=== PATIENT | female | born 1985 | race Native Hawaiian/Other Pacific Islander ===

== ENCOUNTER → 2016-07-17 | Outpatient (CLI) | payer OTHER ==
--- NOTE | 2016-07-17 13:10 | XR ---
Lumbar spine HISTORY: Low back pain 3 views of the lumbar spine No comparisons There is multilevel spondylosis, loss of disc height at L3-4, L4-5 and L5-S1. Sclerosis present in th e posterior elements. Lumbar vertebral bodies show preserved height, alignment, and bone mineralizati on IMPRESSION: Degenerative disc disease
== END | disposition home or self-care (01) ==
LOC: RADXRMAIN 11:07
PROVIDERS: ATTEND Internal Medicine
DX: M51.36 Other intervertebral disc degeneration, lumbar region (principal); M51.37 Other intervertebral disc degeneration, lumbosacral region
CPT/HCPCS: 72100

== ENCOUNTER → 2017-10-25 | Outpatient (CLI) | payer OTHER ==
--- NOTE | 2017-10-25 10:26 | US ---
EXAMINATION TYPE: US liver DATE OF EXAM: 10/25/2017 COMPARISON: US CLINICAL HISTORY: R94.5 ABN LIVER FUNCTIONS; on medication for diabetes and HTN; HT 5'9 and WT 284lbs per patient; gallbladder removed EXAM MEASUREMENTS: Liver Length: 21.1 cm Gallbladder Wall: surgically removed CBD: 0.4 cm Right Kidney: 12.2 x 6.9 x 4.9 cm Pancreas: Unremarkable Liver: enlarged. There is increased echogenicity of the hepatic parenchyma with diminished visualiza tion of the portal triads most commonly relating to hepatic steatosis and limiting evaluation for und erlying hepatic masses. Gallbladder: surgically absent Evidence for sonographic Griggs's sign: no CBD: wnl Right Kidney: wnl IMPRESSION: 1. Findings most commonly related to hepatic steatosis appearing mild in degree. Correlate with resul ts of the abnormal liver function tests. 2. Surgical absence of the gallbladder. Common bile duct is within normal limits.
== END | disposition home or self-care (01) ==
LOC: RADUSWWP 09:31
PROVIDERS: ATTEND Internal Medicine
DX: R94.5 Abnormal results of liver function studies (principal); Z90.49 Acquired absence of other specified parts of digestive tract
CPT/HCPCS: 76705

== ENCOUNTER 2020-03-30 14:42 | Emergency (ER) | payer OTHER ==
[2020-03-30 15:02] VITALS: RESP 18
[2020-03-30] MEDS ORDERED: ONDANSETRON 4 MG/2 ML VIAL IVP STA (15:06)
[2020-03-30] MEDS ORDERED: SODIUM CHLORIDE 0.9% 1,000 ML IV STA (15:07)
[2020-03-30] MEDS ORDERED: ALBUTEROL HFA INHALER INHALATION STA (15:07)
--- NOTE | 2020-03-30 15:12 | ED ---
General Adult HPI - General Chief complaint: Nausea/Vomiting/Diarrhea Stated complaint: Fever,cough,nausea Time Seen by Provider: 03/30/20 14:49 Source: patient Mode of arrival: ambulatory Limitations: no limitations - History of Present Illness Initial comments: 34-year-old female with a past medical history of asthma, ovarian cancer, diabetes mellitus, hyperlipidemia, hypertension, migraines to the emergency room for multiple complaints. Patient states she has been nauseous and vomiting since at least Sunday which is about 4 days. States she vomited 3 times today. Patient also admits to diarrhea. She denies abdominal pain. Patient states she is also significant cough. Denies coughing up any phlegm. Denies shortness of breath. States her chest feels like there is mucus in it. Patient states she went to [facility] and had a covid test that is not yet resulted. They did give her an inhaler. No chest x-ray. Patient's presents today because symptoms still have not resolved. She denies fevers. She denies chest pain or shortness of breath. Patient has no other complaints at this time including shortness of breath, chest pain, abdominal pain, headache, or visual changes. - Related Data Home Medications Medication Instructions Recorded Confirmed Atorvastatin [Lipitor] 10 mg PO HS 12/09/14 10/24/15 lisinopriL [Zestril] 10 mg PO DAILY 12/09/14 10/24/15 metFORMIN HCL [Glucophage] 500 mg PO BID 12/09/14 10/24/15 Previous Rx's Medication Instructions Recorded Azithromycin [Zithromax Z-pack (6 250 mg PO DIRECTED #6 tab 03/30/20 tabs)] Benzonatate [Tessalon Perles] 200 mg PO Q8H PRN #15 capsule 03/30/20 Allergies Allergy/AdvReac Type Severity Reaction Status Date / Time No Known Allergies Allergy Verified 03/30/20 15:02 Review of Systems ROS Statement: Those systems with pertinent positive or pertinent negative responses have been documented in the HPI. ROS Other: All systems not noted in ROS Statement are negative. Past Medical History Past Medical History: Asthma, Cancer, Diabetes Mellitus, Hyperlipidemia, Hypertension, Osteoarthritis (OA) Additional Past Medical History / Comment(s): Migraines. HX OVARIAN CA. Abdominal Pain- vomiting and diarrhea, ON/OFF. RECENT BLOOD IN URINE X2. History of Any Multi-Drug Resistant Organisms: None Reported Past Surgical History: Section Additional Past Surgical History / Comment(s): Rt Oophorectomy, recent EGD,colon oscopy Past Anesthesia/Blood Transfusion Reactions: No Reported Reaction Past Psychological History: No Psychological Hx Reported Smoking Status: Never smoker Past Alcohol Use History: None Reported Past Drug Use History: None Reported - Past Family History Mother Family Medical History: No Reported History General Exam Limitations: no limitations General appearance: alert, in no apparent distress Head exam: Present: atraumatic Eye exam: Present: normal appearance, PERRL, EOMI. Absent: scleral icterus ENT exam: Present: normal exam, mucous membranes moist Neck exam: Present: normal inspection, full ROM. Absent: tenderness, meningismus, lymphadenopathy Respiratory exam: Present: normal lung sounds bilaterally. Absent: respiratory distress, wheezes, rales, rhonchi, stridor Cardiovascular Exam: Present: regular rate, normal rhythm, normal heart sounds. Absent: systolic murmur, diastolic murmur, rubs, gallop, clicks GI/Abdominal exam: Present: soft, normal bowel sounds. Absent: distended, tenderness, guarding, rebound, rigid Neurological exam: Present: alert Course Vital Signs 03/30/20 03/30/20 14:50 16:24 Temperature 99.1 F Pulse Rate 85 82 Respiratory 18 18 Rate Blood Pressure 135/80 133/82 O2 Sat by Pulse 97 96 Oximetry EKG Findings - EKG Comments: EKG Findings:: Normal sinus rhythm, ventricular rate 66, CO interval 166, QTc 469 Medical Decision Making - Medical Decision Making Vitals are stable. Patient is well-appearing. No respiratory distress. CBC unremarkable. She does have leukopenia which is likely associated with viral illness. CMP does show hyperglycemia. Patient is insulin-dependent diabetic. She does have 4+ glucose in the urine. Ketones are likely related to patient's nausea and vomiting. Anion gap is 7. Repeat glucose is slightly improved at 262. Patient reports she hasn't used her insulin pen yet. She will use this when she gets home. Patient was given a liter of fluids and Zofran and did have improvement in symptoms. Coronavirus here is negative however. Chest x-ray however does show patchy scattered infiltrates greater on the left, consider atypical pneumonia. Patient was treated with Rocephin and azithromycin. Given high clinical suspicion of Covid PCR test was obtained as well at Dr. Gardner's request. - Lab Data Result diagrams: 03/30/20 15:21 03/30/20 15:21 Lab Results 03/30/20 03/30/20 03/30/20 Range/Units 15:02 15:02 15:21 WBC 2.8 L (3.8-10.6) k/uL RBC 4.92 (3.80-5.40) m/uL Hgb 14.6 (11.4-16.0) gm/dL Hct 42.0 (34.0-46.0) % MCV 85.3 (80.0-100.0) fL MCH 29.6 (25.0-35.0) pg MCHC 34.7 (31.0-37.0) g/dL RDW 11.5 (11.5-15.5) % Plt Count 189 (150-450) k/uL MPV 7.6 Neutrophils % 61 % Lymphocytes % 28 % Monocytes % 6 % Eosinophils % 1 % Basophils % 2 % Neutrophils # 1.7 (1.3-7.7) k/uL Lymphocytes # 0.8 L (1.0-4.8) k/uL Monocytes # 0.2 (0-1.0) k/uL Eosinophils # 0.0 (0-0.7) k/uL Basophils # 0.1 (0-0.2) k/uL Sodium (137-145) mmol/L Potassium (3.5-5.1) mmol/L Chloride (98-107) mmol/L Carbon Dioxide (22-30) mmol/L Anion Gap mmol/L BUN (7-17) mg/dL Creatinine (0.52-1.04) mg/dL Est GFR (CKD-EPI)AfAm (>60 ml/min/1.73 sqM) Est GFR (CKD-EPI)NonAf (>60 ml/min/1.73 sqM) Glucose (74-99) mg/dL Calcium (8.4-10.2) mg/dL Total Bilirubin (0.2-1.3) mg/dL AST (14-36) U/L ALT (4-34) U/L Alkaline Phosphatase (38-126) U/L Total Protein (6.3-8.2) g/dL Albumin (3.5-5.0) g/dL Lipase (23-300) U/L Urine Color Yellow Urine Appearance Clear (Clear) Urine pH 6.5 (5.0-8.0) Ur Specific [place] 1.027 (1.001-1.035) Urine Protein 1+ H (Negative) Urine Glucose (UA) 4+ H (Negative) Urine Ketones 2+ H (Negative) Urine Blood Negative (Negative) Urine Nitrite Negative (Negative) Urine Bilirubin Negative (Negative) Urine Urobilinogen <2.0 (<2.0) mg/dL Ur Leukocyte Esterase Small H (Negative) Urine RBC <1 (0-5) /hpf Urine WBC 6 H (0-5) /hpf Ur Squamous Epith Cells 1 (0-4) /hpf Urine Bacteria Rare H (None) /hpf Urine Mucus Few H (None) /hpf Urine HCG, Qual Not Detected (Not Detectd) Coronavirus (PCR) (Not Detectd) 03/30/20 03/30/20 Range/Units 15:21 15:21 WBC (3.8-10.6) k/uL RBC (3.80-5.40) m/uL Hgb (11.4-16.0) gm/dL Hct (34.0-46.0) % MCV (80.0-100.0) fL MCH (25.0-35.0) pg MCHC (31.0-37.0) g/dL RDW (11.5-15.5) % Plt Count (150-450) k/uL MPV Neutrophils % % Lymphocytes % % Monocytes % % Eosinophils % % Basophils % % Neutrophils # (1.3-7.7) k/uL Lymphocytes # (1.0-4.8) k/uL Monocytes # (0-1.0) k/uL Eosinophils # (0-0.7) k/uL Basophils # (0-0.2) k/uL Sodium 135 L (137-145) mmol/L Potassium 4.5 (3.5-5.1) mmol/L Chloride 102 (98-107) mmol/L Carbon Dioxide 26 (22-30) mmol/L Anion Gap 7 mmol/L BUN 6 L (7-17) mg/dL Creatinine 0.34 L (0.52-1.04) mg/dL Est GFR (CKD-EPI)AfAm >90 (>60 ml/min/1.73 sqM) Est GFR (CKD-EPI)NonAf >90 (>60 ml/min/1.73 sqM) Glucose 272 H (74-99) mg/dL Calcium 9.3 (8.4-10.2) mg/dL Total Bilirubin 0.6 (0.2-1.3) mg/dL AST 41 H (14-36) U/L ALT 26 (4-34) U/L Alkaline Phosphatase 90 (38-126) U/L Total Protein 7.1 (6.3-8.2) g/dL Albumin 3.4 L (3.5-5.0) g/dL Lipase 35 (23-300) U/L Urine Color Urine Appearance (Clear) Urine pH (5.0-8.0) Ur Specific [place] (1.001-1.035) Urine Protein (Negative) Urine Glucose (UA) (Negative) Urine Ketones (Negative) Urine Blood (Negative) Urine Nitrite (Negative) Urine Bilirubin (Negative) Urine Urobilinogen (<2.0) mg/dL Ur Leukocyte Esterase (Negative) Urine RBC (0-5) /hpf Urine WBC (0-5) /hpf Ur Squamous Epith Cells (0-4) /hpf Urine Bacteria (None) /hpf Urine Mucus (None) /hpf Urine HCG, Qual (Not Detectd) Coronavirus (PCR) Not Detected (Not Detectd) Disposition Clinical Impression: Cough, Pneumonia, Hyperglycemia Disposition: HOME SELF-CARE Condition: Good Instructions (If sedation given, give patient instructions): Acute Nausea and Vomiting (ED), Acute Cough (ED) Additional Instructions: Please take antibiotic as directed. You were given a dose today so start this tomorrow. Take Tessalon Perles as needed for cough. Follow up on additional Covid test. Drink plenty of fluids. Follow-up with your doctor for high blood sugar. Return to the emergency room for any worsening symptoms. Prescriptions: Benzonatate [Tessalon Perles] 200 mg PO Q8H PRN #15 capsule PRN Reason: Cough Azithromycin [Zithromax Z-pack (6 tabs)] 250 mg PO DIRECTED #6 tab Is patient prescribed a controlled substance at d/c from ED?: No Referrals: Nael Alcocer MD [Primary Care Provider] - 1-2 days Time of Disposition: 16:26
[2020-03-30 15:16] LABS: Appearance,Urine Clear (Clear); Bacteria,Urine Rare /hpf; Bilirubin,Urine Negative (Negative); Blood,Urine Negative (Negative); Color,Urine Yellow; Glucose,Urine (UA) 4+ (Negative); Leukocyte Esterase,Urine Small (Negative); Mucus,Urine Few /hpf; Nitrite,Urine Negative (Negative); PH, Urine 6.5 (5.0-8.0); Protein,Urine 1+ (Negative); RBC,Urine <1 /hpf (0-5); Specific Gravity,Urine 1.027 (1.001-1.035); Squamous Epithelial Cell,Urine 1 /hpf (0-4); Urobilinogen,Urine <2.0 mg/dL (<2.0); WBC,Urine 6 /hpf (0-5)
[2020-03-30 15:18] LABS: Ketones,Urine 2+ (Negative)
--- NOTE | 2020-03-30 15:48 | XR ---
EXAMINATION TYPE: XR chest 1V portable DATE OF EXAM: 03/30/2020 COMPARISON: None INDICATION: Cough nausea vomiting fever TECHNIQUE: Single frontal view of the chest is obtained. FINDINGS: The heart size is normal. The pulmonary vasculature is normal. Patchy infiltrate is present greater on the left. Findings are nonspecific. Atypical pneumonia should be considered. IMPRESSION: 1. Patchy scattered infiltrates greater on the left. Consider atypical pneumonia. Follow-up can be pe rformed as clinically indicated.
[2020-03-30 15:57] LABS: ALT 26 U/L (4-34); AST 41 U/L (14-36); African American GFR (CKD) >90 (>60 ml/min/1.73 sqM); Albumin 3.4 g/dL (3.5-5.0); Alkaline Phosphatase 90 U/L (38-126); Anion Gap 7 mmol/L; Blood Urea Nitrogen 6 mg/dL (7-17); Calcium 9.3 mg/dL (8.4-10.2); Carbon Dioxide 26 mmol/L (22-30); Chloride 102 mmol/L (98-107); Glucose 272 mg/dL (74-99); Lipase 35 U/L (23-300); Non-African American GFR(CKD) >90 (>60 ml/min/1.73 sqM); Potassium 4.5 mmol/L (3.5-5.1); Sodium 135 mmol/L (137-145); Total Bilirubin 0.6 mg/dL (0.2-1.3); Total Protein 7.1 g/dL (6.3-8.2)
[2020-03-30 16:00] LABS: Basophils # (A) 0.1 k/uL (0-0.2); Basophils % (A) 2 %; Eosinophils % (A) 1 %; HGB 14.6 gm/dL (11.4-16.0); Lymphocytes # (A) 0.8 k/uL (1.0-4.8); Lymphocytes % (A) 28 %; MCH 29.6 pg (25.0-35.0); MCHC 34.7 g/dL (31.0-37.0); MCV 85.3 fL (80.0-100.0); Mean Platelet Volume 7.6; Monocytes # (A) 0.2 k/uL (0-1.0); Monocytes % (A) 6 %; Neutrophils # (A) 1.7 k/uL (1.3-7.7); Neutrophils % (A) 61 %; Platelet Count 189 k/uL (150-450); RBC 4.92 m/uL (3.80-5.40); RDW 11.5 % (11.5-15.5); WBC 2.8 k/uL (3.8-10.6)
[2020-03-30] MEDS ORDERED: ACETAMINOPHEN TAB 500 MG TAB PO STA (16:22)
[2020-03-30] MEDS ORDERED: AZITHROMYCIN 500 MG TAB PO STA (16:22)
[2020-03-30] MEDS ORDERED: cefTRIAXone IN SWFI 1,000 MG/10 ML SYRINGE IVP STA (16:22)
[2020-03-30 16:25] VITALS: BP 133/82; PULSE 82
[2020-03-30 16:31] LABS: Glucose,Whole Blood 260 mg/dL (75-99)
[2020-03-30 16:43] VITALS: TEMP 98.6
== END 2020-03-30 16:45 | disposition home or self-care (01) ==
LOC: EC 14:42
DX: J18.9 Pneumonia, unspecified organism (principal); E11.65 Type 2 diabetes mellitus with hyperglycemia; E78.5 Hyperlipidemia, unspecified; I10 Essential (primary) hypertension; Z20.822 Contact with and (suspected) exposure to COVID-19; Z79.84 Long term (current) use of oral hypoglycemic drugs; Z79.899 Other long term (current) drug therapy; Z90.721 Acquired absence of ovaries, unilateral; Z85.43 Personal history of malignant neoplasm of ovary
CPT/HCPCS: 36415; 94640; 80053; 83690; 85025; 81001; 81025; 87635; 71045; 99284; 96374; 96375; 96361; U0003; U0005; J2405; J0696

== ENCOUNTER 2020-04-22 14:01 | Emergency (ER) | payer OTHER ==
[2020-04-22 14:20] VITALS: RESP 18; TEMP 98.8
--- NOTE | 2020-04-22 14:58 | ED ---
General Adult HPI - General Chief complaint: Recheck/Abnormal Lab/Rx Stated complaint: leg pain Time Seen by Provider: 04/22/20 14:30 Source: patient Mode of arrival: ambulatory Limitations: no limitations - History of Present Illness Initial comments: 34-year-old female with a past medical history of IDDM, hyperlipidemia, hypertension, neuropathy, ovarian cancer with right oophorectomy presents to the emergency room for ultimate complaints. Patient initial complaint includes left toe pain. Patient reports she has had a chronic wound on the left toe for probably 6 months being treated by Dr. Sanchez. States he usually cleans up the wound but she has not been able to see him for some time. Reports that she noticed a red streak going up her toe and she is having left calf pain. Patient is concerned the infection could be worsening. She denies fevers. Patient's second complaint includes vaginal swelling. Patient reports she has had pain a nd swelling in the vaginal area for the past 2 days. Patient reports she recently did discontinue an antibiotic for pneumonia. She states it feels somewhat raw. Admits to slight discharge. Denies abdominal pain.Patient has no other complaints at this time including shortness of breath, chest pain, abdominal pain, nausea or vomiting, headache, or visual changes. - Related Data Home Medications Medication Instructions Recorded Confirmed Azithromycin [Zithromax Z-pack (6 See Taper PO DAILY 04/22/20 04/22/20 tabs)] Insulin Detemir (Levemir) [Levemir] 35 unit SQ DAILY 04/22/20 04/22/20 Loratadine [Claritin] 10 mg PO DAILY 04/22/20 04/22/20 lisinopriL [Zestril] 5 mg PO DAILY 04/22/20 04/22/20 medroxyPROGESTERone [Depo-Provera] 150 mg IM Q90D 04/22/20 04/22/20 Previous Rx's Medication Instructions Recorded Amoxicillin/Potassium Clav 1 tab PO Q12HR #20 tab 04/22/20 [Augmentin 875-125 Tablet] Fluconazole [Diflucan] 150 mg PO DAILY #2 tab 04/22/20 Nystatin 100,000Unit/gm Cream 1 applic TOPICAL TID #20 gm 04/22/20 [Mycostatin Cream] Allergies Allergy/AdvReac Type Severity Reaction Status Date / Time No Known Allergies Allergy Verified 04/22/20 15:26 Review of Systems ROS Statement: Those systems with pertinent positive or pertinent negative responses have been documented in the HPI. ROS Other: All systems not noted in ROS Statement are negative. Past Medical History Past Medical History: Asthma, Cancer, Diabetes Mellitus, Hyperlipidemia, Hyper tension, Osteoarthritis (OA) Additional Past Medical History / Comment(s): Migraines. HX OVARIAN CA. Abdominal Pain- vomiting and diarrhea, ON/OFF. RECENT BLOOD IN URINE X2. History of Any Multi-Drug Resistant Organisms: None Reported Past Surgical History: Section Additional Past Surgical History / Comment(s): Rt Oophorectomy, recent EGD,colonoscopy Past Anesthesia/Blood Transfusion Reactions: No Reported Reaction Past Psychological History: No Psychological Hx Reported Smoking Status: Never smoker Past Alcohol Use History: None Reported Past Drug Use History: Marijuana - Past Family History Mother Family Medical History: No Reported History General Exam Limitations: no limitations General appearance: alert, in no apparent distress Head exam: Present: atraumatic Eye exam: Present: normal appearance, PERRL, EOMI. Absent: scleral icterus ENT exam: Present: normal exam, mucous membranes moist Neck exam: Present: normal inspection, full ROM Respiratory exam: Present: normal lung sounds bilaterally. Absent: respiratory distress, wheezes Cardiovascular Exam: Present: regular rate, normal rhythm, normal heart sounds GI/Abdominal exam: Present: soft, normal bowel sounds. Absent: distended, tenderness External exam: Present: erythema (Slight erythema noted around the vulva ). Absent: normal external exam, swelling, lesions, lacerations, ecchymosis Speculum exam: Present: vaginal discharge (White vaginal discharge consistent with likely yeast). Absent: normal speculum exam, erythema, cervical discharge, vaginal bleeding, foreign body, tissue, laceration By manual exam: Absent: cervical motion tenderness Course Vital Signs 04/22/20 04/22/20 14:16 16:28 Temperature 98.8 F Pulse Rate 108 H 89 Respiratory 18 18 Rate Blood Pressure 141/91 138/75 O2 Sat by Pulse 99 98 Oximetry Medical Decision Making - Medical Decision Making Vitals are stable. Patient initially tachycardic over this is likely secondary to pain. Physical exam does reveal an open wound on the plantar aspect of the left second toe. This does not track to the bone when the Q-tip is used to inspect the wound. I did do a wound culture. Patient reported streaking redness up the foot. I did not appreciate this and she states it seems to have improved. CBC shows a normal white blood cell count of 7.2. CMP reveals hyperglycemia. Patient is an insulin-dependent diabetic. Glucose initially 411. She was given 1.5 L of fluids this did improve to 354. At that point she was given 10 IV insulin. X-ray of the toe did not show any evidence of osteomyelitis. Patient was also complaining of left calf pain, ultrasound negative. Urinalysis does show 1+ ketones. She does have 26 white blood cells however there are 6 squamous cells as well. I did discuss this case with patient's infectious disease physician Dr. Sanchez. He recommends starting patient on Augmentin and having him follow-up in his office. She will call tomorrow for an appointment. Patient also has erythema noted of the genital area and physical exam at this point is consistent with a yeast infection. She'll be treated with Diflucan. However I do have genital culture pending. - Lab Data Result diagrams: 04/22/20 15:43 04/22/20 15:43 Lab Results 04/22/20 04/22/20 04/22/20 Range/Units 15:25 15:25 15:30 WBC (3.8-10.6) k/uL RBC (3.80-5.40) m/uL Hgb (11.4-16.0) gm/dL Hct (34.0-46.0) % MCV (80.0-100.0) fL MCH (25.0-35.0) pg MCHC (31.0-37.0) g/dL RDW (11.5-15.5) % Plt Count (150-450) k/uL MPV Neutrophils % % Lymphocytes % % Monocytes % % Eosinophils % % Basophils % % Neutrophils # (1.3-7.7) k/uL Lymphocytes # (1.0-4.8) k/uL Monocytes # (0-1.0) k/uL Eosinophils # (0-0.7) k/uL Basophils # (0-0.2) k/uL Sodium (137-145) mmol/L Potassium (3.5-5.1) mmol/L Chloride (98-107) mmol/L Carbon Dioxide (22-30) mmol/L Anion Gap mmol/L BUN (7-17) mg/dL Creatinine (0.52-1.04) mg/dL Est GFR (CKD-EPI)AfAm (>60 ml/min/1.73 sqM) Est GFR (CKD-EPI)NonAf (>60 ml/min/1.73 sqM) Glucose (74-99) mg/dL POC Glucose (mg/dL) (75-99) mg/dL POC Glu Scuba Diver ID Plasma Lactic Acid Harris (0.7-2.0) mmol/L Calcium (8.4-10.2) mg/dL Total Bilirubin (0.2-1.3) mg/dL AST (14-36) U/L ALT (4-34) U/L Alkaline Phosphatase (38-126) U/L C-Reactive Protein (<10.0) mg/L Total Protein (6.3-8.2) g/dL Albumin (3.5-5.0) g/dL Urine Color Light Yellow Urine Appearance Cloudy H (Clear) Urine pH 6.0 (5.0-8.0) Ur Specific [place] 1.040 H (1.001-1.035) Urine Protein Negative (Negative) Urine Glucose (UA) 4+ H (Negative) Urine Ketones 1+ H (Negative) Urine Blood Small H (Negative) Urine Nitrite Negative (Negative) Urine Bilirubin Negative (Negative) Urine Urobilinogen <2.0 (<2.0) mg/dL Ur Leukocyte Esterase Large H (Negative) Urine RBC 15 H (0-5) /hpf Urine WBC 26 H (0-5) /hpf Ur Squamous Epith Cells 6 H (0-4) /hpf Urine Bacteria Rare H (None) /hpf Urine HCG, Qual Not Detected (Not Detectd) Trichomonas Ag (Rapid) Negative (Negative) 04/22/20 04/22/20 04/22/20 Range/Units 15:43 15:43 15:43 WBC 7.2 (3.8-10.6) k/uL RBC 5.18 (3.80-5.40) m/uL Hgb 15.6 (11.4-16.0) gm/dL Hct 45.0 (34.0-46.0) % MCV 86.8 (80.0-100.0) fL MCH 30.2 (25.0-35.0) pg MCHC 34.8 (31.0-37.0) g/dL RDW 12.8 (11.5-15.5) % Plt Count 234 (150-450) k/uL MPV 8.0 Neutrophils % 69 % Lymphocytes % 24 % Monocytes % 3 % Eosinophils % 2 % Basophils % 1 % Neutrophils # 4.9 (1.3-7.7) k/uL Lymphocytes # 1.7 (1.0-4.8) k/uL Monocytes # 0.2 (0-1.0) k/uL Eosinophils # 0.1 (0-0.7) k/uL Basophils # 0.0 (0-0.2) k/uL Sodium 132 L (137-145) mmol/L Potassium 4.3 (3.5-5.1) mmol/L Chloride 99 (98-107) mmol/L Carbon Dioxide 25 (22-30) mmol/L Anion Gap 8 mmol/L BUN 11 (7-17) mg/dL Creatinine 0.38 L (0.52-1.04) mg/dL Est GFR (CKD-EPI)AfAm >90 (>60 ml/min/1.73 sqM) Est GFR (CKD-EPI)NonAf >90 (>60 ml/min/1.73 sqM) Glucose 411 H (74-99) mg/dL POC Glucose (mg/dL) (75-99) mg/dL POC Glu Scuba Diver ID Plasma Lactic Acid [place] 1.6 (0.7-2.0) mmol/L Calcium 9.8 (8.4-10.2) mg/dL Total Bilirubin 0.5 (0.2-1.3) mg/dL AST 28 (14-36) U/L ALT 31 (4-34) U/L Alkaline Phosphatase 100 (38-126) U/L C-Reactive Protein 7.9 (<10.0) mg/L Total Protein 7.5 (6.3-8.2) g/dL Albumin 3.7 (3.5-5.0) g/dL Urine Color Urine Appearance (Clear) Urine pH (5.0-8.0) Ur Specific [place] (1.001-1.035) Urine Protein (Negative) Urine Glucose (UA) (Negative) Urine Ketones (Negative) Urine Blood (Negative) Urine Nitrite (Negative) Urine Bilirubin (Negative) Urine Urobilinogen (<2.0) mg/dL Ur Leukocyte Esterase (Negative) Urine RBC (0-5) /hpf Urine WBC (0-5) /hpf Ur Squamous Epith Cells (0-4) /hpf Urine Bacteria (None) /hpf Urine HCG, Qual (Not Detectd) Trichomonas Ag (Rapid) (Negative) 04/22/20 Range/Units 17:02 WBC (3.8-10.6) k/uL RBC (3.80-5.40) m/uL Hgb (11.4-16.0) gm/dL Hct (34.0-46.0) % MCV (80.0-100.0) fL MCH (25.0-35.0) pg MCHC (31.0-37.0) g/dL RDW (11.5-15.5) % Plt Count (150-450) k/uL MPV Neutrophils % % Lymphocytes % % Monocytes % % Eosinophils % % Basophils % % Neutrophils # (1.3-7.7) k/uL Lymphocytes # (1.0-4.8) k/uL Monocytes # (0-1.0) k/uL Eosinophils # (0-0.7) k/uL Basophils # (0-0.2) k/uL Sodium (137-145) mmol/L Potassium (3.5-5.1) mmol/L Chloride (98-107) mmol/L Carbon Dioxide (22-30) mmol/L Anion Gap mmol/L BUN (7-17) mg/dL Creatinine (0.52-1.04) mg/dL Est GFR (CKD-EPI)AfAm (>60 ml/min/1.73 sqM) Est GFR (CKD-EPI)NonAf (>60 ml/min/1.73 sqM) Glucose (74-99) mg/dL POC Glucose (mg/dL) 354 H (75-99) mg/dL POC Glu Scuba Diver ID Manuel Aguiar Plasma Lactic Acid [place] (0.7-2.0) mmol/L Calcium (8.4-10.2) mg/dL Total Bilirubin (0.2-1.3) mg/dL AST (14-36) U/L ALT (4-34) U/L Alkaline Phosphatase (38-126) U/L C-Reactive Protein (<10.0) mg/L Total Protein (6.3-8.2) g/dL Albumin (3.5-5.0) g/dL Urine Color Urine Appearance (Clear) Urine pH (5.0-8.0) Ur Specific [place] (1.001-1.035) Urine Protein (Negative) Urine Glucose (UA) (Negative) Urine Ketones (Negative) Urine Blood (Negative) Urine Nitrite (Negative) Urine Bilirubin (Negative) Urine Urobilinogen (<2.0) mg/dL Ur Leukocyte Esterase (Negative) Urine RBC (0-5) /hpf Urine WBC (0-5) /hpf Ur Squamous Epith Cells (0-4) /hpf Urine Bacteria (None) /hpf Urine HCG, Qual (Not Detectd) Trichomonas Ag (Rapid) (Negative) Disposition Clinical Impression: Hyperglycemia, Chronic wound of extremity, Cellulitis Disposition: HOME SELF-CARE Condition: Good Instructions (If sedation given, give patient instructions): Cellulitis (ED), Chronic Wound Care (ED) Additional Instructions: Please take antibiotic as directed. Take your Diflucan as well. Please monitor for worsening symptoms and return if these occur. Otherwise follow-up closely with Dr. Jaimes by calling tomorrow for an appointment. Follow up with her VEH[employer] as well for vaginal discomfort. Prescriptions: Amoxicillin/Potassium Clav [Augmentin 875-125 Tablet] 1 tab PO Q12HR #20 tab Fluconazole [Diflucan] 150 mg PO DAILY #2 tab Nystatin 100,000Unit/gm Cream [Mycostatin Cream] 1 applic TOPICAL TID #20 gm Is patient prescribed a controlled substance at d/c from ED?: No Referrals: Nael Alcocer MD [Primary Care Provider] - 1-2 days Darin Jaimes MD [STAFF PHYSICIAN] - 1-2 days Time of Disposition: 17:57
--- NOTE | 2020-04-22 15:23 | XR ---
EXAMINATION TYPE: XR toes LT DATE OF EXAM: 04/22/2020 COMPARISON: NONE HISTORY: Chronic wound TECHNIQUE: 3 views of the left second toe are submitted. FINDINGS: Soft tissue ulceration noted to involve the left second toe. There is no evidence for bony destructive process to suggest osteomyelitis. No fracture or dislocation seen. IMPRESSION: Open wound left second toe without radiographic evidence to suggest osteomyelitis at thi s time.
[2020-04-22] MEDS ORDERED: HYDROmorphone 0.5 MG/0.5 ML SYRINGE IVP STA (15:26)
[2020-04-22] MEDS: SODIUM CHLORIDE 0.9% 500 ML 500 ML IV SCH ×2 (15:40→15:47)
[2020-04-22 15:43] LABS: Appearance,Urine Cloudy (Clear); Bacteria,Urine Rare /hpf; Bilirubin,Urine Negative (Negative); Blood,Urine Small (Negative); Color,Urine Light Yellow; Glucose,Urine (UA) 4+ (Negative); Ketones,Urine 1+ (Negative); Leukocyte Esterase,Urine Large (Negative); Nitrite,Urine Negative (Negative); Protein,Urine Negative (Negative); RBC,Urine 15 /hpf (0-5); Squamous Epithelial Cell,Urine 6 /hpf (0-4); Urobilinogen,Urine <2.0 mg/dL (<2.0); WBC,Urine 26 /hpf (0-5)
[2020-04-22 15:53] LABS: Basophils % (A) 1 %; Eosinophils # (A) 0.1 k/uL (0-0.7); Eosinophils % (A) 2 %; HGB 15.6 gm/dL (11.4-16.0); Lymphocytes # (A) 1.7 k/uL (1.0-4.8); Lymphocytes % (A) 24 %; MCH 30.2 pg (25.0-35.0); MCHC 34.8 g/dL (31.0-37.0); MCV 86.8 fL (80.0-100.0); Monocytes # (A) 0.2 k/uL (0-1.0); Monocytes % (A) 3 %; Neutrophils # (A) 4.9 k/uL (1.3-7.7); Neutrophils % (A) 69 %; Platelet Count 234 k/uL (150-450); RBC 5.18 m/uL (3.80-5.40); RDW 12.8 % (11.5-15.5); WBC 7.2 k/uL (3.8-10.6)
[2020-04-22 16:04] LABS: ALT 31 U/L (4-34); AST 28 U/L (14-36); African American GFR (CKD) >90 (>60 ml/min/1.73 sqM); Albumin 3.7 g/dL (3.5-5.0); Alkaline Phosphatase 100 U/L (38-126); Anion Gap 8 mmol/L; Blood Urea Nitrogen 11 mg/dL (7-17); C Reactive Protein 7.9 mg/L (<10.0); Calcium 9.8 mg/dL (8.4-10.2); Carbon Dioxide 25 mmol/L (22-30); Chloride 99 mmol/L (98-107); Glucose 411 mg/dL (74-99); Non-African American GFR(CKD) >90 (>60 ml/min/1.73 sqM); Potassium 4.3 mmol/L (3.5-5.1); Sodium 132 mmol/L (137-145); Total Bilirubin 0.5 mg/dL (0.2-1.3); Total Protein 7.5 g/dL (6.3-8.2)
--- NOTE | 2020-04-22 16:15 | US ---
EXAMINATION TYPE: US venous doppler duplex LE LT DATE OF EXAM: 04/22/2020 4:04 PM COMPARISON: NONE CLINICAL HISTORY: r/o dvt. diabetic pt with left toe wounds, pain in calf, no h/o dvt SIDE PERFORMED: Left TECHNIQUE: The lower extremity deep venous system is examined utilizing real time linear array sonog garret with graded compression, doppler sonography and color-flow sonography. VESSELS IMAGED: Common Femoral Vein Deep Femoral Vein Greater Saphenous Vein * Femoral Vein Popliteal Vein Small Saphenous Vein * Proximal Calf Veins (* superficial vessels) Left Leg: Negative for DVT IMPRESSION: No evidence for DVT.
[2020-04-22] MEDS ORDERED: SODIUM CHLORIDE 0.9% 1,000 ML IV STA (16:16)
[2020-04-22] MEDS ORDERED: cefTRIAXone IN SWFI 1,000 MG/10 ML SYRINGE IVP STA (16:47)
[2020-04-22 17:03] LABS: Glucose,Whole Blood 354 mg/dL (75-99)
[2020-04-22] MEDS ORDERED: INSULIN REGULAR 100 UNIT/ML VIAL IV STA (17:31)
[2020-04-22] MEDS ORDERED: ACET/COD 300 MG/30 MG STARTER PACK 6 TAB BTL PO STA (18:05)
[2020-04-22 18:25] LABS: Glucose,Whole Blood 241 mg/dL (75-99)
[2020-04-22 18:57] VITALS: BP 120/84; PULSE 98
[2020-04-23 16:21] LABS: C. trachomatis,PCR Negative (Neg,Equiv); Chlamydia trachomatis Source Vagina; N. gonorrhoeae,PCR Negative (Neg,Equiv); Neisseria Source Vagina
== END 2020-04-22 18:57 | disposition home or self-care (01) ==
LOC: EC 14:01
DX: L03.032 Cellulitis of left toe (principal); I10 Essential (primary) hypertension; E11.65 Type 2 diabetes mellitus with hyperglycemia; Z79.4 Long term (current) use of insulin; Z79.899 Other long term (current) drug therapy; Z85.43 Personal history of malignant neoplasm of ovary; Z90.721 Acquired absence of ovaries, unilateral
CPT/HCPCS: 36415; 80053; 83605; 85025; 86140; 81001; 81025; 87040; 87808; 87491; 87591; 87070; 87086; 87205; 87077; 87186; 73660; 93971; 99284; 96374; 96375; 96361 ×2; J0696; J1170

== ENCOUNTER → 2022-03-16 | Outpatient (CLI) | payer OTHER ==
--- NOTE | 2022-03-16 14:44 | US ---
EXAMINATION TYPE: US venous doppler duplex LE RT DATE OF EXAM: 03/16/2022 1:58 PM COMPARISON: NONE CLINICAL HISTORY: 36-year-old female M79.661 PAIN IN RIGHT LOWER LEG. SIDE PERFORMED: Right TECHNIQUE: The lower extremity deep venous system is examined utilizing real time linear array sonog garret with graded compression, doppler sonography and color-flow sonography. FINDINGS: VESSELS IMAGED: Common Femoral Vein Deep Femoral Vein Greater Saphenous Vein * Femoral Vein Popliteal Vein Small Saphenous Vein * Proximal Calf Veins (* superficial vessels) Right Leg: Negative for DVT Additional targeted scanning lateral aspect of the calf at the site of patient's pain. No abnormal fl uid collection is identified here. IMPRESSION: No evidence for DVT within the right lower extremity imaged from the groin to the upper c brittany.
== END | disposition home or self-care (01) ==
LOC: RADUSWWP 13:56
PROVIDERS: ATTEND Family Medicine
DX: M79.661 Pain in right lower leg (principal)

== ENCOUNTER 2022-06-30 17:47 | Inpatient (IN) | payer OTHER ==
--- NOTE | 2022-06-30 17:59 | ED ---
General Adult HPI - General Chief complaint: Skin/Abscess/Foreign Body Stated complaint: lt & rt feet swelling Time Seen by Provider: 06/30/22 17:58 Source: patient Mode of arrival: wheelchair Limitations: no limitations - Related Data Home Medications Medication Instructions Recorded Confirmed Azithromycin [Zithromax Z-pack (6 See Taper PO DAILY 04/22/20 04/22/20 tabs)] Insulin Detemir (Levemir) [Levemir] 35 unit SQ DAILY 04/22/20 04/22/20 Loratadine [Claritin] 10 mg PO DAILY 04/22/20 04/22/20 lisinopriL [Zestril] 5 mg PO DAILY 04/22/20 04/22/20 medroxyPROGESTERone [Depo-Provera] 150 mg IM Q90D 04/22/20 04/22/20 Previous Rx's Medication Instructions Recorded Amoxicillin/Potassium Clav 1 tab PO Q12HR #20 tab 04/22/20 [Augmentin 875-125 Tablet] Fluconazole [Diflucan] 150 mg PO DAILY #2 tab 04/22/20 Nystatin 100,000Unit/gm Cream 1 applic TOPICAL TID #20 gm 04/22/20 [Mycostatin Cream] Allergies Allergy/AdvReac Type Severity Reaction Status Date / Time vancomycin Allergy kidney Verified 06/30/22 17:57 problems Review of Systems ROS Statement: Those systems with pertinent positive or pertinent negative responses have been documented in the HPI. ROS Other: All systems not noted in ROS Statement are negative. Past Medical History Past Medical History: Asthma, Cancer, Diabetes Mellitus, Hyperlipidemia, Hypertension, Osteoarthritis (OA) Additional Past Medical History / Comment(s): Migraines. HX OVARIAN CA. Abdominal Pain- vomiting and diarrhea, ON/OFF. RECENT BLOOD IN URINE X2. History of Any Multi-Drug Resistant Organisms: None Reported Past Surgical History: Section, Orthopedic Surgery Additional Past Surgical History / Comment(s): Rt Oophorectomy, recent EGD,colonoscopy, toe amputation Past Anesthesia/Blood Transfusion Reactions: No Reported Reaction Past Psychological History: No Psychological Hx Reported Smoking Status: Never smoker Past Alcohol Use History: None Reported Past Drug Use History: Marijuana - Past Family History Mother Family Medical History: No Reported History General Exam Limitations: no limitations Course Vital Signs 06/30/22 17:52 Temperature 98.4 F Pulse Rate 88 Respiratory 20 Rate Blood Pressure 130/83 O2 Sat by Pulse 99 Oximetry Medical Decision Making - Medical Decision Making Was pt. sent in by a medical professional or institution (CHRIS Silverman, HEAT TREATER APPRENTICE, urgent care, hospital, or prison...) When possible be specific @ -No Did you speak to anyone other than the patient for history (EMS, parent, family, police, friend...)? What history was obtained from this source @ -No Did you review nursing and triage notes (agree or disagree)? Why? @ -I reviewed and agree with nursing and triage notes Were old charts reviewed (outside hosp., previous admission, EMS record, old EKG, old radiological studies, urgent care reports/EKG's, prison records)? Report findings @ -No old charts were reviewed Differential Diagnosis (chest pain, altered mental status, abdominal pain women, abdominal pain men, vaginal bleeding, musculoskeletal, weakness, fever, dyspnea, syncope, headache, dizziness, GI bleed, back pain, seizure, CVA, palpatations, mental health)? @ -Differential Chest Pain: Stable Angina, Unstable Angina, STEMI, NSTEMI Aortic Dissection, Pneumothorax, Musculoskeletal, Esophageal Spasm GERD, Cholecystitis, Pancreatitis, Zoster, this is not meant to be an all-inclusive list. EKG interpreted by me (3pts min.). @ -See above X-rays interpreted by me (1pt min.). @ -None done CT interpreted by me (1pt min.). @ -None done U/S interpreted by me (1pt. min.). @ -None done What testing was considered but not performed or refused? (CT, X-rays, U/S, labs)? Why? @ -None What meds were considered but not given or refused? Why? @ -None Did you discuss the management of the patient with other professionals (professionals i.e. CHRIS Silverman, HEAT TREATER APPRENTICE, lab, RT, psych nurse, drug abuse social worker, digital content manager, teacher, commissary officer, director of casework services)? Give summary @ -No Was smoking cessation discussed for >3mins.? @ -No Was critical care preformed (if so, how long)? @ -No Were there social determinants of health that impacted care today? How? (Homelessness, low income, unemployed, alcoholism, drug addiction, transportation, low edu. Level, literacy, decrease access to med. care, senior living, rehab)? @ -No Was there de-escalation of care discussed even if they declined (Discuss DNR or withdrawal of care, Hospice)? DNR status @ -No What co-morbidities impacted this encounter? (DM, HTN, Smoking, COPD, CAD, Canc er, CVA, ARF, Chemo, Hep., AIDS, mental health diagnosis, sleep apnea, morbid obesity)? @ -None Was patient admitted / discharged? Hospital course, mention meds given and route, prescriptions, significant lab abnormalities, going to OR and other pertinent info. @ -50-year-old male presents to the emergency department for abnormal EKG. Patient denies any chest symptoms whatsoever. He has been feeling well and asymptomatic. He was sent in from her PCPs office after EKG was performed. EKG performed here is unremarkable. Seems completely normal. Patient had blood work drawn. Labs are unremarkable. Troponin is negative. Patient monitored in the emergency department for 2 hours. Reevaluated at bedside at 5:57 PM found with stable medical condition. Patient discharged advised follow-up with primary care doctor. Undiagnosed new problem with uncertain prognosis? @ -No Drug Therapy requiring intensive monitoring for toxicity (Heparin, Nitro, Insulin, Cardizem)? @ -No Were any procedures done? @ -No Diagnosis/symptom? Acute, or Chronic, or Acute on Chronic? Uncomplicated (without systemic symptoms) or Complicated (systemic symptoms)? @ -1. Evaluation for abnormal EKG Side effects of treatment? @ -No Exacerbation, Progression, or Severe Exacerbation? @ -No Poses a threat to life or bodily function? How? (Chest pain, [place], [place], pneumonia, PE, COPD, DKA, ARF, appy, cholecystitis, CVA, Diverticulitis, Homicidal, Suicidal, threat to staff... and all critical care pts) @ -No Disposition Clinical Impression: Abnormal EKG Disposition: HOME SELF-CARE Condition: Good Instructions (If sedation given, give patient instructions): Hypertension (ED) Is patient prescribed a controlled substance at d/c from ED?: No Referrals: Tracie Beach MD [Primary Care Provider] - 1-2 days Time of Disposition: 17:59
--- NOTE | 2022-06-30 18:19 | ED ---
General Adult HPI - General Chief complaint: Skin/Abscess/Foreign Body Stated complaint: lt & rt feet swelling Time Seen by Provider: 06/30/22 17:58 Source: patient Mode of arrival: wheelchair Limitations: no limitations - History of Present Illness Initial comments: Dictation was produced using [employer] [employer] dictation software. please excuse any grammatical, word or spelling errors. Chief Complaint: 36-year-old female presents emergency Department with left ankle swelling, Pain and shortness of breath History of Present Illness: Patient is 28-year-old female she has past medical history of multiple sclerosis, infections. She is status post bilateral fifth toe amputations. Patient noticed some swelling around her left ankle. She has a PICC line procedures antibiotics to treat wound infection. States that she is instructed to come to the emergency department for swelling around the left ankle. Swelling has been ongoing for last couple days associated with pain. She said the pitcher to her home health care visiting nurse who then reported that picture to surgeon who performed the amputation, Dr. Sainz patient is told to come to the ER. En route to the emergency department here she knows that her left leg seemed more swollen than the right. States that she has Pain and also shortness of breath. The ROS documented in this emergency department record has been reviewed and confirmed by me. Those systems with pertinent positive or negative responses have been documented in the HPI. All other systems are other negative and/or noncontributory. - Related Data Home Medications Medication Instructions Recorded Confirmed Azithromycin [Zithromax Z-pack (6 See Taper PO DAILY 04/22/20 04/22/20 tabs)] Insulin Detemir (Levemir) [Levemir] 35 unit SQ DAILY 04/22/20 04/22/20 Loratadine [Claritin] 10 mg PO DAILY 04/22/20 04/22/20 lisinopriL [Zestril] 5 mg PO DAILY 04/22/20 04/22/20 medroxyPROGESTERone [Depo-Provera] 150 mg IM Q90D 04/22/20 04/22/20 Previous Rx's Medication Instructions Recorded Amoxicillin/Potassium Clav 1 tab PO Q12HR #20 tab 04/22/20 [Augmentin 875-125 Tablet] Fluconazole [Diflucan] 150 mg PO DAILY #2 tab 04/22/20 Nystatin 100,000Unit/gm Cream 1 applic TOPICAL TID #20 gm 04/22/20 [Mycostatin Cream] Allergies Allergy/AdvReac Type Severity Reaction Status Date / Time vancomycin Allergy kidney Verified 06/30/22 17:57 problems Review of Systems ROS Statement: Those systems with pertinent positive or pertinent negative responses have been documented in the HPI. ROS Other: All systems not noted in ROS Statement are negative. Past Medical History Past Medical History: Asthma, Cancer, Diabetes Mellitus, Hyperlipidemia, Hypertension, Osteoarthritis (OA) Additional Past Medical History / Comment(s): Migraines. HX OVARIAN CA. Abdominal Pain- vomiting and diarrhea, ON/OFF. RECENT BLOOD IN URINE X2. History of Any Multi-Drug Resistant Organisms: None Reported Past Surgical History: Section, Orthopedic Surgery Additional Past Surgical History / Comment(s): Rt Oophorectomy, recent EGD,colonoscopy, toe amputation Past Anesthesia/Blood Transfusion Reactions: No Reported Reaction Past Psychological History: No Psychological Hx Reported Smoking Status: Never smoker Past Alcohol Use History: None Reported Past Drug Use History: Marijuana - Past Family History Mother Family Medical History: No Reported History General Exam - General Exam Comments Initial Comments: PHYSICAL EXAM: General Impression: Alert and oriented x3, not in acute distress HEENT: Normocephalic atraumatic, extra-ocular movements intact, pupils equal and reactive to light bilaterally, mucous membranes moist. Cardiovascular: Heart regular rate and rhythm Chest: Able to complete full sentences, no retractions, no tachypnea Abdomen: abdomen soft, non-tender, non-distended, no organomegaly Musculoskeletal: Pulses present and equal in all extremities, no peripheral edema Motor: no focal deficits noted Neurological: CN II-XII grossly intact, no focal motor or sensory deficits noted Skin: Intact with no visualized rashes Psych: Normal affect and mood Left lower extremity: Palpatory tenderness to the proximal calf. No tenderness to the popliteal area. She is a chronic wound with no active drainage but surrounding erythema to the left lateral foot Limitations: no limitations Course Vital Signs 06/30/22 17:52 Temperature 98.4 F Pulse Rate 88 Respiratory 20 Rate Blood Pressure 130/83 O2 Sat by Pulse 99 Oximetry Medical Decision Making - Medical Decision Making Was pt. sent in by a medical professional or institution (, PA, WELDING MACHINE OPERATOR ELECTRON BEAM, urgent care, hospital, or correction...) When possible be specific @ -Instructed to come to the emergency department by wound care physician Did you speak to anyone other than the patient for history (EMS, parent, family, police, friend...)? What history was obtained from this source @ -No Did you review nursing and triage notes (agree or disagree)? Why? @ -I reviewed and agree with nursing and triage notes Were old charts reviewed (outside hosp., previous admission, EMS record, old EKG, old radiological studies, urgent care reports/EKG's, correction records)? Report findings @ -Previous charting was reviewed stating that patient has history of chronic wounds Differential Diagnosis (chest pain, altered mental status, abdominal pain women, abdominal pain men, vaginal bleeding, musculoskeletal, weakness, fever, dyspnea, syncope, headache, dizziness, GI bleed, back pain, seizure, CVA, palpatations, mental health)? @ -Cellulitis, gangrene, osteomyelitis EKG interpreted by me (3pts min.). @ -None done X-rays interpreted by me (1pt min.). @ -Osteomyelitis of the metatarsals of the foot CT interpreted by me (1pt min.). @ -CT angios negative for pulmonary embolism U/S interpreted by me (1pt. min.). @ -Venous duplex of the left extremity shows no DVT What testing was considered but not performed or refused? (CT, X-rays, U/S, labs)? Why? @ -None What meds were considered but not given or refused? Why? @ -None Did you discuss the management of the patient with other professionals (professionals i.e. , PA, WELDING MACHINE OPERATOR ELECTRON BEAM, lab, RT, psych nurse, social media manager, buck swamper, teacher, audit officer, case management social worker)? Give summary @ -Discussed with hospitalist for admission Was smoking cessation discussed for >3mins.? @ -No Was critical care preformed (if so, how long)? @ -No Were there social determinants of health that impacted care today? How? (Homelessness, low income, unemployed, alcoholism, drug addiction, transportation, low edu. Level, literacy, decrease access to med. care, [facility]ci, rehab)? @ -No Was there de-escalation of care discussed even if they declined (Discuss DNR or withdrawal of care, Hospice)? DNR status @ -No What co-morbidities impacted this encounter? (DM, HTN, Smoking, COPD, CAD, Cancer, CVA, ARF, Chemo, Hep., AIDS, mental health diagnosis, sleep apnea, morbid obesity)? @ -Wounds, diabetes Was patient admitted / discharged? Hospital course, mention meds given and route, prescriptions, significant lab abnormalities, going to OR and other pertinent info. @ --36 year-old female presents with worsening wound to the left lateral foot. X-rays suggest osteomyelitis. She does appear to be on appropriate antibiotics at home however she has worsening findings. Disposition options were discussed with patient. She is agreeable for admission. Patient may be a candidate for w ound debridement. Given worsening of symptoms clinically patient is failing outpatient treatment. Undiagnosed new problem with uncertain prognosis? @ -No Drug Therapy requiring intensive monitoring for toxicity (Heparin, Nitro, Insulin, Cardizem)? @ -No Were any procedures done? @ -No Diagnosis/symptom? Acute, or Chronic, or Acute on Chronic? Uncomplicated (without systemic symptoms) or Complicated (systemic symptoms)? @ -1. Acute on chronic osteomyelitis Side effects of treatment? @ -No Exacerbation, Progression, or Severe Exacerbation? @ -No Poses a threat to life or bodily function? How? (Chest pain, [place], [place], pneumonia, PE, COPD, DKA, ARF, appy, cholecystitis, CVA, Diverticulitis, Homicidal, Suicidal, threat to staff... and all critical care pts) @ -yes - Lab Data Result diagrams: 06/30/22 18:29 06/30/22 18:29 Lab Results 06/30/22 06/30/22 06/30/22 Range/Units 18:29 18:29 18:29 WBC 6.2 (3.8-10.6) k/uL RBC 3.55 L (3.80-5.40) m/uL Hgb 9.2 L (11.4-16.0) gm/dL Hct 28.2 L (34.0-46.0) % MCV 79.7 L (80.0-100.0) fL MCH 25.8 (25.0-35.0) pg MCHC 32.4 (31.0-37.0) g/dL RDW 14.9 (11.5-15.5) % Plt Count 412 (150-450) k/uL MPV 7.2 Neutrophils % 65 % Lymphocytes % 26 % Monocytes % 3 % Eosinophils % 4 % Basophils % 0 % Neutrophils # 4.0 (1.3-7.7) k/uL Lymphocytes # 1.6 (1.0-4.8) k/uL Monocytes # 0.2 (0-1.0) k/uL Eosinophils # 0.2 (0-0.7) k/uL Basophils # 0.0 (0-0.2) k/uL ESR 127 H (0-20) mm/hr D-Dimer 3.11 H (<0.60) mg/L FEU Sodium 136 L (137-145) mmol/L Potassium 4.2 (3.5-5.1) mmol/L Chloride 106 (98-107) mmol/L Carbon Dioxide 22 (22-30) mmol/L Anion Gap 8 mmol/L BUN 15 (7-17) mg/dL Creatinine 0.51 L (0.52-1.04) mg/dL Est GFR (CKD-EPI)AfAm >90 (>60 ml/min/1.73 sqM) Est GFR (CKD-EPI)NonAf >90 (>60 ml/min/1.73 sqM) Glucose 204 H (74-99) mg/dL Plasma Lactic Acid Harris (0.7-2.0) mmol/L Calcium 9.0 (8.4-10.2) mg/dL Magnesium 2.2 (1.6-2.3) mg/dL Total Bilirubin 0.2 (0.2-1.3) mg/dL AST 16 (14-36) U/L ALT 11 (4-34) U/L Alkaline Phosphatase 125 (38-126) U/L C-Reactive Protein 6.4 H (<1.0) mg/dL Total Protein 7.3 (6.3-8.2) g/dL Albumin 3.2 L (3.5-5.0) g/dL 06/30/22 Range/Units 18:29 WBC (3.8-10.6) k/uL RBC (3.80-5.40) m/uL Hgb (11.4-16.0) gm/dL Hct (34.0-46.0) % MCV (80.0-100.0) fL MCH (25.0-35.0) pg MCHC (31.0-37.0) g/dL RDW (11.5-15.5) % Plt Count (150-450) k/uL MPV Neutrophils % % Lymphocytes % % Monocytes % % Eosinophils % % Basophils % % Neutrophils # (1.3-7.7) k/uL Lymphocytes # (1.0-4.8) k/uL Monocytes # (0-1.0) k/uL Eosinophils # (0-0.7) k/uL Basophils # (0-0.2) k/uL ESR (0-20) mm/hr D-Dimer (<0.60) mg/L FEU Sodium (137-145) mmol/L Potassium (3.5-5.1) mmol/L Chloride (98-107) mmol/L Carbon Dioxide (22-30) mmol/L Anion Gap mmol/L BUN (7-17) mg/dL Creatinine (0.52-1.04) mg/dL Est GFR (CKD-EPI)AfAm (>60 ml/min/1.73 sqM) Est GFR (CKD-EPI)NonAf (>60 ml/min/1.73 sqM) Glucose (74-99) mg/dL Plasma Lactic Acid Harris 0.5 L (0.7-2.0) mmol/L Calcium (8.4-10.2) mg/dL Magnesium (1.6-2.3) mg/dL Total Bilirubin (0.2-1.3) mg/dL AST (14-36) U/L ALT (4-34) U/L Alkaline Phosphatase (38-126) U/L C-Reactive Protein (<1.0) mg/dL Total Protein (6.3-8.2) g/dL Albumin (3.5-5.0) g/dL Disposition Clinical Impression: Osteomyelitis Disposition: ADMITTED IP TO THIS HOSP Condition: Serious Referrals: Tracie Beach MD [Primary Care Provider] - 1-2 days Decision Time: 21:26
--- NOTE | 2022-06-30 18:29 | XR ---
EXAMINATION TYPE: XR ankle limited LT DATE OF EXAM: 06/30/2022 COMPARISON: NONE HISTORY: Pain TECHNIQUE: 2 views of the left ankle are submitted for evaluation. FINDINGS: There is soft tissue swelling noted about the midfoot extending into the ankle. There is a well-corticated ossific density at the tip of the lateral malleolus which likely reflects an unfused ossicle or remote avulsion fracture. There appears to be soft tissue ulceration. At the base of the t hird, fourth and fifth metatarsals there appears to be bony destructive process suspicious for osteom yelitis is also periosteal reaction. Correlate clinically. IMPRESSION: 1. Correlate for underlying osteomyelitis as noted above.
[2022-06-30 18:44] LABS: Basophils % (A) 0 %; Eosinophils # (A) 0.2 k/uL (0-0.7); Eosinophils % (A) 4 %; HCT 28.2 % (34.0-46.0); HGB 9.2 gm/dL (11.4-16.0); Lymphocytes # (A) 1.6 k/uL (1.0-4.8); Lymphocytes % (A) 26 %; MCH 25.8 pg (25.0-35.0); MCHC 32.4 g/dL (31.0-37.0); MCV 79.7 fL (80.0-100.0); Mean Platelet Volume 7.2; Monocytes # (A) 0.2 k/uL (0-1.0); Monocytes % (A) 3 %; Neutrophils % (A) 65 %; Platelet Count 412 k/uL (150-450); RBC 3.55 m/uL (3.80-5.40); RDW 14.9 % (11.5-15.5); WBC 6.2 k/uL (3.8-10.6)
[2022-06-30 18:59] LABS: ALT 11 U/L (4-34); AST 16 U/L (14-36); African American GFR (CKD) >90 (>60 ml/min/1.73 sqM); Albumin 3.2 g/dL (3.5-5.0); Alkaline Phosphatase 125 U/L (38-126); Anion Gap 8 mmol/L; Blood Urea Nitrogen 15 mg/dL (7-17); Carbon Dioxide 22 mmol/L (22-30); Chloride 106 mmol/L (98-107); Glucose 204 mg/dL (74-99); Magnesium 2.2 mg/dL (1.6-2.3); Non-African American GFR(CKD) >90 (>60 ml/min/1.73 sqM); Potassium 4.2 mmol/L (3.5-5.1); Sodium 136 mmol/L (137-145); Total Bilirubin 0.2 mg/dL (0.2-1.3); Total Protein 7.3 g/dL (6.3-8.2)
--- NOTE | 2022-06-30 19:07 | US ---
EXAMINATION TYPE: US venous doppler duplex LE LT DATE OF EXAM: 06/30/2022 6:35 PM COMPARISON: 04/22/20 CLINICAL INDICATION: Female, 36 years old with history of suspect DVT; Left foot into calf swelling SIDE PERFORMED: Left TECHNIQUE: The lower extremity deep venous system is examined utilizing real time linear array sonog garret with graded compression, doppler sonography and color-flow sonography. VESSELS IMAGED: Common Femoral Vein Deep Femoral Vein Greater Saphenous Vein * Femoral Vein Popliteal Vein Small Saphenous Vein * Proximal Calf Veins (* superficial vessels) Left Leg: Negative for DVT IMPRESSION: No evidence for DVT at this time.
[2022-06-30 19:37] LABS: C Reactive Protein 6.4 mg/dL (<1.0)
[2022-06-30 20:42] LABS: Erythrocyte Sedimentation Rate 127 mm/hr (0-20)
--- NOTE | 2022-06-30 20:51 | CT ---
EXAMINATION TYPE: CT angio chest DATE OF EXAM: 06/30/2022 COMPARISON: None HISTORY: R/O PE CT DLP: 942.8 mGycm CONTRAST: CT chest with contrast and 3D reconstruction with MIP imaging is performed with IV Contrast, patient injected with 100cc mL of Isovue 370. Contrast-enhanced CT of the chest was performed through the course of the pulmonary arteries with mireille g and mediastinal window settings submitted. 3D reconstruction with MIP imaging was also performed. PULMONARY ARTERIES: The pulmonary arteries and their major tributaries are patent. I do not see gely dence for sizable filling defect to suggest pulmonary embolic process. LUNGS: The lungs are clear and free of infiltrate. No evidence for atelectasis. No pulmonary nodule or mass is detected. No pleural effusion. MEDIASTINUM: Thoracic aorta is of normal caliber,however, evaluation is limited given timing of the contrast bolus. If there is concern for thoracic aortic pathology consider BARBARA. Correlate clinicall y . The heart is not enlarged. No evidence for mediastinal mass. No mediastinal lymph nodes greater than 1cm. HILAR STRUCTURES: No evidence for mass. No hilar lymph nodes greater than 1 cm. UPPER ABDOMEN: No significant abnormality is seen. IMPRESSION: 1. No evidence for Pulmonary embolism at this time.
[2022-06-30] MEDS ORDERED: NALOXONE 0.4 MG/ML 1 ML VIAL IV PRN (21:21)
[2022-06-30] MEDS ORDERED: ONDANSETRON ODT 4 MG TAB PO PRN (23:04)
[2022-06-30] MEDS ORDERED: DEXTROSE 50% SYRINGE 50 ML IVP PRN ×2 (23:05)
[2022-06-30] MEDS ORDERED: ACETAMINOPHEN TAB 325 MG TAB PO PRN (23:06)
[2022-06-30] MEDS: IBUPROFEN 600 MG TAB PO PRN (23:38)
[2022-07-01] MEDS: SODIUM CHLORIDE 0.9% 1,000 ML IV SCH ×2 (00:27→23:23)
[2022-07-01] MEDS: DAPTOmycin 500 MG in SODIUM CHLORIDE 0.9% 50 ML IVPB SCH (00:28)
[2022-07-01] MEDS: INSULIN DETEMIR (LEVEMIR) 100 UNIT/ML SYR SQ SCH ×2 (00:29→21:17)
[2022-07-01] MEDS: HYDROcodone/APAP 5-325MG 1 EACH TAB PO PRN ×4 (00:47→21:25)
[2022-07-01 00:56] LABS: Glucose,Whole Blood 146 mg/dL (70-110)
[2022-07-01] MEDS: CEFEPIME 2 GM in SODIUM CHLORIDE 0.9% 100 ML IVPB SCH ×3 (01:25→16:44)
[2022-07-01 07:30] LABS: Glucose,Whole Blood 237 mg/dL (70-110)
[2022-07-01] MEDS: INSULIN ASPART (NovoLOG) 100 UNIT/ML VIAL SQ SCH ×7 (08:12→21:24)
[2022-07-01] MEDS: SENNOSIDES 8.6 MG TAB PO SCH (08:13)
[2022-07-01] MEDS: lisinopriL 5 MG TAB PO SCH (08:13)
[2022-07-01 08:23] LABS: Basophils % (A) 0 %; Eosinophils # (A) 0.3 k/uL (0-0.7); Eosinophils % (A) 5 %; HCT 30.2 % (34.0-46.0); HGB 9.4 gm/dL (11.4-16.0); Hypochromasia Slight; Lymphocytes # (A) 1.5 k/uL (1.0-4.8); Lymphocytes % (A) 26 %; MCH 25.6 pg (25.0-35.0); MCHC 31.3 g/dL (31.0-37.0); MCV 81.8 fL (80.0-100.0); Mean Platelet Volume 7.3; Monocytes # (A) 0.3 k/uL (0-1.0); Monocytes % (A) 4 %; Neutrophils # (A) 3.7 k/uL (1.3-7.7); Neutrophils % (A) 64 %; Platelet Count 446 k/uL (150-450); RBC 3.69 m/uL (3.80-5.40); RDW 14.8 % (11.5-15.5); WBC 5.8 k/uL (3.8-10.6)
[2022-07-01 08:35] LABS: African American GFR (CKD) >90 (>60 ml/min/1.73 sqM); Anion Gap 7 mmol/L; Blood Urea Nitrogen 14 mg/dL (7-17); Calcium 9.3 mg/dL (8.4-10.2); Carbon Dioxide 24 mmol/L (22-30); Chloride 108 mmol/L (98-107); Glucose 171 mg/dL (74-99); Non-African American GFR(CKD) >90 (>60 ml/min/1.73 sqM); Potassium 4.1 mmol/L (3.5-5.1); Sodium 139 mmol/L (137-145)
[2022-07-01] MEDS ORDERED: ATORVASTATIN 20 MG TAB PO SCH (09:00)
[2022-07-01 09:18] LABS: C Reactive Protein 4.9 mg/dL (<1.0)
[2022-07-01 09:56] LABS: Erythrocyte Sedimentation Rate 120 mm/hr (0-20)
[2022-07-01 11:39] LABS: Glucose,Whole Blood 105 mg/dL (70-110)
--- NOTE | 2022-07-01 17:04 | P.CONS ---
History of Present Illness - Reason for Consult Consult date: 07/01/22 - History of Present Illness Patient is a 36-year-old female with a past medical history significant for diabetes mellitus, patient did have a history of diabetic foot infection requiring amputation of bilateral fifth toe and this patient apparently recently diagnosed with osteomyelitis when she was admitted at [facility] apparently the patient has been on IV antibiotic in the outpatient setting in the form of daptomycin and another antibiotic with the patient was not sure patient not clear about the culture and did mention she did have a MRI of the foot before she was discharged, patient now presenting to [facility] ER for evaluation of worsening swelling and redness of the left lower extremity and to the ankle area that apparently has been getting worse for the last few days patient complaining of pain which is mostly dull aching to sharp 6-7 out of 10 with no radiation and did have minimal drainage especially left ankle wound area patient was evaluated by the ER ER physician on presentation to the hospital the patient was afebrile and no fever has been recorded subsequently patient did have a normal white count did have elevated sed rate of 127 CRP was elevated 6.4 kidney function has been normal patient did have a x-ray of the ankle which did show soft tissue swelling about the midfoot extending into the ankle well-corticated density at the tip of the lateral malle olus which could likely be present avulsion fracture and there was a bony destruction suspicious for osteomyelitis infectious he was consulted for further management of antibiotic therapy, patient was started on cefepime and daptomycin pending evaluation this morning local cultures obtained which are currently pending Past Medical History Past Medical History: Asthma, Cancer, Diabetes Mellitus, Hyperlipidemia, Hypertension, Osteoarthritis (OA) Additional Past Medical History / Comment(s): Migraines. HX OVARIAN CA. Abdominal Pain- vomiting and diarrhea, ON/OFF. RECENT BLOOD IN URINE X2.; umbilical hernia History of Any Multi-Drug Resistant Organisms: None Reported Past Surgical History: Section, Cholecystectomy, Orthopedic Surgery Additional Past Surgical History / Comment(s): Rt Oophorectomy, EGD, colonoscopy, toes amputated (second, fifth on left; fifth toe on right) Past Anesthesia/Blood Transfusion Reactions: No Reported Reaction Past Psychological History: No Psychological Hx Reported Smoking Status: Never smoker Past Alcohol Use History: None Reported Additional Past Alcohol Use History / Comment(s): quit smoking 2000, only smoked for a year Past Drug Use History: Marijuana - Past Family History Mother Family Medical History: No Reported History Medications and Allergies Home Medications Medication Instructions Recorded Confirmed Type lisinopriL [Zestril] 5 mg PO DAILY 04/22/20 06/30/22 History medroxyPROGESTERone [Depo-Provera] 150 mg IM Q90D 04/22/20 06/30/22 History Atorvastatin [Lipitor] 20 mg PO DAILY 06/30/22 06/30/22 History Dulaglutide [Trulicity] 0.75 mg SQ MO 06/30/22 06/30/22 History Ibuprofen [Motrin] 600 mg PO Q8HR PRN 06/30/22 06/30/22 History Insulin Aspart [NovoLOG Flexpen] 10 units SQ AC-TID 06/30/22 06/30/22 History Insulin Glargine,Hum.rec.anlog 65 units SQ HS 06/30/22 06/30/22 History [Lantus Solostar Pen] Ondansetron Odt [Zofran Odt] 4 mg PO Q8HR PRN 06/30/22 06/30/22 History Sennosides [Senokot] 8.6 mg PO DAILY 06/30/22 06/30/22 History metroNIDAZOLE 500 mg PO TID 06/30/22 06/30/22 History Allergies Allergy/AdvReac Type Severity Reaction Status Date / Time vancomycin Allergy kidney Verified 06/30/22 21:34 problems Physical Exam Vitals: Vital Signs Temp Pulse Pulse Resp BP BP Pulse Ox 07/01/22 07:42 81 20 122/79 98 07/01/22 02:00 97.9 F 87 16 127/94 96 06/30/22 22:51 98.0 F 95 20 143/81 99 06/30/22 17:52 98.4 F 88 20 130/83 99 Intake and Output 06/30/22 07/01/22 07/01/22 22:59 06:59 14:59 Other: # Voids 1 # Bowel Movements 0 Weight 112.491 kg Results CBC & Chem 7: 07/01/22 07:56 07/01/22 07:56 Labs: Abnormal Lab Results - Last 24 Hours (Table) 06/30/22 06/30/22 06/30/22 Range/Units 18:29 18:29 18:29 RBC 3.55 L (3.80-5.40) m/uL Hgb 9.2 L (11.4-16.0) gm/dL Hct 28.2 L (34.0-46.0) % MCV 79.7 L (80.0-100.0) fL ESR 127 H (0-20) mm/hr D-Dimer 3.11 H (<0.60) mg/L FEU Sodium 136 L (137-145) mmol/L Chloride (98-107) mmol/L Creatinine 0.51 L (0.52-1.04) mg/dL Glucose 204 H (74-99) mg/dL POC Glucose (mg/dL) (70-110) mg/dL Plasma Lactic Acid Harris (0.7-2.0) mmol/L C-Reactive Protein 6.4 H (<1.0) mg/dL Albumin 3.2 L (3.5-5.0) g/dL 06/30/22 07/01/22 07/01/22 Range/Units 18:29 00:36 07:09 RBC (3.80-5.40) m/uL Hgb (11.4-16.0) gm/dL Hct (34.0-46.0) % MCV (80.0-100.0) fL ESR (0-20) mm/hr D-Dimer (<0.60) mg/L FEU Sodium (137-145) mmol/L Chloride (98-107) mmol/L Creatinine (0.52-1.04) mg/dL Glucose (74-99) mg/dL POC Glucose (mg/dL) 146 H 237 H (70-110) mg/dL Plasma Lactic Acid Harris 0.5 L (0.7-2.0) mmol/L C-Reactive Protein (<1.0) mg/dL Albumin (3.5-5.0) g/dL 07/01/22 07/01/22 Range/Units 07:56 07:56 RBC 3.69 L (3.80-5.40) m/uL Hgb 9.4 L (11.4-16.0) gm/dL Hct 30.2 L (34.0-46.0) % MCV (80.0-100.0) fL ESR (0-20) mm/hr D-Dimer (<0.60) mg/L FEU Sodium (137-145) mmol/L Chloride 108 H (98-107) mmol/L Creatinine (0.52-1.04) mg/dL Glucose 171 H (74-99) mg/dL POC Glucose (mg/dL) (70-110) mg/dL Plasma Lactic Acid Harris (0.7-2.0) mmol/L C-Reactive Protein (<1.0) mg/dL Albumin (3.5-5.0) g/dL Assessment and Plan Plan: 1patient with a history of diabetic foot infection and osteomyelitis in this patient who did have a left fifth amputation she did have a nonhealing wound at her left fifth toe amputation site with associated swelling and redness have some abnormality noticed at the left ankle area with the patient complaining of more swelling ulceration and drainage has been cultured and recently did have an MRI at [facility] as well as culture 2-local culture has been obtained await vascular surgery evaluation no need for any further debridement and deep culture 3-try to obtain MRI from the [facility] 4-patient to continue daptomycin and cefepime while waiting for the culture to finalize and work-up to be completed We will follow on clinical condition and cultures to further adjust medication if needed Thank you for this consultation we will follow the patient along with you Time with Patient: Greater than 30
[2022-07-01 17:12] LABS: Glucose,Whole Blood 149 mg/dL (70-110)
[2022-07-01 19:43] VITALS: RESP 18
[2022-07-01 20:20] LABS: Glucose,Whole Blood 239 mg/dL (70-110)
[2022-07-02] MEDS: DAPTOmycin 500 MG in SODIUM CHLORIDE 0.9% 50 ML IVPB SCH ×2 (00:05→23:28)
[2022-07-02] MEDS: CEFEPIME 2 GM in SODIUM CHLORIDE 0.9% 100 ML IVPB SCH ×4 (01:12→23:58)
[2022-07-02 07:39] LABS: Glucose,Whole Blood 109 mg/dL (70-110)
[2022-07-02] MEDS: INSULIN ASPART (NovoLOG) 100 UNIT/ML VIAL SQ SCH ×7 (08:12→21:14)
[2022-07-02] MEDS: SENNOSIDES 8.6 MG TAB PO SCH (08:17)
[2022-07-02] MEDS: lisinopriL 5 MG TAB PO SCH (08:17)
[2022-07-02] MEDS: HYDROcodone/APAP 5-325MG 1 EACH TAB PO PRN ×2 (08:19→19:49)
--- NOTE | 2022-07-02 09:45 | P.GSCN ---
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 She is an IV antibiotic and local wound care. Patient came to the ER concern about the left ankle swelling and some mild redness she is been admitted had a complete workup patient is an IV antibiotic right now the w ound on the lateral aspect has some swelling but no discharge or redness noted at this point patient has history of osteo-mellitus under care of infectious disease for IV antibiotic and local wound care Neck is supple no bruit appreciated Chest is clear good and both lungs Abdomen soft nontender Vascular femorals are 1+ DP 1+ wound on the lateral aspect of the leg left foot is dry no discharge or or redness noted right foot lateral aspect wound is granulating Plan is patient is on IV IV antibiotic and local wound care patient can go home on IV antibiotic and local wound care we've been using medihoney gel to the left foot and is excess silver a right foot patient getting an antibiotic for infectious disease I can follow-up in the wound clinic in 2 weeks patient can be discharged from surgical point of view at this point Past Medical History Past Medical History: Asthma, Cancer, Diabetes Mellitus, Hyperlipidemia, Hypertension, Osteoarthritis (OA) Additional Past Medical History / Comment(s): Migraines. HX OVARIAN CA. Abdominal Pain- vomiting and diarrhea, ON/OFF. RECENT BLOOD IN URINE X2.; umbilical hernia History of Any Multi-Drug Resistant Organisms: None Reported Past Surgical History: Section, Cholecystectomy, Orthopedic Surgery Additional Past Surgical History / Comment(s): Rt Oophorectomy, EGD, colonoscopy, toes amputated (second, fifth on left; fifth toe on right) Past Anesthesia/Blood Transfusion Reactions: No Reported Reaction Past Psychological History: No Psychological Hx Reported Smoking Status: Never smoker Past Alcohol Use History: None Reported Additional Past Alcohol Use History / Comment(s): quit smoking 2000, only smoked for a year Past Drug Use History: Marijuana - Past Family History Mother Family Medical History: No Reported History Medications and Allergies Home Medications Medication Instructions Recorded Confirmed Type lisinopriL [Zestril] 5 mg PO DAILY 04/22/20 06/30/22 History medroxyPROGESTERone [Depo-Provera] 150 mg IM Q90D 04/22/20 06/30/22 History Atorvastatin [Lipitor] 20 mg PO DAILY 06/30/22 06/30/22 History Dulaglutide [Trulicity] 0.75 mg SQ MO 06/30/22 06/30/22 History Ibuprofen [Motrin] 600 mg PO Q8HR PRN 06/30/22 06/30/22 History Insulin Aspart [NovoLOG Flexpen] 10 units SQ AC-TID 06/30/22 06/30/22 History Insulin Glargine,Hum.rec.anlog 65 units SQ HS 06/30/22 06/30/22 History [Lantus Solostar Pen] Ondansetron Odt [Zofran Odt] 4 mg PO Q8HR PRN 06/30/22 06/30/22 History Sennosides [Senokot] 8.6 mg PO DAILY 06/30/22 06/30/22 History metroNIDAZOLE 500 mg PO TID 06/30/22 06/30/22 History Allergies Allergy/AdvReac Type Severity Reaction Status Date / Time vancomycin Allergy kidney Verified 06/30/22 21:34 problems Surgical - Exam Vital Signs Temp Pulse Resp BP Pulse Ox 98.4 F 88 20 130/83 99 06/30/22 17:52 06/30/22 17:52 06/30/22 17:52 06/30/22 17:52 06/30/22 17:52 Results - Labs 07/01/22 07:56 07/01/22 07:56 Abnormal Lab Results - Last 24 Hours (Table) 07/01/22 07/01/22 07/01/22 Range/Units 07:56 07:56 17:10 ESR 120 H (0-20) mm/hr POC Glucose (mg/dL) 149 H (70-110) mg/dL Hemoglobin A1c 12.5 H (0.0-6.0) % 07/01/22 Range/Units 20:18 ESR (0-20) mm/hr POC Glucose (mg/dL) 239 H (70-110) mg/dL Hemoglobin A1c (0.0-6.0) % Microbiology - Last 24 Hours (Table) 07/01/22 02:54 Gram Stain - Preliminary Foot - Right Wound Culture - Preliminary 07/01/22 02:54 Anaerobic Culture - Preliminary Foot - Right Diabetes panel 04/22/23 Range/Units 07:56 Hemoglobin A1c 12.5 H (0.0-6.0) %
--- NOTE | 2022-07-02 10:40 | P.HPIM ---
History of Present Illness H&P Date: 07/01/22 Chief Complaint: Foot infection Patient is a 36-year-old female with a known history of diabetes type 2 insulin- dependent, hypertension, hyperlipidemia, osteoarthritis and history of diabetic foot infection currently on follow-up with wound care clinic and migraine headaches presents to ER with complaints of left ankle swelling and pain and shortness of breath. Patient does have prior history of bilateral fifth toe amputations. Patient is on follow with wound care clinic and also on antibiotics via PICC line. Patient was advised to come to ER due to worsening for swelling for past 2-3 days. Patient has home visiting nurse who sent the pitcher to her surgeon and was told to come to ER for possible debridement. Patient otherwise denied any complaints of fever or chills. No nausea vomiting or abdominal pain or diarrhea. No cough or sputum production. X-ray of the ankle showed correlate for underlying osteomyelitis. CTA chest showed no evidence of PE. Laboratory showed WBC 6.2 hemoglobin 9.2 and platelets 412 and d-dimer level III.11 Sodium 136 potassium 4.2 chloride 106 bicarb is 22 BUN 15 and creatinine 0.5 and blood sugar is 204 on admission, all within 3.2 and CRP 6.4. Liver enzymes are not elevated. Pro- calcitonin level is 0.5. Review of Systems Constitutional: Patient denies any fever or chills . No generalized weakness or weight loss. Abdomen: Patient denied nausea vomiting and diarrhea and abdominal pain. Cardiovascular: Patient denies any chest pain or short of breath no palpitations. Respiratory: patient denied any cough is from production. No shortness of breath Neurologic: Patient denied any numbness or tingling headache. Musculoskeletal: Patient denies any complaints of joint swelling or deformity. Left ankle swelling and pain. Skin: Negative Psychiatric: Negative Endocrine: No heat or cold intolerance. No recent weight gain. Genitourinary: No dysuria or hematuria. All other 14 point ROS negative except the above Past Medical History Past Medical History: Asthma, Cancer, Diabetes Mellitus, Hyperlipidemia, Hypertension, Osteoarthritis (OA) Additional Past Medical History / Comment(s): Migraines. HX OVARIAN CA. Abdominal Pain- vomiting and diarrhea, ON/OFF. RECENT BLOOD IN URINE X2.; u mbilical hernia History of Any Multi-Drug Resistant Organisms: None Reported Past Surgical History: Section, Cholecystectomy, Orthopedic Surgery Additional Past Surgical History / Comment(s): Rt Oophorectomy, EGD, co lonoscopy, toes amputated (second, fifth on left; fifth toe on right) Past Anesthesia/Blood Transfusion Reactions: No Reported Reaction Past Psychological History: No Psychological Hx Reported Smoking Status: Never smoker Past Alcohol Use History: None Reported Additional Past Alcohol Use History / Comment(s): quit smoking 2000, only smoked for a year Past Drug Use History: Marijuana - Past Family History Mother Family Medical History: No Reported History Medications and Allergies Home Medications Medication Instructions Recorded Confirmed Type lisinopriL [Zestril] 5 mg PO DAILY 04/22/20 06/30/22 History medroxyPROGESTERone [Depo-Provera] 150 mg IM Q90D 04/22/20 06/30/22 History Atorvastatin [Lipitor] 20 mg PO DAILY 06/30/22 06/30/22 History Dulaglutide [Trulicity] 0.75 mg SQ MO 06/30/22 06/30/22 History Ibuprofen [Motrin] 600 mg PO Q8HR PRN 06/30/22 06/30/22 History Insulin Aspart [NovoLOG Flexpen] 10 units SQ AC-TID 06/30/22 06/30/22 History Insulin Glargine,Hum.rec.anlog 65 units SQ HS 06/30/22 06/30/22 History [Lantus Solostar Pen] Ondansetron Odt [Zofran Odt] 4 mg PO Q8HR PRN 06/30/22 06/30/22 History Sennosides [Senokot] 8.6 mg PO DAILY 06/30/22 06/30/22 History metroNIDAZOLE 500 mg PO TID 06/30/22 06/30/22 History Allergies Allergy/AdvReac Type Severity Reaction Status Date / Time vancomycin Allergy kidney Verified 06/30/22 21:34 problems Physical Exam Vitals: Vital Signs Temp Pulse Pulse Resp BP BP Pulse Ox 07/01/22 07:42 81 20 122/79 98 07/01/22 02:00 97.9 F 87 16 127/94 96 06/30/22 22:51 98.0 F 95 20 143/81 99 06/30/22 17:52 98.4 F 88 20 130/83 99 Intake and Output 06/30/22 07/01/22 07/01/22 22:59 06:59 14:59 Other: # Voids 1 # Bowel Movements 0 Weight 112.491 kg PHYSICAL EXAMINATION: Patient is lying in the bed comfortably, no acute distress, awake alert and oriented.. HEENT: Normocephalic. Neck is supple. Pupils reactive. Nostrils clear. Oral cavity is moist. Neck reveals no JVD, carotid bruits, or thyromegaly. CHEST EXAMINATION: Trachea is central. Symmetrical expansion. Lung pascual clear to auscultation and percussion. CARDIAC: Normal S1, S2 with no gallops. No murmurs ABDOMEN: Soft. Bowel sounds normal. No organomegaly. No abdominal bruits. Extremities: Minimal left ankle swelling and redness. Foot Wound is dressed.. Fifth toe amputation. No clubbing or cyanosis Neurologically awake, alert, oriented x3 with well-coordinated movements. No focal deficits noted Skin: No rash or skin lesions. Psychiatric: Coperative. Nonsuicidal Musculoskeletal: No joint swelling or deformity. Normal range of motion. Results CBC & Chem 7: 07/01/22 07:56 07/01/22 07:56 Labs: Abnormal Lab Results - Last 24 Hours (Table) 06/30/22 06/30/22 06/30/22 Range/Units 18:29 18:29 18:29 RBC 3.55 L (3.80-5.40) m/uL Hgb 9.2 L (11.4-16.0) gm/dL Hct 28.2 L (34.0-46.0) % MCV 79.7 L (80.0-100.0) fL ESR 127 H (0-20) mm/hr D-Dimer 3.11 H (<0.60) mg/L FEU Sodium 136 L (137-145) mmol/L Chloride (98-107) mmol/L Creatinine 0.51 L (0.52-1.04) mg/dL Glucose 204 H (74-99) mg/dL POC Glucose (mg/dL) (70-110) mg/dL Plasma Lactic Acid Harris (0.7-2.0) mmol/L C-Reactive Protein 6.4 H (<1.0) mg/dL Albumin 3.2 L (3.5-5.0) g/dL 06/30/22 07/01/22 07/01/22 Range/Units 18:29 00:36 07:09 RBC (3.80-5.40) m/uL Hgb (11.4-16.0) gm/dL Hct (34.0-46.0) % MCV (80.0-100.0) fL ESR (0-20) mm/hr D-Dimer (<0.60) mg/L FEU Sodium (137-145) mmol/L Chloride (98-107) mmol/L Creatinine (0.52-1.04) mg/dL Glucose (74-99) mg/dL POC Glucose (mg/dL) 146 H 237 H (70-110) mg/dL Plasma Lactic Acid Harris 0.5 L (0.7-2.0) mmol/L C-Reactive Protein (<1.0) mg/dL Albumin (3.5-5.0) g/dL 07/01/22 07/01/22 Range/Units 07:56 07:56 RBC 3.69 L (3.80-5.40) m/uL Hgb 9.4 L (11.4-16.0) gm/dL Hct 30.2 L (34.0-46.0) % MCV (80.0-100.0) fL ESR 120 H (0-20) mm/hr D-Dimer (<0.60) mg/L FEU Sodium (137-145) mmol/L Chloride 108 H (98-107) mmol/L Creatinine (0.52-1.04) mg/dL Glucose 171 H (74-99) mg/dL POC Glucose (mg/dL) (70-110) mg/dL Plasma Lactic Acid Harris (0.7-2.0) mmol/L C-Reactive Protein 4.9 H (<1.0) mg/dL Albumin (3.5-5.0) g/dL Thrombosis Risk Factor Assmnt - DVT/VTE Prophylaxis DVT/VTE Prophylaxis: Pharmacologic Prophylaxis ordered - Choose All That Apply Any of the Below Risk Factors Present?: Yes Each Factor Represents 1 point: Obesity (BMI >25), Swollen legs (current) Other Risk Factors: Yes Each Risk Factor Represents 3 Points: Family history of DVT/PE Other congenital or acquired thrombophilia - If yes, enter type in comment: No Thrombosis Risk Factor Assessment Total Risk Factor Score: 5 Thrombosis Risk Factor Assessment Level: High Risk Assessment and Plan Assessment: Left diabetic foot infection with worsening swelling and drainage. History of diabetic foot infection and osteomyelitis status post left fifth toe amputation and is currently on antibiotics with PICC line at home Hyperglycemia with uncontrolled diabetes type 2 insulin-dependent Hypertension Hyperlipidemia Osteoarthritis DVT prophylaxis with heparin subcu Plan: Patient will be continued on antibiotics daptomycin and cefepime. Continue pain management. Follow-up wound culture report. Patient will be started back on home insulin regimen and titrate dose as needed. Endovascular surgery and ID was consulted. Continue to follow closely. Time with Patient: Greater than 30
[2022-07-02 12:20] LABS: Glucose,Whole Blood 134 mg/dL (70-110)
[2022-07-02] MEDS: IBUPROFEN 600 MG TAB PO PRN (14:20)
[2022-07-02] MEDS: HEPARIN SODIUM,PORCINE/PF 5,000 UNIT/0.5 ML SYRINGE SQ SCH ×2 (15:55→23:58)
[2022-07-02 17:07] LABS: Glucose,Whole Blood 107 mg/dL (70-110)
[2022-07-02 20:06] LABS: Glucose,Whole Blood 200 mg/dL (70-110)
--- NOTE | 2022-07-02 20:47 | P.PN ---
Subjective Progress Note Date: 07/02/22 Principal diagnosis: left diabetic foot infection and osteomyelitis Patient is a 36-year-old female with a past medical history significant for diabetes mellitus, patient did have a history of diabetic foot infection requiring amputation of bilateral fifth toe and this patient apparently recently diagnosed with osteomyelitis when she was admitted at [facility] apparently the patient has been on IV antibiotic, presented to hospital with worsening swelling to the left foot and ankle area concerning for possible worsening infection. On today's evaluation that is 07/02/2022, the patient denies having any fever or chills, still complaining of pain in the left foot and ankle area though some improvement, no chest pain shortness of breath, abdominal pain or any diarrhea Objective - Vital Signs Vital signs: Vital Signs Temp 98.2 F 07/02/22 07:37 Pulse 80 07/02/22 07:37 Resp 18 07/02/22 07:37 BP 136/89 07/02/22 07:37 Pulse Ox 98 07/02/22 07:37 FiO2 Intake & Output 07/01/22 07/02/22 07/02/22 18:59 06:59 18:59 Intake Total 340 Balance 340 Intake: Intake, IV Titration 340 Amount Cefepime 2 gm In Sodium 100 Chloride 0.9% 100 ml @ 25 mls/hr IVPB Q8HR [facility]ARY Rx# :[id number] Sodium Chloride 0.9% 1, 240 000 ml @ 20 mls/hr IV . Q24H MARY Rx#:[id number] Other: Voiding Method Bedside Commode # Voids 2 # Bowel Movements 0 - Exam Middle-aged female lying in bed in no distress Left foot and ankle wounds are currently dressed no drainage of the dressing Exam completed with the help of JEWELRY BENCH MOLDER - Labs CBC & Chem 7: 07/01/22 07:56 07/01/22 07:56 Labs: Abnormal Lab Results - Last 24 Hours (Table) 07/01/22 07/01/22 07/01/22 Range/Units 07:56 07:56 07:56 RBC 3.69 L (3.80-5.40) m/uL Hgb 9.4 L (11.4-16.0) gm/dL Hct 30.2 L (34.0-46.0) % ESR 120 H (0-20) mm/hr Chloride 108 H (98-107) mmol/L Glucose 171 H (74-99) mg/dL POC Glucose (mg/dL) (70-110) mg/dL Hemoglobin A1c 12.5 H (0.0-6.0) % C-Reactive Protein 4.9 H (<1.0) mg/dL 07/01/22 07/01/22 Range/Units 17:10 20:18 RBC (3.80-5.40) m/uL Hgb (11.4-16.0) gm/dL Hct (34.0-46.0) % ESR (0-20) mm/hr Chloride (98-107) mmol/L Glucose (74-99) mg/dL POC Glucose (mg/dL) 149 H 239 H (70-110) mg/dL Hemoglobin A1c (0.0-6.0) % C-Reactive Protein (<1.0) mg/dL Microbiology - Last 24 Hours (Table) 07/01/22 02:54 Gram Stain - Preliminary Foot - Right Wound Culture - Preliminary 07/01/22 02:54 Anaerobic Culture - Preliminary Foot - Right Assessment and Plan (1) Diabetic foot infection Current Visit: Yes Status: Acute Code(s): E11.628 - TYPE 2 DIABETES MELLITUS WITH OTHER SKIN COMPLICATIONS; L08.9 - LOCAL INFECTION OF THE SKIN AND SUBCUTANEOUS TISSUE, UNSP SNOMED Code(s): 245463354 (2) Osteomyelitis Current Visit: Yes Status: Acute Code(s): M86.9 - OSTEOMYELITIS, UNSPECIFIED SNOMED Code(s): 36465148 Plan: 1patient with a history of diabetic foot infection and osteomyelitis in this patient who did have a left fifth amputation she did have a nonhealing wound at her left fifth toe amputation site with associated swelling and redness have some abnormality noticed at the left ankle area with the patient complaining of more swelling ulceration and drainage has been cultured and recently did have an MRI at [facility] as well as culture 2-local culture has been obtained await vascular surgery evaluation and need for any further debridement and deep culture 3--patient to continue daptomycin and cefepime while waiting for the culture to finalize and local wound care continue as ordered This was a tele health visit Time with Patient: Less than 30
[2022-07-02] MEDS: INSULIN DETEMIR (LEVEMIR) 100 UNIT/ML SYR SQ SCH (21:14)
[2022-07-02] MEDS: SODIUM CHLORIDE 0.9% 1,000 ML IV SCH (21:15)
[2022-07-03 07:08] LABS: Glucose,Whole Blood 123 mg/dL (70-110)
[2022-07-03] MEDS: SENNOSIDES 8.6 MG TAB PO SCH (08:27)
[2022-07-03] MEDS: lisinopriL 5 MG TAB PO SCH (08:27)
[2022-07-03] MEDS: CEFEPIME 2 GM in SODIUM CHLORIDE 0.9% 100 ML IVPB SCH ×2 (08:28→15:20)
[2022-07-03] MEDS: HEPARIN SODIUM,PORCINE/PF 5,000 UNIT/0.5 ML SYRINGE SQ SCH (08:28)
[2022-07-03] MEDS: INSULIN ASPART (NovoLOG) 100 UNIT/ML VIAL SQ SCH ×4 (08:28→12:53)
[2022-07-03] MEDS: HYDROcodone/APAP 5-325MG 1 EACH TAB PO PRN ×2 (08:43→15:20)
[2022-07-03] MEDS ORDERED: NON FORMULARY DRUG (Dulaglutide [Trulicity] 0.75 MG/0.5 ML Each) SQ SCH (09:00)
[2022-07-03 11:20] LABS: Glucose,Whole Blood 157 mg/dL (70-110)
[2022-07-03 11:25] LABS: Basophils # (A) 0.03 X 10*3/uL (0.00-0.10); Basophils % (A) 0.5 %; Eosinophils # (A) 0.34 X 10*3/uL (0.04-0.35); Eosinophils % (A) 5.4 %; HCT 31.3 % (37.2-46.3); HGB 9.6 g/dL (12.0-15.0); Immature Grans, Automated 0.3 %; Lymphocytes # (A) 1.75 X 10*3/uL (0.90-5.00); MCH 24.7 pg (27.0-32.0); MCHC 30.7 g/dL (32.0-37.0); MCV 80.7 fL (80.0-97.0); Mean Platelet Volume 9.6 fL (9.5-12.2); Monocytes # (A) 0.29 X 10*3/uL (0.20-1.00); Monocytes % (A) 4.6 %; NRBC Per 100 WBC 0 /100 WBCS (0.0-0.0); Neutrophils # (A) 3.81 X 10*3/uL (1.80-7.70); Neutrophils % (A) 61.2 %; Platelet Count 439 X 10*3/uL (140-440); RBC 3.88 X 10*6/uL (4.10-5.20); RDW 14.1 % (11.5-14.5); WBC 6.24 X 10*3/uL (4.50-10.00)
[2022-07-03 11:26] LABS: African American GFR (CKD) 138.6 (60.0-200.0); Anion Gap 11.1 mmol/L (10.00-18.00); BUN/Creat Ratio 24.17 Ratio (12.00-20.00); Blood Urea Nitrogen 13.1 mg/dL (9.0-27.0); Calcium 9.5 mg/dL (8.7-10.3); Carbon Dioxide 22.8 mmol/L (20.0-27.5); Non-African American GFR(CKD) 119.6 (60.0-200.0); Potassium 4.6 mmol/L (3.5-5.5)
--- NOTE | 2022-07-03 11:49 | P.PN ---
Subjective Progress Note Date: 07/03/22 Principal diagnosis: left diabetic foot infection and osteomyelitis Patient is a 36-year-old female with a past medical history significant for diabetes mellitus, patient did have a history of diabetic foot infection requiring amputation of bilateral fifth toe and this patient apparently recently diagnosed with osteomyelitis when she was admitted at [facility] apparently the patient has been on IV antibiotic, presented to hospital with worsening swelling to the left foot and ankle area concerning for possible worsening infection. On today's evaluation that is 07/03/2022, the patient remains to be afebrile, the patient pain in the left foot and ankle area has decreased in intensity and swelling has decreased as well no purulent drainage, no chest pain shortness of breath, no abdominal pain or any diarrhea Objective - Vital Signs Vital signs: Vital Signs Temp 98.0 F 07/03/22 07:09 Pulse 98 07/03/22 07:09 Resp 18 07/03/22 07:09 BP 138/89 07/03/22 07:09 Pulse Ox 97 07/03/22 07:09 FiO2 Intake & Output 07/02/22 07/03/22 07/03/22 18:59 06:59 18:59 Intake Total 440 360 Balance 440 360 Intake: Intake, IV Titration 440 Amount Cefepime 2 gm In Sodium 100 Chloride 0.9% 100 ml @ 25 mls/hr IVPB Q8HR MARY Rx# :[id number] DAPTOmycin 500 mg In 100 Sodium Chloride 0.9% 50 ml @ 100 mls/hr IVPB Q24H MARY Rx#:[id number] Sodium Chloride 0.9% 1, 240 000 ml @ 20 mls/hr IV . Q24H MARY Rx#:[id number] Oral 360 Other: Voiding Method Bedside Commode # Voids 1 1 - Exam GENERAL DESCRIPTION: Middle-age female lying in bed in no distress RESPIRATORY SYSTEM: Unlabored breathing , decreased breath sounds at bases HEART: S1 S2 regular rate and rhythm , ABDOMEN: Soft , no tenderness EXTREMITIES: Left foot lateral border wound with no slough tissue surrounding swelling redness improved no foul-smelling drainage - Labs CBC & Chem 7: 07/03/22 06:23 07/03/22 06:23 Labs: Abnormal Lab Results - Last 24 Hours (Table) 07/02/22 07/02/22 07/03/22 Range/Units 12:19 20:04 07:07 POC Glucose (mg/dL) 134 H 200 H 123 H (70-110) mg/dL Microbiology - Last 24 Hours (Table) 07/01/22 07:56 Blood Culture - Preliminary Blood 07/01/22 02:54 Gram Stain - Preliminary Foot - Right Wound Culture - Preliminary Assessment and Plan (1) Diabetic foot infection Current Visit: Yes Status: Acute Code(s): E11.628 - TYPE 2 DIABETES MELLITUS WITH OTHER SKIN COMPLICATIONS; L08.9 - LOCAL INFECTION OF THE SKIN AND SUBCUTANEOUS TISSUE, UNSP SNOMED Code(s): 727898916 (2) Osteomyelitis Current Visit: Yes Status: Acute Code(s): M86.9 - OSTEOMYELITIS, UNSPECIFIED SNOMED Code(s): 09575919 Plan: 1patient with a history of diabetic foot infection and osteomyelitis in this patient who did have a left fifth amputation she did have a nonhealing wound at her left fifth toe amputation site with associated swelling and redness have some abnormality noticed at the left ankle area with the patient complaining of more swelling ulceration and drainage has been cultured and recently did have an MRI at [facility] as well as culture 2-local culture has been obtained , which are so far negative patient has been evaluated by vascular surgery and recommending no debridement 3--patient seemed to have shown clinical improvement and plan to continue daptomycin at 6 mg per KG daily along with and cefepime ,, Flagyl and close out patient follow-up Time with Patient: Less than 30
[2022-07-03 12:50] VITALS: BP 139/92; PULSE 77; TEMP 97.7
[2022-07-03 13:20] VITALS: BMI 36.1
[2022-07-03] MEDS: IBUPROFEN 600 MG TAB PO PRN (13:25)
== END 2022-07-03 16:44 | disposition home health service (06) | DRG 344 ==
LOC: EC 17:47 → 5NMEDONC 21:21
PROVIDERS: ADMIT Hospitalist; ATTEND Hospitalist
DX: E11.69 Type 2 diabetes mellitus with other specified complication (principal); E78.5 Hyperlipidemia, unspecified; M19.90 Unspecified osteoarthritis, unspecified site; I10 Essential (primary) hypertension; J45.909 Unspecified asthma, uncomplicated; G43.909 Migraine, unspecified, not intractable, without status migrainosus; M86.8X7 Other osteomyelitis, ankle and foot; Z79.899 Other long term (current) drug therapy; Z79.4 Long term (current) use of insulin; Z66 Do not resuscitate; Z85.43 Personal history of malignant neoplasm of ovary; Z90.721 Acquired absence of ovaries, unilateral; Z89.422 Acquired absence of other left toe(s); Z89.421 Acquired absence of other right toe(s); Z90.49 Acquired absence of other specified parts of digestive tract; Z87.19 Personal history of other diseases of the digestive system; Z88.1 Allergy status to other antibiotic agents
CPT/HCPCS: 36415; 71275; 80048; 80053; 83036; 83605; 83735; 85025; 85379; 85652; 86140; 87070; 87075; 87205; 99285

== ENCOUNTER 2022-08-11 00:21 | Inpatient (IN) | payer OTHER ==
[2022-08-11 00:35] LABS: Glucose,Whole Blood 219 mg/dL (70-110)
[2022-08-11 02:41] LABS: Anisocytosis Slight; Basophils % (A) 0 %; Eosinophils # (A) 0.3 k/uL (0-0.7); Eosinophils % (A) 3 %; HCT 31.8 % (34.0-46.0); HGB 10.3 gm/dL (11.4-16.0); Lymphocytes # (A) 1.8 k/uL (1.0-4.8); Lymphocytes % (A) 20 %; MCH 25.3 pg (25.0-35.0); MCHC 32.2 g/dL (31.0-37.0); MCV 78.3 fL (80.0-100.0); Mean Platelet Volume 7.9; Microcytosis Slight; Monocytes # (A) 0.4 k/uL (0-1.0); Monocytes % (A) 5 %; Neutrophils # (A) 6.4 k/uL (1.3-7.7); Neutrophils % (A) 71 %; Platelet Count 393 k/uL (150-450); RBC 4.06 m/uL (3.80-5.40); RDW 16.4 % (11.5-15.5)
[2022-08-11 02:52] LABS: ALT 14 U/L (4-34); AST 18 U/L (14-36); African American GFR (CKD) >90 (>60 ml/min/1.73 sqM); Albumin 4.1 g/dL (3.5-5.0); Alkaline Phosphatase 123 U/L (38-126); Anion Gap 14 mmol/L; Blood Urea Nitrogen 27 mg/dL (7-17); C Reactive Protein 4.6 mg/dL (<1.0); Calcium 9.9 mg/dL (8.4-10.2); Carbon Dioxide 21 mmol/L (22-30); Chloride 102 mmol/L (98-107); Glucose 202 mg/dL (74-99); Non-African American GFR(CKD) >90 (>60 ml/min/1.73 sqM); Potassium 4.8 mmol/L (3.5-5.1); Sodium 137 mmol/L (137-145); Total Bilirubin 0.4 mg/dL (0.2-1.3); Total Protein 8.6 g/dL (6.3-8.2)
--- NOTE | 2022-08-11 03:47 | ED ---
General Adult HPI - General Chief complaint: Extremity Problem,Nontraumatic Stated complaint: Edema in legs Time Seen by Provider: 08/11/22 00:28 Source: EMS Mode of arrival: EMS Limitations: no limitations - History of Present Illness Initial comments: This patient is a 36-year-old woman who presents to have evaluation of her bilateral feet. The patient is having burning pain and discomfort. She states that she believes is related to diabetic foot ulcers that she has an some resulting neuropathic pain. She states that she also became concerned because the dressings that were applied to her feet had soaked through. She states that this is not normally the case for her dressings. She denied systemic symptoms, no fever or chills. The patient does receive wound care through Dr. Sainz and her infectious disease specialist . -: hour(s) Location: left, right, lower extremity Radiation: non-radiation Quality: burning Consistency: constant Improves with: none Worsens with: none Associated Symptoms: denies other symptoms Treatments Prior to Arrival: none - Related Data Home Medications Medication Instructions Recorded Confirmed medroxyPROGESTERone [Depo-Provera] 150 mg IM Q90D 04/22/20 08/11/22 Atorvastatin [Lipitor] 20 mg PO DAILY 06/30/22 08/11/22 Dulaglutide [Trulicity] 0.75 mg SQ MO 06/30/22 08/11/22 Insulin Aspart [NovoLOG Flexpen] 10 units SQ AC-TID 06/30/22 08/11/22 Insulin Glargine,Hum.rec.anlog 65 units SQ HS 06/30/22 08/11/22 [Lantus Solostar Pen] metroNIDAZOLE 500 mg PO TID 06/30/22 08/11/22 Furosemide [Lasix] 20 mg PO DAILY 08/11/22 08/11/22 Insulin Aspart [NovoLOG Flexpen] See Protocol SQ AC-TID 08/11/22 08/11/22 Loratadine [Claritin] 10 mg PO DAILY 08/11/22 08/11/22 Potassium Chloride [Klor-Con M10] 10 meq PO DAILY 08/11/22 08/11/22 metFORMIN HCL ER [Glucophage XR] 1,000 mg PO DAILY 08/11/22 08/11/22 Previous Rx's Medication Instructions Recorded Acetaminophen Tab [Tylenol] 650 mg PO Q6HR PRN tab 08/16/22 Benzocaine/Menthol Lozeng [Cepacol 1 each MUCOUS MEM Q4HR PRN #20 08/16/22 lozenge] lozenge Docusate [Colace] 100 mg PO DAILY PRN cap 08/16/22 HYDROcodone/APAP 5-325MG [[place] 1 each PO Q4HR PRN #6 tab 08/16/22 5-325] Magnesium Hydroxide [Milk of 2,400 mg PO DAILY PRN ml 08/16/22 Magnesia Concentrate] Pantoprazole [Protonix] 40 mg PO AC-BID 15 Days #30 tab 08/16/22 Simethicone Chew [Mylicon Chew] 40 mg PO QID PRN tab 08/16/22 polyethylene glycoL 3350 [Miralax] 17 gm PO DAILY #30 packet 08/16/22 Allergies Allergy/AdvReac Type Severity Reaction Status Date / Time vancomycin Allergy kidney Verified 08/11/22 08:02 problems Review of Systems ROS Statement: Those systems with pertinent positive or pertinent negative responses have been documented in the HPI. ROS Other: All systems not noted in ROS Statement are negative. Constitutional: Denies: fever, chills, weakness Respiratory: Denies: cough, dyspnea Cardiovascular: Reports: edema. Denies: chest pain Gastrointestinal: Denies: abdominal pain, vomiting, diarrhea Genitourinary: Denies: dysuria, hematuria Skin: Reports: as per HPI, lesions. Denies: rash Neurological: Denies: headache, weakness Past Medical History Past Medical History: Asthma, Cancer, Diabetes Mellitus, Hyperlipidemia, Hypertension, Osteoarthritis (OA) Additional Past Medical History / Comment(s): Migraines. HX OVARIAN CA. Abdominal Pain- vomiting and diarrhea, ON/OFF. RECENT BLOOD IN URINE X2.; umbilical hernia History of Any Multi-Drug Resistant Organisms: None Reported Past Surgical History: Section, Cholecystectomy, Orthopedic Surgery Additional Past Surgical History / Comment(s): Rt Oophorectomy, EGD, colonoscopy, toes amputated (second, fifth on left; fifth toe on right) Past Anesthesia/Blood Transfusion Reactions: No Reported Reaction Past Psychological History: No Psychological Hx Reported Smoking Status: Never smoker Past Alcohol Use History: None Reported Past Drug Use History: Marijuana - Past Family History Mother Family Medical History: No Reported History General Exam Limitations: no limitations General appearance: alert, in no apparent distress Head exam: Present: atraumatic, normocephalic Eye exam: Present: normal appearance. Absent: scleral icterus, conjunctival injection Neck exam: Present: normal inspection Respiratory exam: Present: normal lung sounds bilaterally. Absent: respiratory distress, wheezes, rales, rhonchi, stridor Cardiovascular Exam: Present: regular rate, normal rhythm, normal heart sounds. Absent: systolic murmur, diastolic murmur, rubs, gallop GI/Abdominal exam: Present: soft. Absent: distended, tenderness, guarding, rebound, rigid, mass Extremities exam: Present: normal inspection, normal capillary refill, pedal edema. Absent: calf tenderness Back exam: Present: normal inspection Neurological exam: Present: alert Skin exam: Present: warm, dry, normal color, other (Patient has approximately 2*5 cm ulcer to the lateral aspect of the right foot. There is adherent silver impregnated dressing. There is no abnormal erythema or warmth. No purulent drainage. The drainage is all dried and the dressing is adherent to the ulcer. The left foot has smaller ulcer, selina) Course Vital Signs 08/11/22 08/11/22 08/11/22 00:25 04:58 06:05 Temperature 97.9 F 97.9 F Pulse Rate 94 90 90 Respiratory 20 18 18 Rate Blood Pressure 112/87 126/89 126/89 O2 Sat by Pulse 97 97 97 Oximetry EKG Findings - EKG Results: EKG: interpreted by ERMD, sinus rhythm (94 bpm), normal axis, normal ST/T - Blocks, [place], Hypertrophy, ST Abn: QRS axis and voltage: low voltage (<0.5 MV total QRS and <1.0 MV in each precordial lead) Medical Decision Making - Medical Decision Making Patient is 36-year-old woman who maintains that she is having worsening of her foot ulcers since her PICC line had been discontinued and it therefore appears the oral medication is not working. Patient will be admitted to [facility] to see Dr. Jaimes to determine whether she needs to go back on the PICC line medications Was pt. sent in by a medical professional or institution (, PA, CABLEWAY OPERATOR, urgent care, hospital, or skilled nursing...) When possible be specific @ -[Patient was directed to ER for evaluation by her specialist Did you speak to anyone other than the patient for history (EMS, parent, family, police, friend...)? What history was obtained from this source @ -[No] Did you review nursing and triage notes (agree or disagree)? Why? @ -[I reviewed and agree with nursing and triage notes] Were old charts reviewed (outside hosp., previous admission, EMS record, old EKG, old radiological studies, urgent care reports/EKG's, skilled nursing records)? Report findings @ -[old charts were reviewed] Differential Diagnosis (chest pain, altered mental status, abdominal pain women, abdominal pain men, vaginal bleeding, weakness, fever, dyspnea, syncope, h eadache, dizziness, GI bleed, back pain, seizure, CVA, palpatations, mental health, musculoskeletal)? @ -[Differential diagnosis includes osteomyelitis, wound infection, cellulitis EKG interpreted by me (3pts min.). @ -[As above] X-rays interpreted by me (1pt min.). @ -[None done] CT interpreted by me (1pt min.). @ -[None done] U/S interpreted by me (1pt. min.). @ -[None done] What testing was considered but not performed or refused? (CT, X-rays, U/S, labs)? Why? @ -[None] What meds were considered but not given or refused? Why? @ -[None] Did you discuss the management of the patient with other professionals (professionals i.e. , PA, CABLEWAY OPERATOR, lab, RT, psych nurse, socially responsible investment adviser, grader tender, teacher, security officers and guards, case filler)? Give summary @ -[Case discussed with admitting physician Was smoking cessation discussed for >3mins.? @ -[No] Was critical care preformed (if so, how long)? @ -[No] Were there social determinants of health that impacted care today? How? (Homelessness, low income, unemployed, alcoholism, drug addiction, transportation, low edu. Level, literacy, decrease access to med. care, half-way, rehab)? @ -[No] Was there de-escalation of care discussed even if they declined (Discuss DNR or withdrawal of care, Hospice)? DNR status @ -[No] What co-morbidities impacted this encounter? (DM, HTN, Smoking, COPD, CAD, Cancer, CVA, ARF, Chemo, Hep., AIDS, mental health diagnosis, sleep apnea, morbid obesity)? @ -[None] Was patient admitted / discharged? Hospital course, mention meds given and route, prescriptions, significant lab abnormalities, going to OR and other pertinent info. @ -[Admitted Undiagnosed new problem with uncertain prognosis? @ -[No] Drug Therapy requiring intensive monitoring for toxicity (Heparin, Nitro, Insulin, Cardizem)? @ -[No] Were any procedures done? @ -[No] Diagnosis/symptom? @ -Hyperglycemia. Possible diabetic foot infection Acute, or Chronic, or Acute on Chronic? @ -[acute Uncomplicated (without systemic symptoms) or Complicated (systemic symptoms)? @ -[uncomplicated Side effects of treatment? @ -[No] Exacerbation, Progression, or Severe Exacerbation? @ -[No] Poses a threat to life or bodily function? How? (Chest pain, [place], [place], pneumonia, PE, COPD, DKA, ARF, appy, cholecystitis, CVA, Diverticulitis, Homicidal, Suicidal, threat to staff... and all critical care pts) @ -[No] - Lab Data Result diagrams: 08/16/22 06:34 08/16/22 06:34 Lab Results 08/11/22 08/11/22 08/11/22 Range/Units 00:33 02:21 02:21 WBC 9.0 (3.8-10.6) k/uL RBC 4.06 (3.80-5.40) m/uL Hgb 10.3 L (11.4-16.0) gm/dL Hct 31.8 L (34.0-46.0) % MCV 78.3 L (80.0-100.0) fL MCH 25.3 (25.0-35.0) pg MCHC 32.2 (31.0-37.0) g/dL RDW 16.4 H (11.5-15.5) % Plt Count 393 (150-450) k/uL MPV 7.9 Neutrophils % 71 % Lymphocytes % 20 % Monocytes % 5 % Eosinophils % 3 % Basophils % 0 % Neutrophils # 6.4 (1.3-7.7) k/uL Lymphocytes # 1.8 (1.0-4.8) k/uL Monocytes # 0.4 (0-1.0) k/uL Eosinophils # 0.3 (0-0.7) k/uL Basophils # 0.0 (0-0.2) k/uL Anisocytosis Slight Microcytosis Slight Sodium 137 (137-145) mmol/L Potassium 4.8 (3.5-5.1) mmol/L Chloride 102 (98-107) mmol/L Carbon Dioxide 21 L (22-30) mmol/L Anion Gap 14 mmol/L BUN 27 H (7-17) mg/dL Creatinine 0.66 (0.52-1.04) mg/dL Est GFR (CKD-EPI)AfAm >90 (>60 ml/min/1.73 sqM) Est GFR (CKD-EPI)NonAf >90 (>60 ml/min/1.73 sqM) Glucose 202 H (74-99) mg/dL POC Glucose (mg/dL) 219 H (70-110) mg/dL POC Glu [employer] Window Clerk ID Brayan Javier Plasma Lactic Acid Harris (0.7-2.0) mmol/L Calcium 9.9 (8.4-10.2) mg/dL Total Bilirubin 0.4 (0.2-1.3) mg/dL AST 18 (14-36) U/L ALT 14 (4-34) U/L Alkaline Phosphatase 123 (38-126) U/L C-Reactive Protein 4.6 H (<1.0) mg/dL Total Protein 8.6 H (6.3-8.2) g/dL Albumin 4.1 (3.5-5.0) g/dL TSH (0.465-4.680) mIU/L 08/11/22 08/11/22 08/11/22 Range/Units 02:21 02:21 06:53 WBC (3.8-10.6) k/uL RBC (3.80-5.40) m/uL Hgb (11.4-16.0) gm/dL Hct (34.0-46.0) % MCV (80.0-100.0) fL MCH (25.0-35.0) pg MCHC (31.0-37.0) g/dL RDW (11.5-15.5) % Plt Count (150-450) k/uL MPV Neutrophils % % Lymphocytes % % Monocytes % % Eosinophils % % Basophils % % Neutrophils # (1.3-7.7) k/uL Lymphocytes # (1.0-4.8) k/uL Monocytes # (0-1.0) k/uL Eosinophils # (0-0.7) k/uL Basophils # (0-0.2) k/uL Anisocytosis Microcytosis Sodium (137-145) mmol/L Potassium (3.5-5.1) mmol/L Chloride (98-107) mmol/L Carbon Dioxide (22-30) mmol/L Anion Gap mmol/L BUN (7-17) mg/dL Creatinine (0.52-1.04) mg/dL Est GFR (CKD-EPI)AfAm (>60 ml/min/1.73 sqM) Est GFR (CKD-EPI)NonAf (>60 ml/min/1.73 sqM) Glucose (74-99) mg/dL POC Glucose (mg/dL) 157 H (70-110) mg/dL POC Glu [employer] Window Clerk Rona Middleton Plasma Lactic Acid Harris 0.7 (0.7-2.0) mmol/L Calcium (8.4-10.2) mg/dL Total Bilirubin (0.2-1.3) mg/dL AST (14-36) U/L ALT (4-34) U/L Alkaline Phosphatase (38-126) U/L C-Reactive Protein (<1.0) mg/dL Total Protein (6.3-8.2) g/dL Albumin (3.5-5.0) g/dL TSH 1.750 (0.465-4.680) mIU/L 08/11/22 08/11/22 08/11/22 Range/Units 11:31 17:00 20:22 WBC (3.8-10.6) k/uL RBC (3.80-5.40) m/uL Hgb (11.4-16.0) gm/dL Hct (34.0-46.0) % MCV (80.0-100.0) fL MCH (25.0-35.0) pg MCHC (31.0-37.0) g/dL RDW (11.5-15.5) % Plt Count (150-450) k/uL MPV Neutrophils % % Lymphocytes % % Monocytes % % Eosinophils % % Basophils % % Neutrophils # (1.3-7.7) k/uL Lymphocytes # (1.0-4.8) k/uL Monocytes # (0-1.0) k/uL Eosinophils # (0-0.7) k/uL Basophils # (0-0.2) k/uL Anisocytosis Microcytosis Sodium (137-145) mmol/L Potassium (3.5-5.1) mmol/L Chloride (98-107) mmol/L Carbon Dioxide (22-30) mmol/L Anion Gap mmol/L BUN (7-17) mg/dL Creatinine (0.52-1.04) mg/dL Est GFR (CKD-EPI)AfAm (>60 ml/min/1.73 sqM) Est GFR (CKD-EPI)NonAf (>60 ml/min/1.73 sqM) Glucose (74-99) mg/dL POC Glucose (mg/dL) 283 H 161 H 224 H (70-110) mg/dL POC Glu [employer] Window Clerk DAJA Wall, Rona Wall, Mare Rocha Plasma Lactic Acid Harris (0.7-2.0) mmol/L Calcium (8.4-10.2) mg/dL Total Bilirubin (0.2-1.3) mg/dL AST (14-36) U/L ALT (4-34) U/L Alkaline Phosphatase (38-126) U/L C-Reactive Protein (<1.0) mg/dL Total Protein (6.3-8.2) g/dL Albumin (3.5-5.0) g/dL TSH (0.465-4.680) mIU/L 08/12/22 08/12/22 08/12/22 Range/Units 07:06 11:45 17:04 WBC (3.8-10.6) k/uL RBC (3.80-5.40) m/uL Hgb (11.4-16.0) gm/dL Hct (34.0-46.0) % MCV (80.0-100.0) fL MCH (25.0-35.0) pg MCHC (31.0-37.0) g/dL RDW (11.5-15.5) % Plt Count (150-450) k/uL MPV Neutrophils % % Lymphocytes % % Monocytes % % Eosinophils % % Basophils % % Neutrophils # (1.3-7.7) k/uL Lymphocytes # (1.0-4.8) k/uL Monocytes # (0-1.0) k/uL Eosinophils # (0-0.7) k/uL Basophils # (0-0.2) k/uL Anisocytosis Microcytosis Sodium (137-145) mmol/L Potassium (3.5-5.1) mmol/L Chloride (98-107) mmol/L Carbon Dioxide (22-30) mmol/L Anion Gap mmol/L BUN (7-17) mg/dL Creatinine (0.52-1.04) mg/dL Est GFR (CKD-EPI)AfAm (>60 ml/min/1.73 sqM) Est GFR (CKD-EPI)NonAf (>60 ml/min/1.73 sqM) Glucose (74-99) mg/dL POC Glucose (mg/dL) 121 H 126 H 101 (70-110) mg/dL POC Glu [employer] Window Clerk ID Robertyk, Evonne Jonesyk, Evonne Jonesedison, Evonne Plasma Lactic Acid Harris (0.7-2.0) mmol/L Calcium (8.4-10.2) mg/dL Total Bilirubin (0.2-1.3) mg/dL AST (14-36) U/L ALT (4-34) U/L Alkaline Phosphatase (38-126) U/L C-Reactive Protein (<1.0) mg/dL Total Protein (6.3-8.2) g/dL Albumin (3.5-5.0) g/dL TSH (0.465-4.680) mIU/L 08/12/22 08/13/22 08/13/22 Range/Units 20:30 07:14 11:59 WBC (3.8-10.6) k/uL RBC (3.80-5.40) m/uL Hgb (11.4-16.0) gm/dL Hct (34.0-46.0) % MCV (80.0-100.0) fL MCH (25.0-35.0) pg MCHC (31.0-37.0) g/dL RDW (11.5-15.5) % Plt Count (150-450) k/uL MPV Neutrophils % % Lymphocytes % % Monocytes % % Eosinophils % % Basophils % % Neutrophils # (1.3-7.7) k/uL Lymphocytes # (1.0-4.8) k/uL Monocytes # (0-1.0) k/uL Eosinophils # (0-0.7) k/uL Basophils # (0-0.2) k/uL Anisocytosis Microcytosis Sodium (137-145) mmol/L Potassium (3.5-5.1) mmol/L Chloride (98-107) mmol/L Carbon Dioxide (22-30) mmol/L Anion Gap mmol/L BUN (7-17) mg/dL Creatinine (0.52-1.04) mg/dL Est GFR (CKD-EPI)AfAm (>60 ml/min/1.73 sqM) Est GFR (CKD-EPI)NonAf (>60 ml/min/1.73 sqM) Glucose (74-99) mg/dL POC Glucose (mg/dL) 145 H 171 H 182 H (70-110) mg/dL POC Glu [employer] Window Clerk ID Bhargavijose, Mare Simons, Maya Whitehead Plasma Lactic Acid Harris (0.7-2.0) mmol/L Calcium (8.4-10.2) mg/dL Total Bilirubin (0.2-1.3) mg/dL AST (14-36) U/L ALT (4-34) U/L Alkaline Phosphatase (38-126) U/L C-Reactive Protein (<1.0) mg/dL Total Protein (6.3-8.2) g/dL Albumin (3.5-5.0) g/dL TSH (0.465-4.680) mIU/L 08/13/22 08/13/22 08/14/22 Range/Units 17:41 20:23 06:55 WBC (3.8-10.6) k/uL RBC (3.80-5.40) m/uL Hgb (11.4-16.0) gm/dL Hct (34.0-46.0) % MCV (80.0-100.0) fL MCH (25.0-35.0) pg MCHC (31.0-37.0) g/dL RDW (11.5-15.5) % Plt Count (150-450) k/uL MPV Neutrophils % % Lymphocytes % % Monocytes % % Eosinophils % % Basophils % % Neutrophils # (1.3-7.7) k/uL Lymphocytes # (1.0-4.8) k/uL Monocytes # (0-1.0) k/uL Eosinophils # (0-0.7) k/uL Basophils # (0-0.2) k/uL Anisocytosis Microcytosis Sodium (137-145) mmol/L Potassium (3.5-5.1) mmol/L Chloride (98-107) mmol/L Carbon Dioxide (22-30) mmol/L Anion Gap mmol/L BUN (7-17) mg/dL Creatinine (0.52-1.04) mg/dL Est GFR (CKD-EPI)AfAm (>60 ml/min/1.73 sqM) Est GFR (CKD-EPI)NonAf (>60 ml/min/1.73 sqM) Glucose (74-99) mg/dL POC Glucose (mg/dL) 133 H 166 H 177 H (70-110) mg/dL POC Glu [employer] Window Clerk ID Umm Murphy, Radha Elaine Plasma Lactic Acid Harris (0.7-2.0) mmol/L Calcium (8.4-10.2) mg/dL Total Bilirubin (0.2-1.3) mg/dL AST (14-36) U/L ALT (4-34) U/L Alkaline Phosphatase (38-126) U/L C-Reactive Protein (<1.0) mg/dL Total Protein (6.3-8.2) g/dL Albumin (3.5-5.0) g/dL TSH (0.465-4.680) mIU/L Disposition Clinical Impression: Hyperglycemia Disposition: HOME SELF-CARE Condition: Good Is patient prescribed a controlled substance at d/c from ED?: No
[2022-08-11] MEDS ORDERED: MORPHINE SULFATE 4 MG/ML SYRINGE IV STA (04:41)
[2022-08-11] MEDS ORDERED: NALOXONE 0.4 MG/ML 1 ML VIAL IV PRN (04:42)
[2022-08-11] MEDS ORDERED: SODIUM CHLORIDE 0.9% 1,000 ML IV SCH (04:45)
[2022-08-11] MEDS ORDERED: ONDANSETRON 4 MG/2 ML VIAL IVP STA (04:50)
[2022-08-11 06:55] LABS: Glucose,Whole Blood 157 mg/dL (70-110)
[2022-08-11] MEDS: LORATADINE 10 MG TAB PO SCH (09:48)
[2022-08-11] MEDS: metFORMIN 500 MG TAB PO SCH ×2 (09:48→17:37)
[2022-08-11] MEDS: POTASSIUM CHLORIDE ER 10 MEQ TAB.ER.PRT PO SCH (09:48)
[2022-08-11] MEDS: FUROSEMIDE 20 MG TAB PO SCH (09:48)
[2022-08-11] MEDS: ATORVASTATIN 20 MG TAB PO SCH (09:48)
[2022-08-11] MEDS: HYDROcodone/APAP 5-325MG 1 EACH TAB PO PRN ×2 (10:00→22:58)
[2022-08-11 11:38] LABS: Glucose,Whole Blood 283 mg/dL (70-110)
[2022-08-11] MEDS: INSULIN ASPART (NovoLOG) 100 UNIT/ML VIAL SQ SCH ×2 (12:58→17:37)
[2022-08-11] MEDS ORDERED: LIDOCAINE 1% INJ 10MG/ML (30 ML VIAL-PF) SQ STA (14:08)
[2022-08-11] MEDS: AMPICILLIN-SULBACTAM 3 GM in SODIUM CHLORIDE 0.9% 100 ML IVPB SCH ×2 (14:25→20:49)
--- NOTE | 2022-08-11 15:05 | P.HPIM ---
History of Present Illness H&P Date: 08/11/22 This is a 36-year-old female with medical history of asthma, diabetes mellitus, hypertension, hyperlipidemia, migraines, ovarian cancer. Patient has a prior section, cholecystectomy. Patient also has history of toe amputations on the right and left foot. Patient presents to the hospital with concern for burning pain and discomfort bilateral feet which is likely due to a diabetic neuropathy. Patient also has wounds on her feet bilaterally was recently on outpatient IV antibiotics and had PICC line which has since been removed. Patient reports noting increase in drainage jayden to the wound on the right outer foot. Patient does follow Dr. Sainz and Dr. Jaimes outpatient and was recently hospitalized from 06/30/22 to 07/03/22 for osteomyelitis. On admission, patient has no elevated white blood cell is normal at 9.0, glucose in the 200s. CRP mildly elevated at 4.6. Infectious disease is consulted for further management of the DM foot wounds. Cultures will be taken. Most recent culture back in June of the right foot wound were negative. Patient is admitted to the hospital with consult placed to ID. REVIEW OF SYSTEMS: CONSTITUTIONAL: No fever, no malaise, no fatigue. HEENT: No recent visual problems or hearing problems. Reports sore throat. CARDIOVASCULAR: No chest pain, orthopnea, PND, no palpitations, no syncope. PULMONARY: No shortness of breath, no cough, no hemoptysis. GASTROINTESTINAL: No diarrhea, no nausea, no vomiting, Reported abdominal cramping. NEUROLOGICAL: No headaches, no weakness, no numbness. HEMATOLOGICAL: Denies any bleeding or petechiae. GENITOURINARY: Denies any burning micturition, frequency, or urgency. MUSCULOSKELETAL/RHEUMATOLOGICAL: Denies any joint pain, swelling, or any muscle pain. ENDOCRINE: Denies any polyuria or polydipsia. The rest of the 14-point review of systems is negative. PHYSICAL EXAMINATION: GENERAL: The patient is alert and oriented x3, not in any acute distress. Well developed, well nourished. HEENT: Pupils are round and equally reacting to light. EOMI. No scleral icterus. No conjunctival pallor. Normocephalic, atraumatic. No pharyngeal erythema. No thyromegaly. CARDIOVASCULAR: S1 and S2 present. No murmurs, rubs, or gallops. PULMONARY: Chest is clear to auscultation, no wheezing or crackles. ABDOMEN: Soft, nontender, nondistended, normoactive bowel sounds. No palpable organomegaly. MUSCULOSKELETAL: No joint swelling or deformity. EXTREMITIES: No cyanosis, clubbing, or pedal edema. NEUROLOGICAL: Gross neurological examination did not reveal any focal deficits. SKIN: left and right foot lateral border wound. Assessment Right diabetic foot infection with worsening swelling and drainage. Left diabetic foot infection History of diabetic foot infection and osteomyelitis status post left fifth toe amputation recently on outpatient IV antibiotics. Hyperglycemia with uncontrolled diabetes type 2 insulin-dependent Hypertension Hyperlipidemia Osteoarthritis DVT prophylaxis with heparin subcu GI prophylaxis Full Code Plan Pending evaluation by Dr. Jaimes Resume appropriate home medications Right Foot wound has been cultured Accuchecks ACHS and continue on home regimen with sliding scale insulin coverage The impression and plan of care has been dictated by Geena Cooley Nurse Practitioner as directed. Dr. Priyanka MD I have performed a history and physical examination and medical decision making of this patient, discussed the same with the dictator, and agree with the dictators assessment and plan as written, documented as a scribe. Based on total visit time, I have performed more than 50% of this visit. Past Medical History Past Medical History: Asthma, Cancer, Diabetes Mellitus, Hyperlipidemia, Hypertension, Osteoarthritis (OA) Additional Past Medical History / Comment(s): Migraines. HX OVARIAN CA. Abdominal Pain- vomiting and diarrhea, ON/OFF. RECENT BLOOD IN URINE X2.; umbilical hernia History of Any Multi-Drug Resistant Organisms: None Reported Past Surgical History: Section, Cholecystectomy, Orthopedic Surgery Additional Past Surgical History / Comment(s): Rt Oophorectomy, EGD, colonoscopy, toes amputated (second, fifth on left; fifth toe on right) Past Anesthesia/Blood Transfusion Reactions: No Reported Reaction Past Psychological History: No Psychological Hx Reported Smoking Status: Never smoker Past Alcohol Use History: None Reported Past Drug Use History: Marijuana - Past Family History Mother Family Medical History: No Reported History Medications and Allergies Home Medications Medication Instructions Recorded Confirmed Type medroxyPROGESTERone [Depo-Provera] 150 mg IM Q90D 04/22/20 08/11/22 History Atorvastatin [Lipitor] 20 mg PO DAILY 06/30/22 08/11/22 History Dulaglutide [Trulicity] 0.75 mg SQ MO 06/30/22 08/11/22 History Insulin Aspart [NovoLOG Flexpen] 10 units SQ AC-TID 06/30/22 08/11/22 History Insulin Glargine,Hum.rec.anlog 65 units SQ HS 06/30/22 08/11/22 History [Lantus Solostar Pen] metroNIDAZOLE 500 mg PO TID 06/30/22 08/11/22 History Furosemide [Lasix] 20 mg PO DAILY 08/11/22 08/11/22 History Insulin Aspart [NovoLOG Flexpen] See Protocol SQ AC-TID 08/11/22 08/11/22 History Loratadine [Claritin] 10 mg PO DAILY 08/11/22 08/11/22 History Potassium Chloride [Klor-Con M10] 10 meq PO DAILY 08/11/22 08/11/22 History metFORMIN HCL ER [Glucophage XR] 1,000 mg PO DAILY 08/11/22 08/11/22 History Allergies Allergy/AdvReac Type Severity Reaction Status Date / Time vancomycin Allergy kidney Verified 08/11/22 08:02 problems Physical Exam Vitals: Vital Signs Temp Pulse Pulse Resp BP BP Pulse Ox 08/11/22 06:25 98.0 F 84 15 104/67 100 08/11/22 06:05 97.9 F 90 18 126/89 97 08/11/22 04:58 90 18 126/89 97 08/11/22 00:25 97.9 F 94 20 112/87 97 Intake and Output 08/10/22 08/11/22 08/11/22 22:59 06:59 14:59 Other: Weight 106.141 kg Results CBC & Chem 7: 08/11/22 02:21 08/11/22 02:21 Labs: Abnormal Lab Results - Last 24 Hours (Table) 08/11/22 08/11/22 08/11/22 Range/Units 00:33 02:21 02:21 Hgb 10.3 L (11.4-16.0) gm/dL Hct 31.8 L (34.0-46.0) % MCV 78.3 L (80.0-100.0) fL RDW 16.4 H (11.5-15.5) % Carbon Dioxide 21 L (22-30) mmol/L BUN 27 H (7-17) mg/dL Glucose 202 H (74-99) mg/dL POC Glucose (mg/dL) 219 H (70-110) mg/dL C-Reactive Protein 4.6 H (<1.0) mg/dL Total Protein 8.6 H (6.3-8.2) g/dL 08/11/22 Range/Units 06:53 Hgb (11.4-16.0) gm/dL Hct (34.0-46.0) % MCV (80.0-100.0) fL RDW (11.5-15.5) % Carbon Dioxide (22-30) mmol/L BUN (7-17) mg/dL Glucose (74-99) mg/dL POC Glucose (mg/dL) 157 H (70-110) mg/dL C-Reactive Protein (<1.0) mg/dL Total Protein (6.3-8.2) g/dL Thrombosis Risk Factor Assmnt - Choose All That Apply Any of the Below Risk Factors Present?: Yes Each Factor Represents 1 point: Obesity (BMI >25) Other Risk Factors: No Other congenital or acquired thrombophilia - If yes, enter type in comment: No Thrombosis Risk Factor Assessment Total Risk Factor Score: 1 Thrombosis Risk Factor Assessment Level: Low Risk Assessment and Plan Time with Patient: Less than 30
[2022-08-11] MEDS: DOCUSATE 100 MG CAP PO PRN (15:30)
[2022-08-11] MEDS: ACETAMINOPHEN TAB 325 MG TAB PO PRN (15:30)
[2022-08-11 17:02] LABS: Glucose,Whole Blood 161 mg/dL (70-110)
[2022-08-11 20:41] LABS: Glucose,Whole Blood 224 mg/dL (70-110)
[2022-08-11] MEDS: INSULIN DETEMIR (LEVEMIR) 100 UNIT/ML SYR SQ SCH (20:48)
[2022-08-11] MEDS: HEPARIN SODIUM,PORCINE/PF 5,000 UNIT/0.5 ML SYRINGE SQ SCH (20:52)
--- NOTE | 2022-08-11 21:25 | OP ---
OPERATIVE REPORT DATE OF SERVICE : PREOPERATIVE DIAGNOSIS: Wound, right and left plantar aspect. Measurement of the right foot plantar aspect wound is 6 x 1, and left side is 3 x 2 cm. POSTOPERATIVE DIAGNOSIS: Wound, right and left plantar aspect. Measurement of the right foot plantar aspect wound is 6 x 1 x 1 cm, and left foot is 3 x 2 x 0.5 cm. DESCRIPTION OF PROCEDURE: The right foot was prepped and draped in the usual sterile manner. 1% lidocaine plain infiltrated. Using knife, we did the debridement down to subcutaneous tissue, devitalized tissue was removed. No discharge was noted. We sent the deep tissue for culture and then the left foot was prepped and 1% lidocaine was infiltrated and using sharp knives, we excised the wound down to subcutaneous tissue. There was some callus formation which was also excised down to subcutaneous tissue. No active bleeding was noted. The wound was cleaned with saline. After that, Effexor was applied to the wound bilateral. Dressing applied. The patient tolerated the procedure well. The patient will be seen on Sunday for change of dressing. Continue with IV antibiotic. The patient tolerated the procedure well. MMODL / IJN: [id number] /
--- NOTE | 2022-08-11 21:25 | CONS ---
CONSULTATION HISTORY OF PRESENT ILLNESS: This is a 36-year-old female, well known to me from the wound clinic. The patient came in with a high sugar. The patient had a wound on the right and left foot lateral aspect. Medical history, the patient has a history of diabetes and chronic wound to both lower extremities. Surgical history, the patient had bilateral fifth toe amputation done by me in the past. The patient has been coming to the wound clinic for followup. The patient has been admitted because of high blood sugar, and I was consulted for bilateral foot wound management. PAST MEDICAL HISTORY: History of diabetes, history of bilateral chronic wound to lower extremities involving the bilateral lateral aspect of the foot. PHYSICAL EXAMINATION: NECK: Supple. No bruit appreciated. CHEST: Clear to auscultation. Good air entry in both lungs. HEART: First and second sounds normal. ABDOMEN: Soft and nontender. EXTREMITIES: Femorals are palpable bilaterally. Dorsalis pedis is 1+ bilaterally. The patient has a wound on the right foot lateral aspect and also wound on the left leg lateral aspect with some scab formation and some devitalized tissue. PLAN: Debridement of bilateral wounds with deep culture. MMODL / IJN: [id number] /
--- NOTE | 2022-08-11 22:22 | P.CONS ---
History of Present Illness - Reason for Consult Consult date: 08/11/22 Diabetic foot ulcer Requesting physician: Ihsan Booker - Chief Complaint Right foot pain x 2 days - History of Present Illness Patient is a 36-year-old female with a past medical history significant for diabetes mellitus hypertension hyperlipidemia history of ovarian cancer patient did have history of diabetic foot infection requiring amputation of the toes on both feet and has been dealing with a nonhealing wound on the lateral aspect of both feet and the plantar aspect of the right foot patient recently completed a course of IV antibiotic therapy patient is now presenting to the ER for evaluation of increasing drainage and pain to the right foot lateral border especially symptoms seem to be getting worse over the last day and to be denies a history of any trauma describes the pain to be more of a sharp in nature mild intensity did have more drainage from the right foot wound with the same the patient was evaluated on arrival to the ER patient was afebrile and no fever has been recorded subsequently patient did have a normal white count kidney function was normal there was in the normal CRP is 4.6 local culture has been obtained patient has been admitted to hospital infectious was consulted for further management of antibiotic therapy Review of Systems Positive point and negatives has been mentioned in the HPI, complete review of systems was performed and all other systems are negative Past Medical History Past Medical History: Asthma, Cancer, Diabetes Mellitus, Hyperlipidemia, Hypertension, Osteoarthritis (OA) Additional Past Medical History / Comment(s): Migraines. HX OVARIAN CA. Abdominal Pain- vomiting and diarrhea, ON/OFF. RECENT BLOOD IN URINE X2.; umbilical hernia History of Any Multi-Drug Resistant Organisms: None Reported Past Surgical History: Section, Cholecystectomy, Orthopedic Surgery Additional Past Surgical History / Comment(s): Rt Oophorectomy, EGD, colonoscopy, toes amputated (second, fifth on left; fifth toe on right) Past Anesthesia/Blood Transfusion Reactions: No Reported Reaction Past Psychological History: No Psychological Hx Reported Smoking Status: Never smoker Past Alcohol Use History: None Reported Past Drug Use History: Marijuana - Past Family History Mother Family Medical History: No Reported History Medications and Allergies Home Medications Medication Instructions Recorded Confirmed Type medroxyPROGESTERone [Depo-Provera] 150 mg IM Q90D 04/22/20 08/11/22 History Atorvastatin [Lipitor] 20 mg PO DAILY 06/30/22 08/11/22 History Dulaglutide [Trulicity] 0.75 mg SQ MO 06/30/22 08/11/22 History Insulin Aspart [NovoLOG Flexpen] 10 units SQ AC-TID 06/30/22 08/11/22 History Insulin Glargine,Hum.rec.anlog 65 units SQ HS 06/30/22 08/11/22 History [Lantus Solostar Pen] metroNIDAZOLE 500 mg PO TID 06/30/22 08/11/22 History Furosemide [Lasix] 20 mg PO DAILY 08/11/22 08/11/22 History Insulin Aspart [NovoLOG Flexpen] See Protocol SQ AC-TID 08/11/22 08/11/22 Histo ry Loratadine [Claritin] 10 mg PO DAILY 08/11/22 08/11/22 History Potassium Chloride [Klor-Con M10] 10 meq PO DAILY 08/11/22 08/11/22 History metFORMIN HCL ER [Glucophage XR] 1,000 mg PO DAILY 08/11/22 08/11/22 History Acetaminophen Tab [Tylenol] 650 mg PO Q6HR PRN tab 08/16/22 Rx Benzocaine/Menthol Lozeng [Cepacol 1 each MUCOUS MEM Q4HR PRN #20 08/16/22 Rx lozenge] lozenge Docusate [Colace] 100 mg PO DAILY PRN cap 08/16/22 Rx HYDROcodone/APAP 5-325MG [[place] 1 each PO Q4HR PRN #6 tab 08/16/22 Rx 5-325] Magnesium Hydroxide [Milk of 2,400 mg PO DAILY PRN ml 08/16/22 Rx Magnesia Concentrate] Pantoprazole [Protonix] 40 mg PO AC-BID 15 Days #30 tab 08/16/22 Rx Simethicone Chew [Mylicon Chew] 40 mg PO QID PRN tab 08/16/22 Rx polyethylene glycoL 3350 [Miralax] 17 gm PO DAILY #30 packet 08/16/22 Rx Allergies Allergy/AdvReac Type Severity Reaction Status Date / Time vancomycin Allergy kidney Verified 08/11/22 08:02 problems Physical Exam Vitals: Vital Signs Temp Pulse Pulse Resp BP BP Pulse Ox 08/11/22 11:56 97.8 F 85 18 122/66 98 08/11/22 09:43 18 08/11/22 06:25 98.0 F 84 15 104/67 100 08/11/22 06:05 97.9 F 90 18 126/89 97 08/11/22 04:58 90 18 126/89 97 08/11/22 00:25 97.9 F 94 20 112/87 97 Intake and Output 08/10/22 08/11/22 08/11/22 22:59 06:59 14:59 Other: Voiding Method Toilet Weight 106.141 kg GENERAL DESCRIPTION: Middle-aged female lying in bed, no distress. No tachypnea or accessory muscle of respiration use. HEENT: Shows Pallor , no scleral icterus. Oral mucous membrane is dry. No pharyngeal erythema or thrush NECK: Trachea central, no thyromegaly. LUNGS: Unlabored breathing. Clear to auscultation anteriorly. No wheeze or crackle. HEART: S1, S2, regular rate and rhythm. No loud murmur ABDOMEN: Soft, no tenderness , guarding or rigidity, no organomegaly EXTREMITIES: Right foot lateral border area did have a wound with some slough tissue some swelling redness left foot lateral border wound is healed on today's evaluation SKIN: No rash, no masses palpable. NEUROLOGICAL: The patient is awake, alert, oriented x3, mood and affect normal. Results CBC & Chem 7: 08/16/22 06:34 08/16/22 06:34 Labs: Abnormal Lab Results - Last 24 Hours (Table) 08/11/22 08/11/22 08/11/22 Range/Units 00:33 02:21 02:21 Hgb 10.3 L (11.4-16.0) gm/dL Hct 31.8 L (34.0-46.0) % MCV 78.3 L (80.0-100.0) fL RDW 16.4 H (11.5-15.5) % Carbon Dioxide 21 L (22-30) mmol/L BUN 27 H (7-17) mg/dL Glucose 202 H (74-99) mg/dL POC Glucose (mg/dL) 219 H (70-110) mg/dL C-Reactive Protein 4.6 H (<1.0) mg/dL Total Protein 8.6 H (6.3-8.2) g/dL 08/11/22 08/11/22 Range/Units 06:53 11:31 Hgb (11.4-16.0) gm/dL Hct (34.0-46.0) % MCV (80.0-100.0) fL RDW (11.5-15.5) % Carbon Dioxide (22-30) mmol/L BUN (7-17) mg/dL Glucose (74-99) mg/dL POC Glucose (mg/dL) 157 H 283 H (70-110) mg/dL C-Reactive Protein (<1.0) mg/dL Total Protein (6.3-8.2) g/dL Assessment and Plan (1) Diabetic foot infection Status: Acute Code(s): E11.628 - TYPE 2 DIABETES MELLITUS WITH OTHER SKIN COMPLICATIONS; L08.9 - LOCAL INFECTION OF THE SKIN AND SUBCUTANEOUS TISSUE, UNSP SNOMED Code(s): 305690931 (2) Osteomyelitis Status: Acute Code(s): M86.9 - OSTEOMYELITIS, UNSPECIFIED SNOMED Code(s): 67398869 Plan: 1patient with her diabetic foot wound and history of cellulitis as well as osteomyelitis especially to the left foot lateral border area for the patient recently completed her antibiotic therapy now presenting to the hospital with worsening wound on the right foot lateral border and drainage concerning for diabetic foot wound infection and cellulitis and possible deep infection 2we will consult vascular surgery for debridement and deep culture 3-empirically add Unasyn while waiting for the culture to finalize 4-check inflammatory markers We will follow on clinical condition and cultures to further adjust medication if needed Thank you for this consultation we will follow the patient along with you Time with Patient: Greater than 30
[2022-08-12] MEDS: AMPICILLIN-SULBACTAM 3 GM in SODIUM CHLORIDE 0.9% 100 ML IVPB SCH ×4 (02:15→20:55)
[2022-08-12 07:08] LABS: Glucose,Whole Blood 121 mg/dL (70-110)
[2022-08-12] MEDS ORDERED: PANTOPRAZOLE 40 MG TABLET PO SCH (07:30)
[2022-08-12] MEDS: LORATADINE 10 MG TAB PO SCH (09:13)
[2022-08-12] MEDS: HEPARIN SODIUM,PORCINE/PF 5,000 UNIT/0.5 ML SYRINGE SQ SCH ×2 (09:13→21:00)
[2022-08-12] MEDS: INSULIN ASPART (NovoLOG) 100 UNIT/ML VIAL SQ SCH ×3 (09:13→17:34)
[2022-08-12] MEDS: ATORVASTATIN 20 MG TAB PO SCH (09:14)
[2022-08-12] MEDS: FUROSEMIDE 20 MG TAB PO SCH (09:14)
[2022-08-12] MEDS: metFORMIN 500 MG TAB PO SCH ×2 (09:14→17:18)
[2022-08-12] MEDS: polyethylene glycoL 3350 17 GM POWD.PACK PO SCH (09:15)
[2022-08-12] MEDS: POTASSIUM CHLORIDE ER 10 MEQ TAB.ER.PRT PO SCH (09:15)
[2022-08-12] MEDS: DOCUSATE 100 MG CAP PO PRN (09:52)
[2022-08-12 11:47] LABS: Glucose,Whole Blood 126 mg/dL (70-110)
[2022-08-12] MEDS ORDERED: SIMETHICONE 80 MG CHEWABLE PO PRN (12:57)
[2022-08-12] MEDS ORDERED: LACTULOSE 20 GM/30 ML CUP PO ONE (12:57)
[2022-08-12] MEDS: HYDROcodone/APAP 5-325MG 1 EACH TAB PO PRN (13:38)
[2022-08-12] MEDS: BENZOCAINE/MENTHOL LOZENG 1 EACH LOZENGE MUCOUS MEM PRN (13:39)
[2022-08-12 17:05] LABS: Glucose,Whole Blood 101 mg/dL (70-110)
--- NOTE | 2022-08-12 20:13 | P.PN ---
Subjective Progress Note Date: 08/12/22 Principal diagnosis: Diabetic foot wound and cellulitis Patient is a 36-year-old female with a past medical history pertinent for diabetes mellitus patient did have a history of diabetic foot ulcer infection requiring amputation of the toes presenting to the hospital with right foot lateral border wound drainage and concerning for wound infection. On today's evaluation that is 08/12/2022 patient denies having any fever or any chills has been complaining of sore throat especially to the left side of the throat no difficulty swallowing no no nausea vomiting abdominal pain or wo rsening pain to the right foot Objective - Vital Signs Vital signs: Vital Signs Temp 98.3 F 08/12/22 07:27 Pulse 82 08/12/22 07:27 Resp 18 08/12/22 07:27 BP 141/81 08/12/22 07:27 Pulse Ox 98 08/12/22 07:27 FiO2 Intake & Output 08/11/22 08/12/22 08/12/22 18:59 06:59 18:59 Intake Total 350 Balance 350 Intake: Oral 350 Other: Voiding Method Toilet Toilet # Voids 3 2 - Exam GENERAL DESCRIPTION: Middle-aged female lying in bed in no distress RESPIRATORY SYSTEM: Unlabored breathing , decreased breath sounds at bases HEART: S1 S2 regular rate and rhythm , ABDOMEN: Soft , no tenderness EXTREMITIES: Bilateral feet wound is currently dressed. - Labs CBC & Chem 7: 08/14/22 13:25 08/15/22 05:53 Labs: Abnormal Lab Results - Last 24 Hours (Table) 08/11/22 08/11/22 08/11/22 Range/Units 11:31 17:00 20:22 POC Glucose (mg/dL) 283 H 161 H 224 H (70-110) mg/dL 08/12/22 Range/Units 07:06 POC Glucose (mg/dL) 121 H (70-110) mg/dL Microbiology - Last 24 Hours (Table) 08/11/22 02:15 Blood Culture - Preliminary Blood 08/11/22 13:20 Wound Culture - Preliminary Foot - Right 08/11/22 13:20 Anaerobic Culture - Preliminary Foot - Right Assessment and Plan Plan: 1patient with her diabetic foot wound and history of cellulitis as well as ost eomyelitis especially to the left foot lateral border area for the patient recently completed her antibiotic therapy now presenting to the hospital with worsening wound on the right foot lateral border and drainage concerning for diabetic foot wound infection and cellulitis and possible deep infection 2Pt has been evaluated by vascular surgery and S/P debridement and deep culture 3-Pt to continue with Unasyn while waiting for the culture to finalize Time with Patient: Less than 30
[2022-08-12 20:51] LABS: Glucose,Whole Blood 145 mg/dL (70-110)
[2022-08-12] MEDS: INSULIN DETEMIR (LEVEMIR) 100 UNIT/ML SYR SQ SCH (20:57)
[2022-08-12] MEDS: PANTOPRAZOLE 40 MG/10 ML VIAL IVP SCH (20:58)
--- NOTE | 2022-08-13 00:16 | P.PN ---
Subjective Progress Note Date: 08/12/22 This is a 36-year-old female with medical history of asthma, diabetes mellitus, hypertension, hyperlipidemia, migraines, ovarian cancer. Patient has a prior section, cholecystectomy. Patient also has history of toe amputations on the right and left foot. Patient presents to the hospital with concern for burning pain and discomfort bilateral feet which is likely due to a diabetic neuropathy. Patient also has wounds on her feet bilaterally was recently on outpatient IV antibiotics and had PICC line which has since been removed. Patient reports noting increase in drainage jayden to the wound on the right outer foot. Patient does follow Dr. Sainz and Dr. Jaimes outpatient and was recently hospitalized from 06/30/22 to 07/03/22 for osteomyelitis. On admission, patient has no elevated white blood cell is normal at 9.0, glucose in the 200s. CRP mildly elevated at 4.6. Infectious disease is consulted for further management of the DM foot wounds. Cultures will be taken. Most recent culture back in June of the right foot wound were negative. Patient is admitted to the hospital with consult placed to ID. 08/12/2022 Patient is evaluated on the medical floor. Dr. Sainz performed bedside surgical debridement on bilateral foot wounds with deep tissue cultures taken and pending. Patient will require finalized cultures prior to discharge. ID is following closely and making recommendations, patient continues on IV Ampicillin. Patient continues to report abdominal cramping and discomfort more so in the evening when lying flat and does have significant history of gastric reflux and for this reason protonix has been changed to IV twice a day. Patient is given lactulose also continues to report constipation. Patient is passing gas. Abdomen is soft and nontender no abdominal distention noted on exam. Local wound care recommendations with aquacel silver in place. Blood glucose has i mproved since admission and down to the low 100s. Review of Systems Constitutional: Denied any fatigue denied any fever. Cardio vascular: denied any chest pain, palpitations Gastrointestinal: denied any nausea, vomiting, diarrhea Pulmonary: Denied any shortness of breath cough Neurologic denied any new focal deficits All inpatient medications were reviewed and appropriate changes in these medi cations as dictated in the interval history and assessment and plan. PHYSICAL EXAMINATION: GENERAL: The patient is alert and oriented x3, not in any acute distress. Well developed, well nourished. HEENT: Pupils are round and equally reacting to light. EOMI. No scleral icterus. No conjunctival pallor. Normocephalic, atraumatic. No pharyngeal erythema. No thyromegaly. CARDIOVASCULAR: S1 and S2 present. No murmurs, rubs, or gallops. PULMONARY: Chest is clear to auscultation, no wheezing or crackles. ABDOMEN: Soft, nontender, nondistended, normoactive bowel sounds. No palpable organomegaly. MUSCULOSKELETAL: No joint swelling or deformity. EXTREMITIES: No cyanosis, clubbing, or pedal edema. NEUROLOGICAL: Gross neurological examination did not reveal any focal deficits. SKIN: left and right foot lateral border wound. Assessment Right diabetic foot infection with worsening swelling and drainage. Left diabetic foot infection History of diabetic foot infection and osteomyelitis status post left fifth toe amputation recently on outpatient IV antibiotics. Hyperglycemia with uncontrolled diabetes type 2 insulin-dependent Constipation Gastroesophageal Reflux Disease Hypertension Hyperlipidemia Osteoarthritis DVT prophylaxis with heparin subcu GI prophylaxis Full Code Plan Patient is s/p surgical debridement and pending deep tissue cultures Remains on IV unasyn with infectious disease making recommendations and following cultures Recommend to continue on bowel regimen and given dose of lactulose x 1 today. Accuchecks ACHS and continue on home regimen with sliding scale insulin coverage Patient will remain hospitalized pending finalized wound cultures for discharge antibiotic recommendations Continue local wound care with aquacel silver as recommending. Patient follows with Dr. Sainz outpatient for wound care. The impression and plan of care has been dictated by Geena Cooley, Nurse Practitioner as directed. Dr. Priyanka MD I have performed a history and physical examination and medical decision making of this patient, discussed the same with the dictator, and agree with the dictators assessment and plan as written, documented as a scribe. Based on total visit time, I have performed more than 50% of this visit. Objective - Vital Signs Vital signs: Vital Signs Temp 98.3 F 08/12/22 07:27 Pulse 82 08/12/22 07:27 Resp 18 08/12/22 07:27 BP 141/81 08/12/22 07:27 Pulse Ox 98 08/12/22 07:27 FiO2 Intake & Output 08/11/22 08/12/22 08/12/22 18:59 06:59 18:59 Intake Total 350 Balance 350 Intake: Oral 350 Other: Voiding Method Toilet Toilet # Voids 3 2 - Labs CBC & Chem 7: 08/11/22 02:21 08/11/22 02:21 Labs: Abnormal Lab Results - Last 24 Hours (Table) 08/11/22 08/11/22 08/11/22 Range/Units 11:31 17:00 20:22 POC Glucose (mg/dL) 283 H 161 H 224 H (70-110) mg/dL 08/12/22 Range/Units 07:06 POC Glucose (mg/dL) 121 H (70-110) mg/dL Microbiology - Last 24 Hours (Table) 08/11/22 13:20 Wound Culture - Preliminary Foot - Right 08/11/22 13:20 Anaerobic Culture - Preliminary Foot - Right Assessment and Plan Time with Patient: Less than 30
[2022-08-13] MEDS: HYDROcodone/APAP 5-325MG 1 EACH TAB PO PRN ×3 (01:40→22:47)
[2022-08-13] MEDS: DAPTOmycin 350 MG in SODIUM CHLORIDE 0.9% 50 ML IVPB SCH (01:42)
[2022-08-13] MEDS: BENZOCAINE/MENTHOL LOZENG 1 EACH LOZENGE MUCOUS MEM PRN ×3 (01:50→19:50)
[2022-08-13] MEDS: AMPICILLIN-SULBACTAM 3 GM in SODIUM CHLORIDE 0.9% 100 ML IVPB SCH ×4 (02:51→19:43)
[2022-08-13 07:16] LABS: Glucose,Whole Blood 171 mg/dL (70-110)
[2022-08-13] MEDS: LORATADINE 10 MG TAB PO SCH (08:15)
[2022-08-13] MEDS: POTASSIUM CHLORIDE ER 10 MEQ TAB.ER.PRT PO SCH (08:15)
[2022-08-13] MEDS: metFORMIN 500 MG TAB PO SCH ×2 (08:15→17:47)
[2022-08-13] MEDS: ATORVASTATIN 20 MG TAB PO SCH (08:15)
[2022-08-13] MEDS: HEPARIN SODIUM,PORCINE/PF 5,000 UNIT/0.5 ML SYRINGE SQ SCH ×2 (08:16→21:02)
[2022-08-13] MEDS: INSULIN ASPART (NovoLOG) 100 UNIT/ML VIAL SQ SCH ×5 (08:16→21:03)
[2022-08-13] MEDS: polyethylene glycoL 3350 17 GM POWD.PACK PO SCH (08:17)
[2022-08-13] MEDS: DOCUSATE 100 MG CAP PO PRN (09:25)
[2022-08-13] MEDS: PANTOPRAZOLE 40 MG/10 ML VIAL IVP SCH ×2 (09:28→21:02)
[2022-08-13 12:01] LABS: Glucose,Whole Blood 182 mg/dL (70-110)
--- NOTE | 2022-08-13 14:42 | P.PN ---
Subjective Progress Note Date: 08/13/22 This is a 36-year-old female with medical history of asthma, diabetes mellitus, hypertension, hyperlipidemia, migraines, ovarian cancer. Patient has a prior section, cholecystectomy. Patient also has history of toe amputations on the right and left foot. Patient presents to the hospital with concern for burning pain and discomfort bilateral feet which is likely due to a diabetic neuropathy. Patient also has wounds on her feet bilaterally was recently on outpatient IV antibiotics and had PICC line which has since been removed. Patient reports noting increase in drainage jayden to the wound on the right outer foot. Patient does follow Dr. Sainz and Dr. Jaimes outpatient and was recently hospitalized from 06/30/22 to 07/03/22 for osteomyelitis. On admission, patient has no elevated white blood cell is normal at 9.0, glucose in the 200s. CRP mildly elevated at 4.6. Infectious disease is consulted for further management of the DM foot wounds. Cultures will be taken. Most recent culture back in June of the right foot wound were negative. Patient is admitted to the hospital with consult placed to ID. 08/12/2022 Patient is evaluated on the medical floor. Dr. Sainz performed bedside surgical debridement on bilateral foot wounds with deep tissue cultures taken and pending. Patient will require finalized cultures prior to discharge. ID is following closely and making recommendations, patient continues on IV Ampicillin. Patient continues to report abdominal cramping and discomfort more so in the evening when lying flat and does have significant history of gastric reflux and for this reason protonix has been changed to IV twice a day. Patient is given lactulose also continues to report constipation. Patient is passing gas. Abdomen is soft and nontender no abdominal distention noted on exam. Local wound care recommendations with aquacel silver in place. Blood glucose has i mproved since admission and down to the low 100s. 08/13/2022 Patient remains on the medical floor. Overall feeling better than admission reports improvement in sore throat with the cepacol lozenges. Patient is status post surgical debridement and wounds will be reevaluated tomorrow by Dr. Sainz at the bedside. Infectious disease is following the cultures and patient remains on IV antibiotics in the form of IV ampicillin and IV daptomycin. Wound cultures are showing gram negative bacilli, presumptive MRSA and Groupd D enterococcus pending finalized cultures and microsensitivities. Blood glucose is improved. Local wound care in place with aquacel silver and kerlex. Patient has not had a BM yet. Review of Systems Constitutional: Denied any fatigue denied any fever. Cardio vascular: denied any chest pain, palpitations Gastrointestinal: denied any nausea, vomiting, diarrhea reports constipation. Pulmonary: Denied any shortness of breath cough Neurologic denied any new focal deficits All inpatient medications were reviewed and appropriate changes in these medications as dictated in the interval history and assessment and plan. PHYSICAL EXAMINATION: GENERAL: The patient is alert and oriented x3, not in any acute distress. Well developed, well nourished. HEENT: Pupils are round and equally reacting to light. EOMI. No scleral icterus. No conjunctival pallor. Normocephalic, atraumatic. No pharyngeal erythema. No thyromegaly. CARDIOVASCULAR: S1 and S2 present. No murmurs, rubs, or gallops. PULMONARY: Chest is clear to auscultation, no wheezing or crackles. ABDOMEN: Soft, nontender, nondistended, normoactive bowel sounds. No palpable organomegaly. MUSCULOSKELETAL: No joint swelling or deformity. EXTREMITIES: No cyanosis, clubbing, or pedal edema. NEUROLOGICAL: Gross neurological examination did not reveal any focal deficits. SKIN: left and right foot lateral border wound with dressings intact. Assessment Right diabetic foot infection with worsening swelling and drainage. Left diabetic foot infection History of diabetic foot infection and osteomyelitis status post left fifth toe amputation recently on outpatient IV antibiotics. Hyperglycemia with uncontrolled diabetes type 2 insulin-dependent Constipation Gastroesophageal Reflux Disease Hypertension Hyperlipidemia Osteoarthritis DVT prophylaxis with heparin subcu GI prophylaxis Full Code Plan Patient is s/p surgical debridement and pending deep tissue cultures Remains on IV antibiotics with infectious disease making recommendations and following cultures Recommend to continue on bowel regimen Accuchecks ACHS and continue on home regimen with sliding scale insulin coverage Patient will remain hospitalized pending finalized wound cultures for discharge antibiotic recommendations Continue local wound care with aquacel silver as recommending. Patient follows with Dr. Sainz outpatient for wound care. The impression and plan of care has been dictated by Geena Cooley, Nurse Practitioner as directed. Dr. Priyanka MD I have performed a history and physical examination and medical decision making of this patient, discussed the same with the dictator, and agree with the dictators assessment and plan as written, documented as a scribe. Based on total visit time, I have performed more than 50% of this visit. Objective - Vital Signs Vital signs: Vital Signs Temp 98.0 F 08/13/22 07:14 Pulse 84 08/13/22 07:14 Resp 18 08/13/22 07:14 BP 128/90 08/13/22 07:14 Pulse Ox 99 08/13/22 07:14 FiO2 Intake & Output 08/12/22 08/13/22 08/13/22 18:59 06:59 18:59 Intake Total 150 Balance 150 Intake: Intake, IV Titration 150 Amount Ampicillin-Sulbactam 3 gm 100 In Sodium Chloride 0.9% 100 ml @ 200 mls/hr IVPB Q6H [facility] Rx#:[id number] DAPTOmycin 350 mg In 50 Sodium Chloride 0.9% 50 ml @ 100 mls/hr IVPB Q24H [facility] Rx#:[id number] Other: Voiding Method Toilet Toilet # Voids 1 0 # Bowel Movements 0 - Labs CBC & Chem 7: 08/11/22 02:21 08/11/22 02:21 Labs: Abnormal Lab Results - Last 24 Hours (Table) 08/12/22 08/12/22 08/13/22 Range/Units 11:45 20:30 07:14 POC Glucose (mg/dL) 126 H 145 H 171 H (70-110) mg/dL Microbiology - Last 24 Hours (Table) 08/11/22 13:20 Wound Culture - Preliminary Foot - Right Gram Neg Bacilli Presumptive MRSA Group D Enterococcus 08/11/22 02:15 Blood Culture - Preliminary Blood Assessment and Plan Time with Patient: Less than 30
[2022-08-13] MEDS ORDERED: MAGNESIUM HYDROXIDE 2,400 MG/10 ML CUP PO PRN (15:20)
[2022-08-13 17:43] LABS: Glucose,Whole Blood 133 mg/dL (70-110)
[2022-08-13 20:47] LABS: Glucose,Whole Blood 166 mg/dL (70-110)
[2022-08-13] MEDS: ACETAMINOPHEN TAB 325 MG TAB PO PRN (21:03)
[2022-08-13] MEDS: INSULIN DETEMIR (LEVEMIR) 100 UNIT/ML SYR SQ SCH (21:03)
[2022-08-14] MEDS: DAPTOmycin 350 MG in SODIUM CHLORIDE 0.9% 50 ML IVPB SCH (00:30)
[2022-08-14] MEDS: AMPICILLIN-SULBACTAM 3 GM in SODIUM CHLORIDE 0.9% 100 ML IVPB SCH ×4 (01:45→19:44)
[2022-08-14 06:57] LABS: Glucose,Whole Blood 177 mg/dL (70-110)
[2022-08-14] MEDS: INSULIN ASPART (NovoLOG) 100 UNIT/ML VIAL SQ SCH ×7 (08:27→20:29)
[2022-08-14] MEDS: PANTOPRAZOLE 40 MG/10 ML VIAL IVP SCH ×2 (08:28→20:29)
[2022-08-14] MEDS: HEPARIN SODIUM,PORCINE/PF 5,000 UNIT/0.5 ML SYRINGE SQ SCH ×2 (08:28→20:28)
[2022-08-14] MEDS: polyethylene glycoL 3350 17 GM POWD.PACK PO SCH (08:30)
[2022-08-14] MEDS: FUROSEMIDE 20 MG TAB PO SCH (08:30)
[2022-08-14] MEDS: ATORVASTATIN 20 MG TAB PO SCH (08:30)
[2022-08-14] MEDS: POTASSIUM CHLORIDE ER 10 MEQ TAB.ER.PRT PO SCH (08:30)
[2022-08-14] MEDS: metFORMIN 500 MG TAB PO SCH ×2 (08:30→17:54)
[2022-08-14] MEDS: LORATADINE 10 MG TAB PO SCH (08:30)
[2022-08-14 12:18] LABS: Glucose,Whole Blood 126 mg/dL (70-110)
--- NOTE | 2022-08-14 12:28 | P.PN ---
Progress Note - Text 36-year-old white female history of diabetes, patient came in with high-pressure we are patient has a bilateral wound S aspect of the both feet post toe Adelaida and in the past we did the debridement of the right and left foot patient is under care of infectious disease today we have changed the dressing and we applied axis silver patient is stable from surgical point of view if patient goes home patient will follow-up in the wound clinic at [facility] dressing should be changed every 48 hour with excellent silver
[2022-08-14] MEDS: HYDROcodone/APAP 5-325MG 1 EACH TAB PO PRN ×2 (13:09→20:30)
[2022-08-14 13:58] LABS: Anisocytosis Slight; Basophils % (A) 0 %; Eosinophils # (A) 0.1 k/uL (0-0.7); Eosinophils % (A) 2 %; HCT 34.6 % (34.0-46.0); Hypochromasia Slight; Lymphocytes # (A) 1.7 k/uL (1.0-4.8); Lymphocytes % (A) 27 %; MCH 25.2 pg (25.0-35.0); MCHC 31.7 g/dL (31.0-37.0); MCV 79.4 fL (80.0-100.0); Mean Platelet Volume 7.5; Microcytosis Slight; Monocytes # (A) 0.2 k/uL (0-1.0); Monocytes % (A) 4 %; Neutrophils % (A) 65 %; Platelet Count 386 k/uL (150-450); RBC 4.35 m/uL (3.80-5.40); RDW 16.1 % (11.5-15.5); WBC 6.2 k/uL (3.8-10.6)
[2022-08-14 14:06] LABS: ALT 17 U/L (4-34); AST 21 U/L (14-36); African American GFR (CKD) >90 (>60 ml/min/1.73 sqM); Albumin 3.7 g/dL (3.5-5.0); Albumin/Globulin Ratio 0.8; Alkaline Phosphatase 127 U/L (38-126); Anion Gap 8 mmol/L; Blood Urea Nitrogen 13 mg/dL (7-17); Calcium 9.5 mg/dL (8.4-10.2); Carbon Dioxide 28 mmol/L (22-30); Chloride 102 mmol/L (98-107); Globulin 4.4 g/dL; Glucose 118 mg/dL (74-99); Non-African American GFR(CKD) >90 (>60 ml/min/1.73 sqM); Potassium 4.4 mmol/L (3.5-5.1); Sodium 138 mmol/L (137-145); Total Bilirubin 0.2 mg/dL (0.2-1.3); Total Protein 8.1 g/dL (6.3-8.2)
[2022-08-14 15:44] LABS: Erythrocyte Sedimentation Rate 112 mm/hr (0-20)
--- NOTE | 2022-08-14 16:57 | P.PN ---
Subjective Progress Note Date: 08/14/22 This is a 36-year-old female with medical history of asthma, diabetes mellitus, hypertension, hyperlipidemia, migraines, ovarian cancer. Patient has a prior section, cholecystectomy. Patient also has history of toe amputations on the right and left foot. Patient presents to the hospital with concern for burning pain and discomfort bilateral feet which is likely due to a diabetic neuropathy. Patient also has wounds on her feet bilaterally was recently on outpatient IV antibiotics and had PICC line which has since been removed. Patient reports noting increase in drainage jayden to the wound on the right outer foot. Patient does follow Dr. Sainz and Dr. Jaimes outpatient and was recently hospitalized from 06/30/22 to 07/03/22 for osteomyelitis. On admission, patient has no elevated white blood cell is normal at 9.0, glucose in the 200s. CRP mildly elevated at 4.6. Infectious disease is consulted for further management of the DM foot wounds. Cultures will be taken. Most recent culture back in June of the right foot wound were negative. Patient is admitted to the hospital with consult placed to ID. 08/12/2022 Patient is evaluated on the medical floor. Dr. Sainz performed bedside surgical debridement on bilateral foot wounds with deep tissue cultures taken and pending. Patient will require finalized cultures prior to discharge. ID is following closely and making recommendations, patient continues on IV Ampicillin. Patient continues to report abdominal cramping and discomfort more so in the evening when lying flat and does have significant history of gastric reflux and for this reason protonix has been changed to IV twice a day. Patient is given lactulose also continues to report constipation. Patient is passing gas. Abdomen is soft and nontender no abdominal distention noted on exam. Local wound care recommendations with aquacel silver in place. Blood glucose has i mproved since admission and down to the low 100s. 08/13/2022 Patient remains on the medical floor. Overall feeling better than admission reports improvement in sore throat with the cepacol lozenges. Patient is status post surgical debridement and wounds will be reevaluated tomorrow by Dr. Sainz at the bedside. Infectious disease is following the cultures and patient remains on IV antibiotics in the form of IV ampicillin and IV daptomycin. Wound cultures are showing gram negative bacilli, presumptive MRSA and Groupd D enterococcus pending finalized cultures and microsensitivities. Blood glucose is improved. Local wound care in place with aquacel silver and kerlex. Patient has not had a BM yet. 08/14/2022 Patient evaluated today sitting up at the bedside. Patient did have a bowel movement with no further complaints of abdominal pain. Patient had dressing change done today with vascular surgery and patient to follow up in the wound care. Patient has aquacel silver applied to the bilateral right and left foot wounds and recommended to be changed every 48 hours. Currently on IV ampicillin and IV daptomycin. Wound culture showing leclericia, MRSA, and enterococcus faecalis. The deep tissue cultures of the right and left foot are pending final cultures and microsensitivities. Patient does complain of dizziness when standing this could be an underlying dysautonomia from poorly controlled diabetes. Orthostatic blood pressures are done and negative. Review of Systems Constitutional: Denied any fatigue denied any fever. Cardio vascular: denied any chest pain, palpitations Gastrointestinal: denied any nausea, vomiting, diarrhea Pulmonary: Denied any shortness of breath cough Neurologic denied any new focal deficits All inpatient medications were reviewed and appropriate changes in these medications as dictated in the interval history and assessment and plan. PHYSICAL EXAMINATION: GENERAL: The patient is alert and oriented x3, not in any acute distress. Well developed, well nourished. HEENT: Pupils are round and equally reacting to light. EOMI. No scleral icterus. No conjunctival pallor. Normocephalic, atraumatic. No pharyngeal erythema. No thyromegaly. CARDIOVASCULAR: S1 and S2 present. No murmurs, rubs, or gallops. PULMONARY: Chest is clear to auscultation, no wheezing or crackles. ABDOMEN: Soft, nontender, nondistended, normoactive bowel sounds. No palpable organomegaly. MUSCULOSKELETAL: No joint swelling or deformity. EXTREMITIES: No cyanosis, clubbing, or pedal edema. NEUROLOGICAL: Gross neurological examination did not reveal any focal deficits. SKIN: left and right foot lateral border wound with dressings intact. Assessment Bilateral diabetic foot infection with worsening drainage, s/p surgical debri edith History of diabetic foot infection and osteomyelitis status post left fifth toe amputation recently on outpatient IV antibiotics. Hyperglycemia with uncontrolled diabetes type 2 insulin-dependent Constipation resolved Gastroesophageal Reflux Disease Hypertension Hyperlipidemia Osteoarthritis DVT prophylaxis with heparin subcu GI prophylaxis Full Code Plan Patient is s/p surgical debridement and pending final deep tissue cultures Remains on IV antibiotics with infectious disease making recommendations, bone scan is ordered possible PICC line with IV antibiotics vs. oral on discharge pending the bone scan results. Recommend to continue on bowel regimen Accuchecks ACHS and continue on home regimen with sliding scale insulin coverage Continue local wound care with aquacel silver as recommending to change every 48 hours[address] Patient follows with Dr. Sainz outpatient for wound care. The impression and plan of care has been dictated by Nurse Omid Rasconitioner as directed. Dr. Priyanka MD I have performed a history and physical examination and medical decision making of this patient, discussed the same with the dictator, and agree with the dictat ors assessment and plan as written, documented as a scribe. Based on total visit time, I have performed more than 50% of this visit. Objective - Vital Signs Vital signs: Vital Signs Temp 98.6 F 08/14/22 13:56 Pulse 87 08/14/22 13:56 Resp 15 08/14/22 13:56 BP 132/83 08/14/22 13:56 Pulse Ox 100 08/14/22 12:15 FiO2 Intake & Output 08/13/22 08/14/22 08/14/22 18:59 06:59 18:59 Intake Total 450 500 Balance 450 500 Intake: Intake, IV Titration 450 Amount Ampicillin-Sulbactam 3 gm 400 In Sodium Chloride 0.9% 100 ml @ 200 mls/hr IVPB Q6H [facility] Rx#:[id number] DAPTOmycin 350 mg In 50 Sodium Chloride 0.9% 50 ml @ 100 mls/hr IVPB Q24H [facility] Rx#:[id number] Oral 500 Other: Voiding Method Toilet Toilet # Voids 1 # Bowel Movements 1 - Labs CBC & Chem 7: 08/14/22 13:25 08/14/22 13:25 Labs: Abnormal Lab Results - Last 24 Hours (Table) 08/13/22 08/13/22 08/14/22 Range/Units 17:41 20:23 06:55 Hgb (11.4-16.0) gm/dL MCV (80.0-100.0) fL RDW (11.5-15.5) % ESR (0-20) mm/hr Creatinine (0.52-1.04) mg/dL Glucose (74-99) mg/dL POC Glucose (mg/dL) 133 H 166 H 177 H (70-110) mg/dL Alkaline Phosphatase (38-126) U/L 08/14/22 08/14/22 08/14/22 Range/Units 12:17 13:25 13:25 Hgb 11.0 L (11.4-16.0) gm/dL MCV 79.4 L (80.0-100.0) fL RDW 16.1 H (11.5-15.5) % ESR 112 H (0-20) mm/hr Creatinine 0.51 L (0.52-1.04) mg/dL Glucose 118 H (74-99) mg/dL POC Glucose (mg/dL) 126 H (70-110) mg/dL Alkaline Phosphatase 127 H (38-126) U/L Microbiology - Last 24 Hours (Table) 08/11/22 14:28 Anaerobic Culture - Preliminary Foot - Right 08/11/22 14:37 Anaerobic Culture - Preliminary Foot - Left 08/11/22 02:15 Blood Culture - Preliminary Blood 08/11/22 13:20 Gram Stain - Final Foot - Right Wound Culture - Final Leclericia adecarboxylata Methicillin resist S. aureus Enterococcus faecalis 08/11/22 13:20 Anaerobic Culture - Preliminary Foot - Right 08/11/22 14:28 Gram Stain - Preliminary Foot - Right Tissue Culture - Preliminary Gram Neg Bacilli Presumptive Staph aureus Coagulase Negative Staph 08/11/22 14:37 Gram Stain - Preliminary Foot - Left Tissue Culture - Preliminary Gram Neg Bacilli Presumptive Staph aureus Group D Enterococcus Alpha Hemolytic Streptococcus Assessment and Plan Time with Patient: Less than 30
[2022-08-14 16:59] LABS: Glucose,Whole Blood 212 mg/dL (70-110)
[2022-08-14 20:23] LABS: Glucose,Whole Blood 152 mg/dL (70-110)
[2022-08-14] MEDS: INSULIN DETEMIR (LEVEMIR) 100 UNIT/ML SYR SQ SCH (20:29)
[2022-08-15] MEDS: DAPTOmycin 350 MG in SODIUM CHLORIDE 0.9% 50 ML IVPB SCH (01:02)
[2022-08-15] MEDS: AMPICILLIN-SULBACTAM 3 GM in SODIUM CHLORIDE 0.9% 100 ML IVPB SCH ×4 (02:12→20:46)
[2022-08-15] MEDS: ACETAMINOPHEN TAB 325 MG TAB PO PRN (05:50)
[2022-08-15 06:44] LABS: Glucose,Whole Blood 184 mg/dL (70-110)
[2022-08-15 06:46] LABS: African American GFR (CKD) >90 (>60 ml/min/1.73 sqM); Anion Gap 10 mmol/L; Blood Urea Nitrogen 15 mg/dL (7-17); Calcium 9.2 mg/dL (8.4-10.2); Carbon Dioxide 26 mmol/L (22-30); Chloride 102 mmol/L (98-107); Glucose 159 mg/dL (74-99); Non-African American GFR(CKD) >90 (>60 ml/min/1.73 sqM); Potassium 4.2 mmol/L (3.5-5.1); Sodium 138 mmol/L (137-145)
[2022-08-15] MEDS: polyethylene glycoL 3350 17 GM POWD.PACK PO SCH (08:50)
[2022-08-15] MEDS: HEPARIN SODIUM,PORCINE/PF 5,000 UNIT/0.5 ML SYRINGE SQ SCH ×2 (08:50→20:46)
[2022-08-15] MEDS: INSULIN ASPART (NovoLOG) 100 UNIT/ML VIAL SQ SCH ×7 (08:51→21:01)
[2022-08-15] MEDS: ATORVASTATIN 20 MG TAB PO SCH (08:52)
[2022-08-15] MEDS: LORATADINE 10 MG TAB PO SCH (08:53)
[2022-08-15] MEDS: POTASSIUM CHLORIDE ER 10 MEQ TAB.ER.PRT PO SCH (08:53)
[2022-08-15] MEDS: FUROSEMIDE 20 MG TAB PO SCH (08:53)
[2022-08-15] MEDS: metFORMIN 500 MG TAB PO SCH ×2 (08:53→19:05)
[2022-08-15] MEDS: PANTOPRAZOLE 40 MG TABLET PO SCH ×2 (09:00→19:05)
[2022-08-15 11:47] LABS: Glucose,Whole Blood 211 mg/dL (70-110)
--- NOTE | 2022-08-15 13:45 | NM ---
EXAMINATION TYPE: NM bone 3 phase DATE OF EXAM: 08/15/2022 COMPARISON: NONE CLINICAL INDICATION: Female, 36 years old with history of r foot lateral border planter wound r/o o steo; Triple phase bone scintigraphy was performed following the injection of 25.3 mCi Tc 99m MDP. Immedia te images and 5.5 hours post injection images acquired. FINDINGS: L3 phases of the study there is increased radiotracer accumulation along the lateral aspect of the ri ght foot appears to correspond to the mid and proximal portion of the fifth metatarsal and cuboid. I cannot exclude underlying osteomyelitis. There is also moderate increased uptake about the left ankle and left mid foot on all 3 phases of the study which could be posttraumatic in nature, related to ac tive arthritic change. Additional osteomyelitis not excluded. IMPRESSION: 1. Cannot exclude osteomyelitis involving the right cuboid and fifth metatarsal. Correlate clinically and radiographically. 2. Moderate increased uptake involving the ankle and midfoot on the left on all 3 phases of the study is nonspecific.
[2022-08-15] MEDS: HYDROcodone/APAP 5-325MG 1 EACH TAB PO PRN ×2 (13:51→21:04)
[2022-08-15 17:03] LABS: Glucose,Whole Blood 117 mg/dL (70-110)
[2022-08-15 20:20] LABS: Glucose,Whole Blood 217 mg/dL (70-110)
[2022-08-15] MEDS: INSULIN DETEMIR (LEVEMIR) 100 UNIT/ML SYR SQ SCH (20:49)
--- NOTE | 2022-08-15 22:28 | P.PN ---
Subjective Progress Note Date: 08/13/22 Principal diagnosis: Diabetic foot wound and cellulitis Patient is a 36-year-old female with a past medical history pertinent for diabetes mellitus patient did have a history of diabetic foot ulcer infection requiring amputation of the toes presenting to the hospital with right foot lateral border wound drainage and concerning for wound infection. On today's evaluation that is 08/13/2022 patient denies any fever or chills, denies any chest pain shortness of cough, no nausea vomiting abdominal pain or worsening pain to the right foot Objective - Vital Signs Vital signs: Vital Signs Temp 98.0 F 08/13/22 07:14 Pulse 84 08/13/22 07:14 Resp 18 08/13/22 07:14 BP 128/90 08/13/22 07:14 Pulse Ox 99 08/13/22 07:14 FiO2 Intake & Output 08/12/22 08/13/22 08/13/22 18:59 06:59 18:59 Intake Total 150 Balance 150 Intake: Intake, IV Titration 150 Amount Ampicillin-Sulbactam 3 gm 100 In Sodium Chloride 0.9% 100 ml @ 200 mls/hr IVPB Q6H [facility] Rx#:[id number] DAPTOmycin 350 mg In 50 Sodium Chloride 0.9% 50 ml @ 100 mls/hr IVPB Q24H [facility] Rx#:[id number] Other: Voiding Method Toilet Toilet Toilet # Voids 1 0 # Bowel Movements 0 - Exam GENERAL DESCRIPTION: Middle-aged female lying in bed in no distress RESPIRATORY SYSTEM: Unlabored breathing , decreased breath sounds at bases HEART: S1 S2 regular rate and rhythm , ABDOMEN: Soft , no tenderness EXTREMITIES: Bilateral feet wound is currently dressed. - Labs CBC & Chem 7: 08/14/22 13:25 08/15/22 05:53 Labs: Abnormal Lab Results - Last 24 Hours (Table) 08/12/22 08/13/22 08/13/22 Range/Units 20:30 07:14 11:59 POC Glucose (mg/dL) 145 H 171 H 182 H (70-110) mg/dL Microbiology - Last 24 Hours (Table) 08/11/22 13:20 Gram Stain - Preliminary Foot - Right Wound Culture - Preliminary Gram Neg Bacilli Presumptive MRSA Group D Enterococcus 08/11/22 02:15 Blood Culture - Preliminary Blood Assessment and Plan (1) Diabetic foot infection Current Visit: No Status: Acute Code(s): E11.628 - TYPE 2 DIABETES MELLITUS WITH OTHER SKIN COMPLICATIONS; L08.9 - LOCAL INFECTION OF THE SKIN AND SUBCUTANEOUS TISSUE, UNSP SNOMED Code(s): 967540957 Plan: 1patient with her diabetic foot wound and history of cellulitis as well as osteomyelitis especially to the left foot lateral border area for the patient recently completed her antibiotic therapy now presenting to the hospital with worsening wound on the right foot lateral border and drainage concerning for diabetic foot wound infection and cellulitis and possible deep infection 2Pt has been evaluated by vascular surgery and S/P debridement and deep culture 3-cultures did grew present MRSA daptomycin has been admitted, patient to co ntinue with Unamisaeln while waiting for the culture to finalize Time with Patient: Less than 30
--- NOTE | 2022-08-15 22:31 | P.PN ---
Subjective Progress Note Date: 08/14/22 Principal diagnosis: Diabetic foot wound and cellulitis Patient is a 36-year-old female with a past medical history pertinent for diabetes mellitus patient did have a history of diabetic foot ulcer infection requiring amputation of the toes presenting to the hospital with right foot lateral border wound drainage and concerning for wound infection. On today's evaluation that is 08/14/2022 patient remains to be afebrile patient is breathing comfortablypain shortness of cough no nausea no vomiting no abdominal pain has been complaining of some pain to the right foot wound area Objective - Vital Signs Vital signs: Vital Signs Temp 98.3 F 08/14/22 06:55 Pulse 80 08/14/22 06:55 Resp 14 08/14/22 06:55 BP 158/89 08/14/22 06:55 Pulse Ox 97 08/14/22 06:55 FiO2 Intake & Output 08/13/22 08/14/22 08/14/22 18:59 06:59 18:59 Intake Total 450 500 Balance 450 500 Intake: Intake, IV Titration 450 Amount Ampicillin-Sulbactam 3 gm 400 In Sodium Chloride 0.9% 100 ml @ 200 mls/hr IVPB Q6H [facility] Rx#:[id number] DAPTOmycin 350 mg In 50 Sodium Chloride 0.9% 50 ml @ 100 mls/hr IVPB Q24H [facility] Rx#:[id number] Oral 500 Other: Voiding Method Toilet Toilet # Voids 1 # Bowel Movements 1 - Exam GENERAL DESCRIPTION: Middle-aged female lying in bed in no distress RESPIRATORY SYSTEM: Unlabored breathing , decreased breath sounds at bases HEART: S1 S2 regular rate and rhythm , ABDOMEN: Soft , no tenderness EXTREMITIES: Left foot lateral border wound is currently healed. Has some swelling but no redness no warmth or drainage Right foot lateral border wound is not deep bone is nonpalpable right foot plantar wound with no slough tissue or foul-smelling drainage - Labs CBC & Chem 7: 08/14/22 13:25 08/15/22 05:53 Labs: Abnormal Lab Results - Last 24 Hours (Table) 08/13/22 08/13/22 08/13/22 Range/Units 11:59 17:41 20:23 POC Glucose (mg/dL) 182 H 133 H 166 H (70-110) mg/dL 08/14/22 Range/Units 06:55 POC Glucose (mg/dL) 177 H (70-110) mg/dL Microbiology - Last 24 Hours (Table) 08/11/22 02:15 Blood Culture - Preliminary Blood 08/11/22 13:20 Gram Stain - Final Foot - Right Wound Culture - Final Leclericia adecarboxylata Methicillin resist S. aureus Enterococcus faecalis 08/11/22 13:20 Anaerobic Culture - Preliminary Foot - Right 08/11/22 14:28 Gram Stain - Preliminary Foot - Right Tissue Culture - Preliminary Gram Neg Bacilli Presumptive Staph aureus Coagulase Negative Staph 08/11/22 14:37 Gram Stain - Preliminary Foot - Left Tissue Culture - Preliminary Gram Neg Bacilli Presumptive Staph aureus Group D Enterococcus Alpha Hemolytic Streptococcus Assessment and Plan (1) Diabetic foot infection Current Visit: No Status: Acute Code(s): E11.628 - TYPE 2 DIABETES MELLITUS WITH OTHER SKIN COMPLICATIONS; L08.9 - LOCAL INFECTION OF THE SKIN AND SUBCUTANEOUS TISSUE, UNSP SNOMED Code(s): 792025815 Plan: 1patient with her diabetic foot wound and history of cellulitis as well as osteomyelitis especially to the left foot lateral border area for the patient recently completed her antibiotic therapy now presenting to the hospital with worsening wound on the right foot lateral border and drainage concerning for diabetic foot wound infection and cellulitis and possible deep infection 2Pt has been evaluated by vascular surgery and S/P debridement and deep culture 3-patient culture did grew present to MRSA and some gram-negative with ID sensitivities pending 4-right foot wound does not deep however with the patient is growing presumptive MRSA we will obtain bone scan to make sure no evidence of anyOsteomyelitis also check inflammatory markers continue with the vancomycin and Unasyn discussed with the admitting team Time with Patient: Less than 30
--- NOTE | 2022-08-15 22:32 | P.PN ---
Subjective Progress Note Date: 08/15/22 Principal diagnosis: Diabetic foot wound and cellulitis Patient is a 36-year-old female with a past medical history pertinent for diabetes mellitus patient did have a history of diabetic foot ulcer infection requiring amputation of the toes presenting to the hospital with right foot lateral border wound drainage and concerning for wound infection. On today's evaluation that is 08/15/2022 patient continues to be afebrile patient is breathing comfortably on room air, the patient denies chest pain shortness of cough no nausea no vomiting no abdominal pain has been complaining of some pain to the right foot wound area Objective - Vital Signs Vital signs: Vital Signs Temp 98.1 F 08/15/22 06:40 Pulse 76 08/15/22 06:40 Resp 14 08/15/22 06:40 BP 134/89 08/15/22 06:40 Pulse Ox 99 08/15/22 06:40 FiO2 Intake & Output 08/14/22 08/15/22 08/15/22 18:59 06:59 18:59 Intake Total 200 600 Balance 200 600 Intake: Intake, IV Titration 200 Amount Ampicillin-Sulbactam 3 gm 200 In Sodium Chloride 0.9% 100 ml @ 200 mls/hr IVPB Q6H [facility] Rx#:[id number] Oral 600 Other: Voiding Method Toilet Toilet # Voids 1 - Exam GENERAL DESCRIPTION: Middle-aged female lying in bed in no distress RESPIRATORY SYSTEM: Unlabored breathing , decreased breath sounds at bases HEART: S1 S2 regular rate and rhythm , ABDOMEN: Soft , no tenderness EXTREMITIES: Bilateral foot wounds are currently dressed no drainage on the dressing - Labs CBC & Chem 7: 08/14/22 13:25 08/15/22 05:53 Labs: Abnormal Lab Results - Last 24 Hours (Table) 08/14/22 08/14/22 08/14/22 Range/Units 12:17 13:25 13:25 Hgb 11.0 L (11.4-16.0) gm/dL MCV 79.4 L (80.0-100.0) fL RDW 16.1 H (11.5-15.5) % ESR 112 H (0-20) mm/hr Creatinine 0.51 L (0.52-1.04) mg/dL Glucose 118 H (74-99) mg/dL POC Glucose (mg/dL) 126 H (70-110) mg/dL Alkaline Phosphatase 127 H (38-126) U/L 08/14/22 08/14/22 08/15/22 Range/Units 16:57 20:19 05:53 Hgb (11.4-16.0) gm/dL MCV (80.0-100.0) fL RDW (11.5-15.5) % ESR (0-20) mm/hr Creatinine (0.52-1.04) mg/dL Glucose 159 H (74-99) mg/dL POC Glucose (mg/dL) 212 H 152 H (70-110) mg/dL Alkaline Phosphatase (38-126) U/L 08/15/22 Range/Units 06:43 Hgb (11.4-16.0) gm/dL MCV (80.0-100.0) fL RDW (11.5-15.5) % ESR (0-20) mm/hr Creatinine (0.52-1.04) mg/dL Glucose (74-99) mg/dL POC Glucose (mg/dL) 184 H (70-110) mg/dL Alkaline Phosphatase (38-126) U/L Microbiology - Last 24 Hours (Table) 08/11/22 02:15 Blood Culture - Preliminary Blood 08/11/22 14:28 Anaerobic Culture - Preliminary Foot - Right 08/11/22 14:37 Anaerobic Culture - Preliminary Foot - Left Assessment and Plan (1) Diabetic foot infection Current Visit: No Status: Acute Code(s): E11.628 - TYPE 2 DIABETES MELLITUS WITH OTHER SKIN COMPLICATIONS; L08.9 - LOCAL INFECTION OF THE SKIN AND SUBCUTANEOUS TISSUE, UNSP SNOMED Code(s): 783424634 Plan: 1patient with her diabetic foot wound and history of cellulitis as well as osteomyelitis especially to the left foot lateral border area for the patient recently completed her antibiotic therapy now presenting to the hospital with worsening wound on the right foot lateral border and drainage concerning for diabetic foot wound infection and cellulitis and possible deep infection 2Pt has been evaluated by vascular surgery and S/P debridement and deep culture 3-patient culture did grew present to MRSA and some gram-negative with ID sensitivities pending 4-right foot wound does not deep however with the patient is growing presumptive MRSA we are currently waiting for the bone scan to be finalized to determine her discharge antibiotics, continue with Unasyn and vancomycin at this point Time with Patient: Less than 30
[2022-08-16] MEDS: DAPTOmycin 350 MG in SODIUM CHLORIDE 0.9% 50 ML IVPB SCH ×2 (01:35→17:30)
[2022-08-16] MEDS: AMPICILLIN-SULBACTAM 3 GM in SODIUM CHLORIDE 0.9% 100 ML IVPB SCH ×2 (02:48→08:16)
[2022-08-16] MEDS: BENZOCAINE/MENTHOL LOZENG 1 EACH LOZENGE MUCOUS MEM PRN (02:56)
--- NOTE | 2022-08-16 05:13 | P.PN ---
Subjective Progress Note Date: 08/15/22 This is a 36-year-old female with medical history of asthma, diabetes mellitus, hypertension, hyperlipidemia, migraines, ovarian cancer. Patient has a prior section, cholecystectomy. Patient also has history of toe amputations on the right and left foot. Patient presents to the hospital with concern for burning pain and discomfort bilateral feet which is likely due to a diabetic neuropathy. Patient also has wounds on her feet bilaterally was recently on outpatient IV antibiotics and had PICC line which has since been removed. Patient reports noting increase in drainage jayden to the wound on the right outer foot. Patient does follow Dr. Sainz and Dr. Jaimes outpatient and was recently hospitalized from 06/30/22 to 07/03/22 for osteomyelitis. On admission, patient has no elevated white blood cell is normal at 9.0, glucose in the 200s. CRP mildly elevated at 4.6. Infectious disease is consulted for further management of the DM foot wounds. Cultures will be taken. Most recent culture back in June of the right foot wound were negative. Patient is admitted to the hospital with consult placed to ID. 08/12/2022 Patient is evaluated on the medical floor. Dr. Sainz performed bedside surgical debridement on bilateral foot wounds with deep tissue cultures taken and pending. Patient will require finalized cultures prior to discharge. ID is following closely and making recommendations, patient continues on IV Ampicillin. Patient continues to report abdominal cramping and discomfort more so in the evening when lying flat and does have significant history of gastric reflux and for this reason protonix has been changed to IV twice a day. Patient is given lactulose also continues to report constipation. Patient is passing gas. Abdomen is soft and nontender no abdominal distention noted on exam. Local wound care recommendations with aquacel silver in place. Blood glucose has improved since admission and down to the low 100s. 08/13/2022 Patient remains on the medical floor. Overall feeling better than admission reports improvement in sore throat with the cepacol lozenges. Patient is status post surgical debridement and wounds will be reevaluated tomorrow by Dr. Sainz at the bedside. Infectious disease is following the cultures and patient remains on IV antibiotics in the form of IV ampicillin and IV daptomycin. Wound cultures are showing gram negative bacilli, presumptive MRSA and Groupd D enterococcus pending finalized cultures and microsensitivities. Blood glucose is improved. Local wound care in place with aquacel silver and kerlex. Patient has not had a BM yet. 08/14/2022 Patient evaluated today sitting up at the bedside. Patient did have a bowel mov ement with no further complaints of abdominal pain. Patient had dressing change done today with vascular surgery and patient to follow up in the wound care. Patient has aquacel silver applied to the bilateral right and left foot wounds and recommended to be changed every 48 hours. Currently on IV ampicillin and IV daptomycin. Wound culture showing leclericia, MRSA, and enterococcus faecalis. The deep tissue cultures of the right and left foot are pending final cultures and microsensitivities. Patient does complain of dizziness when standing this could be an underlying dysautonomia from poorly controlled diabetes. Orthostatic blood pressures are done and negative. 08/15/2022 Patient is seen and evaluated in follow-up today currently undergoing a bone scan with infectious disease and vascular surgery following. Patient is maintained on IV antibiotics and awaiting bone Scan results along with deep tissue cultures to determine discharge antibiotics and if patient is requiring IV antibiotics versus oral. Patient is currently afebrile denies chest pain or shortness of breath. No present nausea or vomiting and tolerating diet. Cultures growing multiple organisms including MRSA and will discuss further with infectious disease, possible PICC line. Recommend continue with local wound care and dressing changes per vascular surgery Review of Systems Constitutional: Denied any fatigue denied any fever. Cardio vascular: denied any chest pain, palpitations Gastrointestinal: denied any nausea, vomiting, diarrhea Pulmonary: Denied any shortness of breath cough Neurologic denied any new focal deficits All inpatient medications were reviewed and appropriate changes in these medi cations as dictated in the interval history and assessment and plan. PHYSICAL EXAMINATION: GENERAL: The patient is alert and oriented x3, Well developed, well nourished. HEENT: Pupils are round and equally reacting to light. EOMI. No scleral icterus. No conjunctival pallor. Normocephalic, atraumatic. No pharyngeal erythema. No thyromegaly. CARDIOVASCULAR: S1 and S2 present. No murmurs, rubs, or gallops. PULMONARY: Chest is clear to auscultation, no wheezing or crackles. ABDOMEN: Soft, nontender, nondistended, normoactive bowel sounds. No palpable organomegaly. MUSCULOSKELETAL: No joint swelling or deformity. EXTREMITIES: No cyanosis, clubbing, or pedal edema. NEUROLOGICAL: Gross neurological examination did not reveal any focal deficits. SKIN: left and right foot lateral border wound with dressings intact. Assessment: Bilateral diabetic foot infection with worsening drainage, s/p surgical debridement History of diabetic foot infection and osteomyelitis status post left fifth toe amputation recently on outpatient IV antibiotics. Hyperglycemia with uncontrolled diabetes type 2 insulin-dependent Constipation resolved Gastroesophageal Reflux Disease Hypertension Hyperlipidemia Osteoarthritis DVT prophylaxis with heparin subcu GI prophylaxis Full Code Plan: Patient is s/p surgical debridement and pending final deep tissue cultures. Cultures growing multiple organisms including gram-negative bacilli, alpha hemolytic strep, enterococcus, MRSA and will discuss further with infectious disease about discharge planning once we have bone scan finished a. Patient reports she completed the first session so far. Remains on IV antibiotics with infectious disease making recommendations, bone scan is ordered possible PICC line with IV antibiotics vs. oral on discharge pending the bone scan results. Recommend to continue on bowel regimen Accuchecks ACHS and continue on home regimen with sliding scale insulin coverage Continue local wound care with aquacel silver as recommending to change every 48 hours[address] Patient follows with Dr. Sainz outpatient for wound care. Recommend follow-up labs in a.m. Possible discharge next 24-48 hours The impression and plan of care has been dictated by Maya Del Rio, Nurse Practitioner as directed. Dr. Deion MD I have performed a history and examination and MDM of this patient, discussed the same with the dictator, and agree with the dictator's assessment and plan as written ,documented as a scribe. Based on total visit time, I have performed more than 50% of the visit. Objective - Vital Signs Vital signs: Vital Signs Temp 98.9 F 08/15/22 12:10 Pulse 84 08/15/22 12:10 Resp 14 08/15/22 12:10 BP 159/98 08/15/22 12:10 Pulse Ox 95 08/15/22 12:10 FiO2 Intake & Output 08/14/22 08/15/22 08/15/22 18:59 06:59 18:59 Intake Total 200 600 Balance 200 600 Intake: Intake, IV Titration 200 Amount Ampicillin-Sulbactam 3 gm 200 In Sodium Chloride 0.9% 100 ml @ 200 mls/hr IVPB Q6H [facility] Rx#:[id number] Oral 600 Other: Voiding Method Toilet Toilet Toilet # Voids 1 - Labs CBC & Chem 7: 08/14/22 13:25 08/15/22 05:53 Labs: Abnormal Lab Results - Last 24 Hours (Table) 08/14/22 08/14/22 08/15/22 Range/Units 16:57 20:19 05:53 Glucose 159 H (74-99) mg/dL POC Glucose (mg/dL) 212 H 152 H (70-110) mg/dL 08/15/22 08/15/22 Range/Units 06:43 11:45 Glucose (74-99) mg/dL POC Glucose (mg/dL) 184 H 211 H (70-110) mg/dL Microbiology - Last 24 Hours (Table) 08/11/22 14:28 Gram Stain - Preliminary Foot - Right Tissue Culture - Preliminary Gram Neg Bacilli Presumptive Staph aureus Coagulase Negative Staph Harshadicia adecarboxylata Methicillin resist S. aureus 08/11/22 14:37 Gram Stain - Preliminary Foot - Left Tissue Culture - Preliminary Gram Neg Bacilli Presumptive Staph aureus Group D Enterococcus Alpha Hemolytic Streptococcus Leclericia adecarboxylata Methicillin resist S. aureus Enterococcus faecalis 08/11/22 02:15 Blood Culture - Preliminary Blood 08/11/22 14:28 Anaerobic Culture - Preliminary Foot - Right 08/11/22 14:37 Anaerobic Culture - Preliminary Foot - Left
[2022-08-16 07:10] LABS: Glucose,Whole Blood 123 mg/dL (70-110)
[2022-08-16] MEDS: INSULIN ASPART (NovoLOG) 100 UNIT/ML VIAL SQ SCH ×6 (07:20→17:30)
[2022-08-16 07:34] VITALS: PULSE 79; RESP 16; TEMP 98.4
[2022-08-16 07:35] VITALS: BP 139/76
[2022-08-16 07:46] LABS: INR 1.1 (<1.2)
[2022-08-16 07:48] LABS: Anisocytosis Slight; Basophils % (A) 0 %; Eosinophils # (A) 0.2 k/uL (0-0.7); Eosinophils % (A) 4 %; HCT 27.4 % (34.0-46.0); Lymphocytes # (A) 2.2 k/uL (1.0-4.8); Lymphocytes % (A) 32 %; MCH 26.2 pg (25.0-35.0); MCV 79.2 fL (80.0-100.0); Mean Platelet Volume 7.5; Microcytosis Slight; Monocytes # (A) 0.3 k/uL (0-1.0); Monocytes % (A) 4 %; Neutrophils % (A) 59 %; Platelet Count 349 k/uL (150-450); RBC 3.46 m/uL (3.80-5.40); RDW 16.5 % (11.5-15.5); WBC 6.8 k/uL (3.8-10.6)
[2022-08-16 07:49] LABS: HGB 9.1 gm/dL (11.4-16.0)
[2022-08-16 07:55] LABS: African American GFR (CKD) >90 (>60 ml/min/1.73 sqM); Anion Gap 10 mmol/L; Blood Urea Nitrogen 16 mg/dL (7-17); Calcium 9.2 mg/dL (8.4-10.2); Carbon Dioxide 26 mmol/L (22-30); Chloride 102 mmol/L (98-107); Glucose 118 mg/dL (74-99); Magnesium 1.9 mg/dL (1.6-2.3); Non-African American GFR(CKD) >90 (>60 ml/min/1.73 sqM); Potassium 3.8 mmol/L (3.5-5.1); Sodium 138 mmol/L (137-145)
[2022-08-16] MEDS: LORATADINE 10 MG TAB PO SCH (08:15)
[2022-08-16] MEDS: ATORVASTATIN 20 MG TAB PO SCH (08:15)
[2022-08-16] MEDS: metFORMIN 500 MG TAB PO SCH ×2 (08:15→17:30)
[2022-08-16] MEDS: PANTOPRAZOLE 40 MG TABLET PO SCH ×2 (08:15→17:30)
[2022-08-16] MEDS: HEPARIN SODIUM,PORCINE/PF 5,000 UNIT/0.5 ML SYRINGE SQ SCH (08:15)
[2022-08-16] MEDS: FUROSEMIDE 20 MG TAB PO SCH (08:16)
[2022-08-16] MEDS: polyethylene glycoL 3350 17 GM POWD.PACK PO SCH (08:16)
[2022-08-16] MEDS: POTASSIUM CHLORIDE ER 10 MEQ TAB.ER.PRT PO SCH (08:16)
[2022-08-16 11:15] LABS: Glucose,Whole Blood 144 mg/dL (70-110)
[2022-08-16] MEDS ORDERED: ERTAPENEM 1 GM in SODIUM CHLORIDE 0.9% 50 ML IVPB SCH (11:30)
[2022-08-16] MEDS ORDERED: LIDOCAINE 1% INJ 10MG/ML (5 ML VIAL-PF) SQ ONE (14:04)
--- NOTE | 2022-08-16 14:35 | P.PN ---
Subjective Progress Note Date: 08/16/22 Principal diagnosis: Diabetic foot wound and cellulitis Patient is a 36-year-old female with a past medical history pertinent for diabetes mellitus patient did have a history of diabetic foot ulcer infection requiring amputation of the toes presenting to the hospital with right foot lateral border wound drainage and concerning for wound infection. On today's evaluation that is 08/16/2022 patient remains to be afebrile patient is breathing comfortably on room air, the patient denies chest pain shortness of cough, the patient denies having any nausea no vomiting no abdominal pain the patient pain to the right foot wound area has decreased in intensity Objective - Vital Signs Vital signs: Vital Signs Temp 98.4 F 08/16/22 06:57 Pulse 79 08/16/22 06:57 Resp 16 08/16/22 06:57 BP 139/76 08/16/22 06:57 Pulse Ox 98 08/16/22 06:57 FiO2 Intake & Output 08/15/22 08/16/22 08/16/22 18:59 06:59 18:59 Intake Total 250 240 Balance 250 240 Intake: Intake, IV Titration 250 Amount Ampicillin-Sulbactam 3 gm 200 In Sodium Chloride 0.9% 100 ml @ 200 mls/hr IVPB Q6H [facility] Rx#:[id number] DAPTOmycin 350 mg In 50 Sodium Chloride 0.9% 50 ml @ 100 mls/hr IVPB Q24H [facility] Rx#:[id number] Oral 240 Other: Voiding Method Toilet Toilet # Voids 1 - Exam GENERAL DESCRIPTION: Middle-aged female lying in bed in no distress RESPIRATORY SYSTEM: Unlabored breathing , decreased breath sounds at bases HEART: S1 S2 regular rate and rhythm , ABDOMEN: Soft , no tenderness EXTREMITIES: Bilateral foot wounds are currently dressed no drainage on the dressing - Labs CBC & Chem 7: 08/16/22 06:34 08/16/22 06:34 Labs: Abnormal Lab Results - Last 24 Hours (Table) 08/15/22 08/15/22 08/15/22 Range/Units 11:45 17:01 20:18 RBC (3.80-5.40) m/uL Hgb (11.4-16.0) gm/dL Hct (34.0-46.0) % MCV (80.0-100.0) fL RDW (11.5-15.5) % Glucose (74-99) mg/dL POC Glucose (mg/dL) 211 H 117 H 217 H (70-110) mg/dL 08/16/22 08/16/22 08/16/22 Range/Units 06:34 06:34 07:00 RBC 3.46 L (3.80-5.40) m/uL Hgb 9.1 L D (11.4-16.0) gm/dL Hct 27.4 L (34.0-46.0) % MCV 79.2 L (80.0-100.0) fL RDW 16.5 H (11.5-15.5) % Glucose 118 H (74-99) mg/dL POC Glucose (mg/dL) 123 H (70-110) mg/dL Microbiology - Last 24 Hours (Table) 08/11/22 02:15 Blood Culture - Final Blood 08/11/22 14:37 Gram Stain - Final Foot - Left Tissue Culture - Final Leclericia adecarboxylata Methicillin resist S. aureus Enterococcus faecalis Alpha Hemolytic Streptococcus 08/11/22 13:20 Anaerobic Culture - Final Foot - Right 08/11/22 14:28 Gram Stain - Preliminary Foot - Right Tissue Culture - Preliminary Gram Neg Bacilli Presumptive Staph aureus Coagulase Negative Staph Leclericia adecarboxylata Methicillin resist S. aureus Assessment and Plan (1) Diabetic foot infection Current Visit: No Status: Acute Code(s): E11.628 - TYPE 2 DIABETES MELLITUS WITH OTHER SKIN COMPLICATIONS; L08.9 - LOCAL INFECTION OF THE SKIN AND SUB CUTANEOUS TISSUE, UNSP SNOMED Code(s): 441271843 Plan: 1patient with her diabetic foot wound and history of cellulitis as well as osteomyelitis especially to the left foot lateral border area for the patient recently completed her antibiotic therapy now presenting to the hospital with worsening wound on the right foot lateral border and drainage concerning for diabetic foot wound infection and cellulitis and possible deep infection 2Pt has been evaluated by vascular surgery and S/P debridement and deep culture 3-patient culture did grew present to MRSA and some gram-negative with ID sensitivities pending 4Bone scan came back positive suspicious for possible osteomyelitis in the right foot and no abnormality described on the left foot site of previous Osteomyelitis and the patient did have elevated inflammatory markers with a sed rate of 112, PICC line advised six-week course of daptomycin and Invanz and close patient follow-up prescription were provided to the rifle case repairer Time with Patient: Less than 30
--- NOTE | 2022-08-16 15:04 | IR ---
PICC LINE PLACEMENT: HISTORY: Infection requiring long-term antibiotic therapy PROCEDURE: Ultrasound and fluoroscopic guidance of PICC line placement. COMPLICATIONS: None ANESTHESIA: 1. 1% Lidocaine locally. FINDINGS/TECHNIQUE: The procedure was explained to the patient. The risks, complications, benefits and alternatives were discussed and any questions were answered. Informed consent was obtained. The patient was placed supine on the fluoroscopic table and prepped and draped in the usual sterile fash ion. Utilizing a 21 gauge needle and sonographic and fluoroscopic guidance, access in the left ceph alic vein was achieved and there is placement of a 0.018 guidewire. The vein is patent. A 4-F sheat h was placed over the guidewire. The guidewire and dilator were removed and a 4-F. PICC line was selina kathleen through the sheath with the tip at the level of the SVC. The sheath was removed, the catheter wa s flushed and sutured into position. The patient was stable throughout the procedure and remained st able upon discharge from the Department of Radiology. The vein puncture was patent under ultrasound. A solis scale image was obtained to document patency of the vein punctured. All elements of the maximal barrier technique were utilized. FLUOROSCOPY TIME: DAP 0.032Gy cm2 IMPRESSION: Successful PICC line placement under ultrasound and fluoroscopic guidance.
[2022-08-16 15:10] VITALS: BMI 34.5
[2022-08-16] MEDS: HYDROcodone/APAP 5-325MG 1 EACH TAB PO PRN (15:49)
[2022-08-16 17:05] LABS: Glucose,Whole Blood 126 mg/dL (70-110)
--- NOTE | 2022-08-17 12:27 | P.DS ---
Providers Date of admission: 08/14/22 09:45 Expected date of discharge: 08/16/22 Attending physician: Guadalupe Albarran Consults: 08/11/22 04:45 Consult Physician Routine Consulting Provider: Darin Jaimes Consult Reason/Comments: diabetic foot ulcer Do you want consulting provider notified?: Yes 08/11/22 13:30 Consult Physician Routine Consulting Provider: Jerome Sainz Consult Reason/Comments: right foot wound , debridemnt and deep cultures Do you want consulting provider notified?: Yes [facility] Course: Final diagnosis Bilateral diabetic foot infection with worsening drainage, s/p surgical debridement History of diabetic foot infection and osteomyelitis status post left fifth toe amputation recently on outpatient IV antibiotics. Hyperglycemia with uncontrolled diabetes type 2 insulin-dependent Constipation resolved Gastroesophageal Reflux Disease Hypertension Hyperlipidemia Osteoarthritis DVT prophylaxis with heparin subcu GI prophylaxis Full Code Discharge disposition Patient is being discharged in a stable condition with guarded prognosis to home with home care. Patient will follow-up with Dr. Geovany Albarran in the outpatient setting upon discharge. Patient is to continue with IV antibiotics and has received a PICC line per ID recommendations close outpatient follow-up with vascular surgery and ID as scheduled. Total time taken is greater than 35 minutes. Hospital course This is a 36-year-old female who was recently admitted with bilateral diabetic foot infections with failure of outpatient treatment follows closely with vascular surgery Dr. Sainz in the outpatient setting underwent debridement and also bone scan which could not rule out osteomyelitis. Patient being followed by infectious disease with multiple bacteria growing on the culture including MRSA and has received a PICC line and will continue on daptomycin and Invanz per ID recommendations with close outpatient follow-up. Patient also to continue with home care and wound care with close outpatient follow-up with vascular surgery and dressing changes every 2 days or if becoming soiled. Patient has been cleared by consultations for discharge. Please refer to consultation notes for further HPI. Discussed and stressed the importance of diabetic management and Ticlid edema control for proper healing. Currently no reports of chest pain, shortness of breath, or palpitations. Patient is afebrile. No reports of nausea or vomiting and patient is tolerating diet. Patient will be discharged home today. Guarded prognosis. Physical exam: Gen: This is a 36-year-old female who is awake, alert and oriented 3, well- developed, well-nourished, obese. HEENT: Head is atraumatic, normocephalic. Pupils equal, round. Sclerae is anicteric. NECK: Supple. No JVD. No lymphadenopathy. No thyromegaly. LUNGS: Clear to auscultation. No wheezes or rhonchi. No intercostal retractions. HEART: Regular rate and rhythm. No murmur. ABDOMEN: Soft. Bowel sounds are present. No masses. No tenderness. EXTREMITIES: No pedal edema. No calf tenderness. Bilateral feet currently dressed and Nolberto wrap bivascular today and dry and intact NEUROLOGICAL: Patient is awake, alert and oriented x3. Cranial nerves 2 through 12 are grossly intact. Please refer to medication reconciliation sheet for a list of medications. The impression and plan of care has been dictated by Maya Del Rio, Nurse Practitioner as directed. Dr. Deion MD I have performed a history and examination and MDM of this patient, discussed the same with the dictator, and agree with the dictator's assessment and plan as written ,documented as a scribe. Based on total visit time, I have performed more than 50% of the visit. Patient Condition at Discharge: Good Plan - Discharge Summary New Discharge Prescriptions: New Benzocaine/Menthol Lozeng [Cepacol lozenge] 1 each MUCOUS MEM Q4HR PRN #20 lozenge PRN Reason: Sore Throat HYDROcodone/APAP 5-325MG [[place] 5-325] 1 each PO Q4HR PRN #6 tab PRN Reason: Pain Pantoprazole [Protonix] 40 mg PO AC-BID 15 Days #30 tab Acetaminophen Tab [Tylenol] 650 mg PO Q6HR PRN tab PRN Reason: Fever And/ Or Pain Docusate [Colace] 100 mg PO DAILY PRN cap PRN Reason: Constipation Magnesium Hydroxide [Milk of Magnesia Concentrate] 2,400 mg PO DAILY PRN ml PRN Reason: Constipation polyethylene glycoL 3350 [Miralax] 17 gm PO DAILY #30 packet Simethicone Chew [Mylicon Chew] 40 mg PO QID PRN tab PRN Reason: Bloating Continue medroxyPROGESTERone [Depo-Provera] 150 mg IM Q90D metroNIDAZOLE 500 mg PO TID Insulin Aspart [NovoLOG Flexpen] See Protocol SQ AC-TID metFORMIN HCL ER [Glucophage XR] 1,000 mg PO DAILY Potassium Chloride [Klor-Con M10] 10 meq PO DAILY Loratadine [Claritin] 10 mg PO DAILY Furosemide [Lasix] 20 mg PO DAILY Atorvastatin [Lipitor] 20 mg PO DAILY Insulin Glargine,Hum.rec.anlog [Lantus Solostar Pen] 65 units SQ HS Insulin Aspart [NovoLOG Flexpen] 10 units SQ AC-TID Dulaglutide [Trulicity] 0.75 mg SQ MO Discharge Medication List medroxyPROGESTERone [Depo-Provera] 150 mg IM Q90D 04/22/20 [History] Atorvastatin [Lipitor] 20 mg PO DAILY 06/30/22 [History] Dulaglutide [Trulicity] 0.75 mg SQ MO 06/30/22 [History] Insulin Aspart [NovoLOG Flexpen] 10 units SQ AC-TID 06/30/22 [History] Insulin Glargine,Hum.rec.anlog [Lantus Solostar Pen] 65 units SQ HS 06/30/22 [History] metroNIDAZOLE 500 mg PO TID 06/30/22 [History] Furosemide [Lasix] 20 mg PO DAILY 08/11/22 [History] Insulin Aspart [NovoLOG Flexpen] See Protocol SQ AC-TID 08/11/22 [History] Loratadine [Claritin] 10 mg PO DAILY 08/11/22 [History] Potassium Chloride [Klor-Con M10] 10 meq PO DAILY 08/11/22 [History] metFORMIN HCL ER [Glucophage XR] 1,000 mg PO DAILY 08/11/22 [History] Acetaminophen Tab [Tylenol] 650 mg PO Q6HR PRN tab 08/16/22 [Rx] Benzocaine/Menthol Lozeng [Cepacol lozenge] 1 each MUCOUS MEM Q4HR PRN #20 lozenge 08/16/22 [Rx] Docusate [Colace] 100 mg PO DAILY PRN cap 08/16/22 [Rx] HYDROcodone/APAP 5-325MG [[place] 5-325] 1 each PO Q4HR PRN #6 tab 08/16/22 [Rx] Magnesium Hydroxide [Milk of Magnesia Concentrate] 2,400 mg PO DAILY PRN ml 08/16/22 [Rx] Pantoprazole [Protonix] 40 mg PO AC-BID 15 Days #30 tab 08/16/22 [Rx] Simethicone Chew [Mylicon Chew] 40 mg PO QID PRN tab 08/16/22 [Rx] polyethylene glycoL 3350 [Miralax] 17 gm PO DAILY #30 packet 08/16/22 [Rx] Follow up Appointment(s)/Referral(s): Tracie Beach MD [Primary Care Provider] - 08/18/22 3:45 pm [facility] [NON-STAFF] - 1-2 days (wound center will call to follow up and set up appointment) Jerome Sainz MD [STAFF PHYSICIAN] - 08/23/22 10:00 am Darin Jaimes MD [STAFF PHYSICIAN] - 08/21/22 2:15 pm (appointment already scheduled) [facility] Nurse, [NON-STAFF] - 1 Week Patient Instructions/Handouts: Diabetic Foot Ulcers (ED), Diabetic Hyperglycemia (ED) Activity/Diet/Wound Care/Special Instructions: [facility] - iv antibiotics supplier -[phone] Follow-up with primary care provider on discharge continue local wound care Continue with antibiotics per ID recommendations Discharge Disposition: HOME WITH HOME HEALTH SERVICES
== END 2022-08-16 19:09 | disposition home health service (06) | DRG 420 ==
LOC: EC 00:21 → 5NMEDONC 04:43 → OBSVTOIN 08-14 09:45
PROVIDERS: ADMIT Hospitalist; ATTEND Hospitalist
PROC: 0JBR0ZZ Excision of Left Foot Subcutaneous Tissue and Fascia, Open Approach (ICD-10-PCS; principal; 2022-08-11)
PROC: 0JBQ0ZZ Excision of Right Foot Subcutaneous Tissue and Fascia, Open Approach (ICD-10-PCS; principal; 2022-08-11)
PROC: 02HV33Z Insertion of Infusion Device into Superior Vena Cava, Percutaneous Approach (ICD-10-PCS; 2022-08-16)
DX: E11.621 Type 2 diabetes mellitus with foot ulcer (principal); E11.628 Type 2 diabetes mellitus with other skin complications; E11.65 Type 2 diabetes mellitus with hyperglycemia; I10 Essential (primary) hypertension; J45.909 Unspecified asthma, uncomplicated; E78.5 Hyperlipidemia, unspecified; K21.9 Gastro-esophageal reflux disease without esophagitis; K59.00 Constipation, unspecified; L03.116 Cellulitis of left lower limb; L03.115 Cellulitis of right lower limb; E66.9 Obesity, unspecified; M19.90 Unspecified osteoarthritis, unspecified site; G43.909 Migraine, unspecified, not intractable, without status migrainosus; B95.62 Methicillin resistant Staphylococcus aureus infection as the cause of diseases classified elsewhere; Z68.34 Body mass index [BMI] 34.0-34.9, adult; Z89.421 Acquired absence of other right toe(s); Z89.422 Acquired absence of other left toe(s); Z85.43 Personal history of malignant neoplasm of ovary; Z90.721 Acquired absence of ovaries, unilateral; Z79.899 Other long term (current) drug therapy; Z79.4 Long term (current) use of insulin; Z79.84 Long term (current) use of oral hypoglycemic drugs; Z28.310 Unvaccinated for COVID-19; Z28.21 Immunization not carried out because of patient refusal; Z88.1 Allergy status to other antibiotic agents
CPT/HCPCS: 36415; 36573; 78315; 80048; 80053; 83605; 83735; 84443; 85025; 85610; 85652; 86140; 87040; 87070; 87075; 87077; 87186; 87205; 96361; 96374; 96375; 99285

== ENCOUNTER → 2022-09-25 | Outpatient (CLI) | payer OTHER ==
--- NOTE | 2022-09-25 16:23 | US ---
EXAMINATION TYPE: US venous doppler duplex UE LT DATE OF EXAM: 09/25/2022 COMPARISON: NONE CLINICAL INDICATION: Female, 36 years old with history of R60.9; edema patient has pic line in. SIDE PERFORMED: Left arm. Left Arm: Negative for DVT IMPRESSION: Grayscale, color doppler, spectral doppler imaging performed of the deep veins of the upper extremiti es. There is normal flow, compressibility and vascular waveforms.
== END | disposition home or self-care (01) ==
LOC: RADUSWWP 15:46
PROVIDERS: ATTEND Internal Medicine Infectious Disease
DX: R60.9 Edema, unspecified (principal)

== ENCOUNTER → 2022-12-27 | Outpatient (CLI) | payer OTHER ==
--- NOTE | 2022-12-28 08:23 | XR ---
EXAMINATION TYPE: XR tibia fibula LT DATE OF EXAM: 12/27/2022 CLINICAL HISTORY: pain TECHNIQUE: Three views of the left knee are obtained. COMPARISON: None. FINDINGS: There is no acute fracture/dislocation. Mild degenerative joint space narrowing involving all 3 compartments of the left knee. The overlying soft tissue appears unremarkable. IMPRESSION: There is no acute fracture or dislocation ICD 10 NO FRACTURE, INITIAL EVALUATION
== END | disposition home or self-care (01) ==
LOC: RADXRMAIN 16:50
PROVIDERS: ATTEND Family Medicine
DX: L97.529 Non-pressure chronic ulcer of other part of left foot with unspecified severity (principal); M25.662 Stiffness of left knee, not elsewhere classified

== ENCOUNTER → 2022-12-27 | Outpatient (CLI) | payer OTHER ==
--- NOTE | 2022-12-27 17:06 | US ---
EXAMINATION TYPE: US venous doppler duplex LE LT DATE OF EXAM: 12/27/2022 4:47 PM COMPARISON: 09/25/2022 CLINICAL INDICATION: Female, 37 years old with history of L97.529 NON-PRESSURE CHRONIC ULCER, M25.566 2 pain; lt sided ulcer at ankle, pain and hard area on skin SIDE PERFORMED: Left TECHNIQUE: The lower extremity deep venous system is examined utilizing real time linear array sonog garret with graded compression, doppler sonography and color-flow sonography. VESSELS IMAGED: Common Femoral Vein Deep Femoral Vein Greater Saphenous Vein * Femoral Vein Popliteal Vein Small Saphenous Vein * Proximal Calf Veins (* superficial vessels) Left Leg: Negative for DVT Lymphadenopathy noted bilateral groins, most prominent lymph node measured on left side: 4.8 x 5.3 x 2.5 cm. IMPRESSION: 1. No evidence for deep vein thrombosis of the left lower chimney. 2. Enlarged left inguinal lymph nodes clinical correlation advised consider tissue sampling.
== END | disposition home or self-care (01) ==
LOC: RADUSWWP 16:13
PROVIDERS: ATTEND Family Medicine
DX: M25.562 Pain in left knee (principal); L97.529 Non-pressure chronic ulcer of other part of left foot with unspecified severity; R59.0 Localized enlarged lymph nodes

== ENCOUNTER 2023-09-28 04:22 | Observation (INO) | payer OTHER ==
--- NOTE | 2023-09-28 04:50 | ED ---
Abdominal Pain HPI - General Chief Complaint: Abdominal Pain Stated Complaint: ABD Pain Time Seen by Provider: 09/28/23 04:24 Source: patient, EMS Mode of arrival: EMS Limitations: no limitations - History of Present Illness Initial Comments: Patient is a 37-year-old woman who states that she woke this morning with urge to have bowel movement. She went to the bathroom and had bowel movement associated with some red blood. She states that in close proximity she also vomited with a little bit of reddish appearing blood. MD Complaint: abdominal pain Onset/Timin -: hour(s) Location: RLQ Radiation: none Migration to: no migration Severity: severe Quality: sharp Consistency: constant Improves With: nothing Worsens With: nothing Associated Symptoms: nausea, vomiting, diarrhea, hematemesis, hematochezia - Related Data Home Medications Medication Instructions Recorded Confirmed medroxyPROGESTERone [Depo-Provera] 150 mg IM Q90D 04/22/20 08/11/22 Atorvastatin [Lipitor] 20 mg PO DAILY 06/30/22 08/11/22 Dulaglutide [Trulicity] 0.75 mg SQ MO 06/30/22 08/11/22 Insulin Aspart [NovoLOG Flexpen] 10 units SQ AC-TID 06/30/22 08/11/22 Insulin Glargine,Hum.rec.anlog 65 units SQ HS 06/30/22 08/11/22 [Lantus Solostar Pen] metroNIDAZOLE 500 mg PO TID 06/30/22 08/11/22 Furosemide [Lasix] 20 mg PO DAILY 08/11/22 08/11/22 Insulin Aspart [NovoLOG Flexpen] See Protocol SQ AC-TID 08/11/22 08/11/22 Loratadine [Claritin] 10 mg PO DAILY 08/11/22 08/11/22 Potassium Chloride [Klor-Con M10] 10 meq PO DAILY 08/11/22 08/11/22 metFORMIN HCL ER [Glucophage XR] 1,000 mg PO DAILY 08/11/22 08/11/22 Previous Rx's Medication Instructions Recorded Acetaminophen Tab [Tylenol] 650 mg PO Q6HR PRN tab 08/16/22 Benzocaine/Menthol Lozeng [Cepacol 1 each MUCOUS MEM Q4HR PRN #20 08/16/22 lozenge] lozenge Docusate [Colace] 100 mg PO DAILY PRN cap 08/16/22 HYDROcodone/APAP 5-325MG [[place] 1 each PO Q4HR PRN #6 tab 08/16/22 5-325] Magnesium Hydroxide [Milk of 2,400 mg PO DAILY PRN ml 08/16/22 Magnesia Concentrate] Pantoprazole [Protonix] 40 mg PO AC-BID 15 Days #30 tab 08/16/22 Simethicone Chew [Mylicon Chew] 40 mg PO QID PRN tab 08/16/22 polyethylene glycoL 3350 [Miralax] 17 gm PO DAILY #30 packet 08/16/22 Allergies Allergy/AdvReac Type Severity Reaction Status Date / Time vancomycin Allergy kidney Verified 08/11/22 08:02 problems Review of Systems ROS Statement: Those systems with pertinent positive or pertinent negative responses have been documented in the HPI. ROS Other: All systems not noted in ROS Statement are negative. Constitutional: Denies: fever, chills Respiratory: Denies: cough, dyspnea Cardiovascular: Denies: chest pain, palpitations, edema Gastrointestinal: Reports: abdominal pain, nausea, vomiting, diarrhea, hematemesis, hematochezia Genitourinary: Denies: dysuria, hematuria Musculoskeletal: Denies: back pain Skin: Denies: rash Neurological: Denies: headache, weakness Hematological/Lymphatic: Denies: easy bleeding Past Medical History Past Medical History: Asthma, Cancer, Diabetes Mellitus, Hyperlipidemia, Hypertension, Osteoarthritis (OA) Additional Past Medical History / Comment(s): Migraines. HX OVARIAN CA. Abdominal Pain- vomiting and diarrhea, ON/OFF. RECENT BLOOD IN URINE X2.; umbilical hernia History of Any Multi-Drug Resistant Organisms: None Reported Date of last positivie culture/infection: 08/11/22 MDRO Source:: Right Foot Past Surgical History: Section, Cholecystectomy, Orthopedic Surgery Additional Past Surgical History / Comment(s): Rt Oophorectomy, EGD, colonoscopy, toes amputated (second, fifth on left; fifth toe on right) Past Anesthesia/Blood Transfusion Reactions: No Reported Reaction Past Psychological History: No Psychological Hx Reported Smoking Status: Never smoker Past Alcohol Use History: None Reported Past Drug Use History: Marijuana - Past Family History Mother Family Medical History: No Reported History General Exam Limitations: no limitations General appearance: alert, in no apparent distress Head exam: Present: atraumatic, normocephalic Eye exam: Present: normal appearance. Absent: scleral icterus, conjunctival injection Neck exam: Present: normal inspection Respiratory exam: Present: normal lung sounds bilaterally. Absent: respiratory distress, wheezes, rales, rhonchi, stridor, accessory muscle use Cardiovascular Exam: Present: regular rate, normal rhythm, normal heart sounds. Absent: systolic murmur, diastolic murmur, rubs, gallop GI/Abdominal exam: Present: soft. Absent: distended, tenderness, guarding, rebound, rigid, mass Extremities exam: Present: normal inspection, normal capillary refill, other (External fixator left foot). Absent: pedal edema, calf tenderness Back exam: Present: normal inspection. Absent: CVA tenderness (R), CVA tenderness (L) Neurological exam: Present: alert Skin exam: Present: warm, dry, intact, normal color. Absent: rash Course Vital Signs 09/28/23 09/28/23 09/28/23 04:23 04:35 04:40 Temperature 98.3 F Pulse Rate 89 85 88 Respiratory 18 16 16 Rate Blood Pressure 147/88 147/88 147/88 O2 Sat by Pulse 98 98 96 Oximetry 09/28/23 09/28/23 09/28/23 04:50 05:00 05:10 Temperature Pulse Rate 85 Respiratory 19 Rate Blood Pressure 147/88 147/88 147/88 O2 Sat by Pulse 98 Oximetry 09/28/23 09/28/23 09/28/23 05:20 05:30 05:40 Temperature Pulse Rate 77 80 79 Respiratory 18 18 21 Rate Blood Pressure 147/88 147/88 147/88 O2 Sat by Pulse 98 98 98 Oximetry 09/28/23 09/28/23 09/28/23 05:50 06:00 06:10 Temperature Pulse Rate 79 76 78 Respiratory 19 13 17 Rate Blood Pressure 141/71 141/71 131/68 O2 Sat by Pulse 97 98 96 Oximetry 09/28/23 09/28/23 06:20 06:30 Temperature Pulse Rate 98 87 Respiratory 15 16 Rate Blood Pressure 131/68 131/68 O2 Sat by Pulse 98 98 Oximetry Medical Decision Making - Lab Data Result diagrams: 09/28/23 04:38 09/28/23 04:38 Lab Results 07/09/28/23 09/28/23 Range/Units 04:38 04:38 04:38 WBC 8.7 (3.8-10.6) k/uL RBC 3.40 L (3.80-5.40) m/uL Hgb 9.8 L (11.4-16.0) gm/dL Hct 29.5 L (34.0-46.0) % MCV 86.9 (80.0-100.0) fL MCH 28.7 (25.0-35.0) pg MCHC 33.1 (31.0-37.0) g/dL RDW 14.0 (11.5-15.5) % Plt Count 414 (150-450) k/uL MPV 7.8 Neutrophils % 70 % Lymphocytes % 20 % Monocytes % 4 % Eosinophils % 4 % Basophils % 0 % Neutrophils # 6.0 (1.3-7.7) k/uL Lymphocytes # 1.8 (1.0-4.8) k/uL Monocytes # 0.4 (0-1.0) k/uL Eosinophils # 0.4 (0-0.7) k/uL Basophils # 0.0 (0-0.2) k/uL PT 10.2 (10.0-12.5) sec INR 0.9 (<1.2) APTT 23.6 (22.0-30.0) sec Sodium (137-145) mmol/L Potassium (3.5-5.1) mmol/L Chloride (98-107) mmol/L Carbon Dioxide (22-30) mmol/L Anion Gap mmol/L BUN (7-17) mg/dL Creatinine (0.52-1.04) mg/dL Est GFR (CKD-EPI)AfAm (>60 ml/min/1.73 sqM) Est GFR (CKD-EPI)NonAf (>60 ml/min/1.73 sqM) Glucose (74-99) mg/dL Plasma Lactic Acid Harris (0.7-2.0) mmol/L Calcium (8.4-10.2) mg/dL Total Bilirubin (0.2-1.3) mg/dL AST (14-36) U/L ALT (4-34) U/L Alkaline Phosphatase (38-126) U/L Troponin I (0.000-0.034) ng/mL Total Protein (6.3-8.2) g/dL Albumin (3.5-5.0) g/dL Stool Occult Blood Positive H (Negative) Blood Type Blood Type Recheck Bld Type Recheck Status Antibody Screen Spec Expiration Date 09/28/23 09/28/23 09/28/23 Range/Units 04:38 04:38 04:38 WBC (3.8-10.6) k/uL RBC (3.80-5.40) m/uL Hgb (11.4-16.0) gm/dL Hct (34.0-46.0) % MCV (80.0-100.0) fL MCH (25.0-35.0) pg MCHC (31.0-37.0) g/dL RDW (11.5-15.5) % Plt Count (150-450) k/uL MPV Neutrophils % % Lymphocytes % % Monocytes % % Eosinophils % % Basophils % % Neutrophils # (1.3-7.7) k/uL Lymphocytes # (1.0-4.8) k/uL Monocytes # (0-1.0) k/uL Eosinophils # (0-0.7) k/uL Basophils # (0-0.2) k/uL PT (10.0-12.5) sec INR (<1.2) APTT (22.0-30.0) sec Sodium 137 (137-145) mmol/L Potassium 4.8 (3.5-5.1) mmol/L Chloride 111 H (98-107) mmol/L Carbon Dioxide 21 L (22-30) mmol/L Anion Gap 5 mmol/L BUN 35 H (7-17) mg/dL Creatinine 1.11 H (0.52-1.04) mg/dL Est GFR (CKD-EPI)AfAm 73 (>60 ml/min/1.73 sqM) Est GFR (CKD-EPI)NonAf 63 (>60 ml/min/1.73 sqM) Glucose 165 H (74-99) mg/dL Plasma Lactic Acid Harris 0.8 (0.7-2.0) mmol/L Calcium 9.0 (8.4-10.2) mg/dL Total Bilirubin 0.3 (0.2-1.3) mg/dL AST 17 (14-36) U/L ALT 8 (4-34) U/L Alkaline Phosphatase 120 (38-126) U/L Troponin I <0.012 (0.000-0.034) ng/mL Total Protein 6.5 (6.3-8.2) g/dL Albumin 3.1 L (3.5-5.0) g/dL Stool Occult Blood (Negative) Blood Type Blood Type Recheck Bld Type Recheck Status Antibody Screen Spec Expiration Date 09/28/23 Range/Units 05:03 WBC (3.8-10.6) k/uL RBC (3.80-5.40) m/uL Hgb (11.4-16.0) gm/dL Hct (34.0-46.0) % MCV (80.0-100.0) fL MCH (25.0-35.0) pg MCHC (31.0-37.0) g/dL RDW (11.5-15.5) % Plt Count (150-450) k/uL MPV Neutrophils % % Lymphocytes % % Monocytes % % Eosinophils % % Basophils % % Neutrophils # (1.3-7.7) k/uL Lymphocytes # (1.0-4.8) k/uL Monocytes # (0-1.0) k/uL Eosinophils # (0-0.7) k/uL Basophils # (0-0.2) k/uL PT (10.0-12.5) sec INR (<1.2) APTT (22.0-30.0) sec Sodium (137-145) mmol/L Potassium (3.5-5.1) mmol/L Chloride (98-107) mmol/L Carbon Dioxide (22-30) mmol/L Anion Gap mmol/L BUN (7-17) mg/dL Creatinine (0.52-1.04) mg/dL Est GFR (CKD-EPI)AfAm (>60 ml/min/1.73 sqM) Est GFR (CKD-EPI)NonAf (>60 ml/min/1.73 sqM) Glucose (74-99) mg/dL Plasma Lactic Acid Harris (0.7-2.0) mmol/L Calcium (8.4-10.2) mg/dL Total Bilirubin (0.2-1.3) mg/dL AST (14-36) U/L ALT (4-34) U/L Alkaline Phosphatase (38-126) U/L Troponin I (0.000-0.034) ng/mL Total Protein (6.3-8.2) g/dL Albumin (3.5-5.0) g/dL Stool Occult Blood (Negative) Blood Type AB Positive Blood Type Recheck AB Pos Bld Type Recheck Status No Antibody Screen NEGATIVE Spec Expiration Date 10/01/20232302 Disposition Clinical Impression: Abdominal pain, GI bleeding Disposition: ADMITTED IP TO THIS HOSP Condition: Good Is patient prescribed a controlled substance at d/c from ED?: No Referrals: Tracie Beach MD [Primary Care Provider] - 1-2 days
[2023-09-28] MEDS: ONDANSETRON 4 MG/2 ML VIAL IVP STA (04:52)
[2023-09-28] MEDS: PANTOPRAZOLE 40 MG/10 ML VIAL IVP STA (04:52)
[2023-09-28] MEDS: MORPHINE SULFATE 4 MG/ML SYRINGE IV STA ×2 (04:52→06:26)
[2023-09-28 05:09] LABS: Basophils % (A) 0 %; Eosinophils # (A) 0.4 k/uL (0-0.7); Eosinophils % (A) 4 %; HCT 29.5 % (34.0-46.0); HGB 9.8 gm/dL (11.4-16.0); Lymphocytes # (A) 1.8 k/uL (1.0-4.8); Lymphocytes % (A) 20 %; MCH 28.7 pg (25.0-35.0); MCHC 33.1 g/dL (31.0-37.0); MCV 86.9 fL (80.0-100.0); Mean Platelet Volume 7.8; Monocytes # (A) 0.4 k/uL (0-1.0); Monocytes % (A) 4 %; Neutrophils % (A) 70 %; Platelet Count 414 k/uL (150-450); WBC 8.7 k/uL (3.8-10.6)
[2023-09-28 05:18] LABS: INR 0.9 (<1.2); Partial Thromboplastin Time 23.6 sec (22.0-30.0); Prothrombin Time 10.2 sec (10.0-12.5)
[2023-09-28 05:22] LABS: ALT 8 U/L (4-34); AST 17 U/L (14-36); African American GFR (CKD) 73 (>60 ml/min/1.73 sqM); Albumin 3.1 g/dL (3.5-5.0); Alkaline Phosphatase 120 U/L (38-126); Anion Gap 5 mmol/L; Blood Urea Nitrogen 35 mg/dL (7-17); Carbon Dioxide 21 mmol/L (22-30); Chloride 111 mmol/L (98-107); Glucose 165 mg/dL (74-99); Non-African American GFR(CKD) 63 (>60 ml/min/1.73 sqM); Potassium 4.8 mmol/L (3.5-5.1); Sodium 137 mmol/L (137-145); Total Bilirubin 0.3 mg/dL (0.2-1.3); Total Protein 6.5 g/dL (6.3-8.2)
--- NOTE | 2023-09-28 05:51 | CT ---
EXAMINATION TYPE: CT abdomen pelvis wo con DATE OF EXAM: 09/28/2023 HISTORY: Pt presents with RLQ pain. abd pain woke pt up this morning, she then had bloody BM and vom it. CT DLP: 1669.2 mGycm. Automated Exposure Control for Dose Reduction was Utilized. TECHNIQUE: CT scan of the abdomen and pelvis is performed without oral or IV contrast. COMPARISON: NONE FINDINGS: Within the limitations of a non-contrast study, the following observations are made. LUNG BASES: No significant abnormality is appreciated. LIVER/GB: Gallbladder is not seen and presumed surgically absent. PANCREAS: No significant abnormality is seen. SPLEEN: No significant abnormality is seen. ADRENALS: There is 1.9 cm low dense left adrenal mass axial image 41 consistent with benign lipid herlinda h adenoma has Hounsfield units average 3. KIDNEYS: No renal stones or hydronephrosis is seen bilaterally. BOWEL: Diverticula throughout the left and sigmoid colon. No CT evidence for acute diverticulitis. No abnormal small or large bowel dilatation. Normal-appearing appendix from the cecum. GENITAL ORGANS:. Anteverted uterus projects to the right of midline. No free fluid in pelvis. LYMPH NODES: No greater than 1cm abdominal or pelvic lymph nodes are appreciated. OSSEOUS STRUCTURES: Moderate disc space narrowing with vacuum disc phenomenon at L3-L4 and L4-L5 leve ls. Posterior disc herniations efface the anterior thecal sac at these levels along with L5-S1 level. OTHER: Moderate to large sized fat-containing umbilical hernia essentially image 75. IMPRESSION: No CT evidence for acute appendicitis. No acute findings seen compatible for patient's sy mptoms of right lower quadrant abdominal pain.
[2023-09-28] MEDS ORDERED: NALOXONE 0.4 MG/ML 1 ML VIAL IV PRN (06:33)
[2023-09-28] MEDS ORDERED: SIMETHICONE 80 MG CHEWABLE PO PRN (06:36)
[2023-09-28] MEDS: SODIUM CHLORIDE 0.9% 1,000 ML IV SCH (06:49)
[2023-09-28] MEDS: polyethylene glycoL 3350 17 GM POWD.PACK PO SCH (07:46)
[2023-09-28] MEDS: FAMOTIDINE 20 MG TAB PO SCH (09:00)
[2023-09-28] MEDS: PANTOPRAZOLE 40 MG TABLET PO SCH (09:00)
--- NOTE | 2023-09-28 10:34 | P.CONS ---
History of Present Illness - Reason for Consult Consult date: 09/28/23 GI bleed Requesting physician: Ihsan Booker - Chief Complaint Abdominal pain and GI bleed - History of Present Illness This is a 37 year old female with multiple comorbidites including diabete mellitus, chronic anemia, lower extremity wound, left foot charcot foot s/p s urgery, asthma, ovarian cancer, hypertension and hyperlipidemia presented to the hospital with complaints of abdominal pain with nausea and vomiting. she woke up at 0300 with complaints of severe right lower quadrant pain, followed by nausea vomiting with "fire engine colored blood" times two and soft bowel movement which she states was cranberry colored. During her CT she states pain has now gone across her entire lower abdomen. CT abdomen and pelvis with no acute findings, shows diverticulosis of left and sigmoid colon without diverticulitis. Hg 9.8, platelets 414,000. She denies NSAID use, no anticoagulation. History of EGD and colonoscopy in December [address] Michele with findings of gastritis, hiatal hernia, esophagitis and colonoscopy with diverticulosis. SH has not had any further vomiting or BM since before she came to ED. Review of Systems A 14 point review systems was completed all pertinent positives and negatives as stated in the HPI. Past Medical History Past Medical History: Asthma, Cancer, Diabetes Mellitus, Hyperlipidemia, Hypertension, Osteoarthritis (OA) Additional Past Medical History / Comment(s): Migraines. HX OVARIAN CA. Abdominal Pain- vomiting and diarrhea, ON/OFF. RECENT BLOOD IN URINE X2.; umbilical hernia History of Any Multi-Drug Resistant Organisms: None Reported Year Discovered:: 08/11/22 MDRO Source:: Right Foot Past Surgical History: Section, Cholecystectomy, Orthopedic Surgery Additional Past Surgical History / Comment(s): Rt Oophorectomy, EGD, colonoscopy, toes amputated (second, fifth on left; fifth toe on right) Past Anesthesia/Blood Transfusion Reactions: No Reported Reaction Past Psychological History: No Psychological Hx Reported Smoking Status: Never smoker Past Alcohol Use History: None Reported Past Drug Use History: Marijuana - Past Family History Mother Family Medical History: No Reported History Medications and Allergies Home Medications Medication Instructions Recorded Confirmed Type Dulaglutide [Trulicity] 0.75 mg SQ MO 06/30/22 09/28/23 History Loratadine [Claritin] 10 mg PO DAILY 08/11/22 09/28/23 History Amoxicillin 500 mg PO TID 09/28/23 09/28/23 History Gabapentin [Neurontin] 100 mg PO QID PRN 09/28/23 09/28/23 History HYDROcodone/APAP 10-325MG [[place] 1 tab PO QID PRN 09/28/23 09/28/23 History 10-325] INSULIN LISPRO (humaLOG) [humaLOG] 8 units SQ AC-TID 09/28/23 09/28/23 History INSULIN LISPRO (humaLOG) [humaLOG] See Protocol SQ AC-TID 09/28/23 09/28/23 History Insulin Glargine [Lantus Vial] 30 unit SQ HS 09/28/23 09/28/23 History Magnesium Oxide [Mag-Ox] 400 mg PO DAILY 09/28/23 09/28/23 History amLODIPine [Norvasc] 10 mg PO DAILY 09/28/23 09/28/23 History lisinopriL [Zestril] 20 mg PO DAILY 09/28/23 09/28/23 History methocarbamoL [Robaxin] 500 mg PO QID PRN 09/28/23 09/28/23 History Allergies Allergy/AdvReac Type Severity Reaction Status Date / Time vancomycin AdvReac kidney Verified 09/28/23 07:20 problems Physical Exam Vitals: Vital Signs Temp Pulse Resp BP Pulse Ox 09/28/23 07:30 77 18 115/66 95 09/28/23 07:00 82 16 137/64 97 09/28/23 06:30 87 16 131/68 98 09/28/23 06:20 98 15 131/68 98 09/28/23 06:10 78 17 131/68 96 09/28/23 06:00 76 13 141/71 98 09/28/23 05:50 79 19 141/71 97 09/28/23 05:40 79 21 147/88 98 09/28/23 05:30 80 18 147/88 98 09/28/23 05:20 77 18 147/88 98 09/28/23 05:10 147/88 09/28/23 05:00 147/88 09/28/23 04:50 85 19 147/88 98 09/28/23 04:40 88 16 147/88 96 09/28/23 04:35 85 16 147/88 98 09/28/23 04:23 98.3 F 89 18 147/88 98 Intake and Output 09/27/23 09/28/23 09/28/23 22:59 06:59 14:59 Other: Weight 107.501 kg General appearance: The patient is alert, oriented, appears in no acute distress. HET: Head is normocephalic and atraumatic. Conjunctiva pink. Sclera anicteric. Neck: Supple without lymphadenopathy. Trachea midline. Heart: Regular. Lungs: Equal expansion, normal respiratory effort. Abdomen: Soft, obese, lower amdominal tenderness, nondistended. Skin: No rashes. No jaundice. Extremities: Normal skin color and turgor. Left foot in brace. Neurological: No focal deficits. Alert and oriented x3. Results CBC & Chem 7: 09/28/23 04:38 09/28/23 04:38 Labs: Abnormal Lab Results - Last 24 Hours (Table) 09/28/23 09/28/23 09/28/23 Range/Units 04:38 04:38 04:38 RBC 3.40 L (3.80-5.40) m/uL Hgb 9.8 L (11.4-16.0) gm/dL Hct 29.5 L (34.0-46.0) % Chloride 111 H (98-107) mmol/L Carbon Dioxide 21 L (22-30) mmol/L BUN 35 H (7-17) mg/dL Creatinine 1.11 H (0.52-1.04) mg/dL Glucose 165 H (74-99) mg/dL Albumin 3.1 L (3.5-5.0) g/dL Stool Occult Blood Positive H (Negative) Assessment and Plan (1) GI bleeding Narrative/Plan: 37 year old presenting with abdominal pain, nausea and vomiting with blood in vomit and stool. CT abdomen with no acute finding, but does show diverticulosi s. Possible etiology acute colitis likely infectious or ischemic. Symptoms have improved with no further bleeding. Will treat with symptomatic and supportive measures. Await recommendation from general surgery. No plans on endoscopy at this time, recommend outpatient colonoscopy in 1-2 weeks. Plan discussed with patient and is agreeable. Current Visit: Yes Status: Acute Code(s): K92.2 - GASTROINTESTINAL HEMORRHAG E, UNSPECIFIED SNOMED Code(s): 96398238 (2) Abdominal pain Current Visit: Yes Status: Acute Code(s): R10.9 - UNSPECIFIED ABDOMINAL PAIN SNOMED Code(s): 64549711 (3) Diabetes Current Visit: Yes Status: Acute Code(s): E11.9 - TYPE 2 DIABETES MELLITUS WITHOUT COMPLICATIONS SNOMED Code(s): 38845926 (4) Obesity Current Visit: Yes Status: Acute Code(s): E66.9 - OBESITY, UNSPECIFIED SNOMED Code(s): 185766366 (5) Hypertension Current Visit: Yes Status: Acute Code(s): I10 - ESSENTIAL (PRIMARY) HYPERTENSION SNOMED Code(s): 66445707 (6) Chronic wound Current Visit: Yes Status: Acute Code(s): T14.8XXA - OTHER INJURY OF UNSPECIFIED BODY REGION, INITIAL ENCOUNTER SNOMED Code(s): 47236625793913 Plan: 1. Continue symptomatic and supportive care 2. Transfuse for Hg less than 7 3. Protonix 40 mg BID 4. May have clear liquid diet if cleared by surgery 5. No plans for endoscopy at this time, recommend outpatient colonoscopy in 1-2 weeks Thank you for this consultation. We will sign off at this time. There will be no further GI coverage in hospital over the weekend and next week.
[2023-09-28] MEDS ORDERED: GABAPENTIN 100 MG CAP PO PRN (11:54)
[2023-09-28 12:36] LABS: Glucose,Whole Blood 148 mg/dL (70-110)
[2023-09-28] MEDS: INSULIN ASPART (NovoLOG) 100 UNIT/ML VIAL SQ SCH ×2 (12:45)
--- NOTE | 2023-09-28 13:14 | P.GSCN ---
History of Present Illness Consult date: 09/28/23 History of present illness: CHIEF COMPLAINT: abdominal pain HISTORY OF PRESENT ILLNESS: This is a 37-year-old female presented to the hospital with complaints of abdominal pain across the lower abdomen. patient also started around 3 AM she went to bathroom and feels that she passed out twice. While she was using the bathroom she had 2 episodes of bright red blood per rectum. patient described her stools as cranberry red in color. She also had 2 emesis with bright red blood.patient reports no symptoms like this prior. She does have a known history of diverticulosis. She denies being on any blood thinners or NSAID use. She had a computed tomography scan abdomen and pelvis which was negative for acute changes. She had her gallbladder removed in 2014. Last EGD and colonoscopy 2014 had revealed gastritis hilar hernia and diverticulosis. Hemoglobin 9.8. PAST MEDICAL HISTORY: Charcot foot with rods and scheduled for another surgery next week. Asthma, Ovarian Cancer, Diabetes Mellitus, Hyperlipidemia, Hypertension, Osteoarthritis (OA) PAST SURGICAL HISTORY: , cholecystectomy, orthopedic surgeon MEDICATIONS: See below ALLERGIES: See below SOCIAL HISTORY: No illicit drug use. REVIEW OF SYSTEMS: CONSTITUTIONAL: Denies fever or chills. HEENT: Denies blurred vision, vision changes, or eye pain. Denies hemoptysis CARDIOVASCULAR: Denies chest pain or pressure. RESPIRATORY: No shortness of breath. GASTROINTESTINAL: See HPI for pertinent findings HEMATOLOGIC: Denies bleeding disorders. GENITOURINARY: Denies any blood in urine or increased urinary frequency. SKIN: Denies pruitis. Denies rash. PHYSICAL EXAM: VITAL SIGNS: Reviewed GENERAL: Well-developed in no acute distress. HEENT: No sclera icterus. Extraocular movements grossly intact. Moist buccal mucosa. Head is atraumatic, normocephalic. No nasal drainage. ABDOMEN: Soft. obese. Nondistended. tenderness across lower abdomen NEUROLOGIC: Alert and oriented. Cranial nerves II through XII grossly intact. LABORATORY DATA: WBC8.7 HGB 9.8 Plt 414 Na 137 K4.8 BUN 35 Cr 1.11 stool for occult blood positive IMAGING: No evidence for ascites. No acute findings seen compatible for patient's symptoms in the right lower quadrant abdominal pain. Diverticulosis ASSESSMENT: 1. Acute GI bleed with bright red stools and bright red blood in emesis 2. Possible diverticular bleed PLAN: -Patient scheduled for EGD and colonoscopy on Sunday with Dr. trudy Mccray for regular diet today -Continue to monitor hemoglobin -Continue to monitor for any signs or symptoms of bleeding -Change Protonix to IV Physician Joss House Keeper note has been reviewed by physician. Signing provider agrees with the documented findings, assessment, and plan of care. Past Medical History Past Medical History: Asthma, Cancer, Diabetes Mellitus, Hyperlipidemia, Hypertension, Osteoarthritis (OA) Additional Past Medical History / Comment(s): Migraines. HX OVARIAN CA. Abdominal Pain- vomiting and diarrhea, ON/OFF. RECENT BLOOD IN URINE X2.; umbilical hernia History of Any Multi-Drug Resistant Organisms: None Reported Year Discovered:: 08/11/22 MDRO Source:: Right Foot Past Surgical History: Section, Cholecystectomy, Orthopedic Surgery Additional Past Surgical History / Comment(s): Rt Oophorectomy, EGD, colonoscopy, toes amputated (second, fifth on left; fifth toe on right) Past Anesthesia/Blood Transfusion Reactions: No Reported Reaction Past Psychological History: No Psychological Hx Reported Smoking Status: Never smoker Past Alcohol Use History: None Reported Past Drug Use History: Marijuana - Past Family History Mother Family Medical History: No Reported History Medications and Allergies Home Medications Medication Instructions Recorded Confirmed Type Dulaglutide [Trulicity] 0.75 mg SQ MO 06/30/22 09/28/23 History Loratadine [Claritin] 10 mg PO DAILY 08/11/22 09/28/23 History Amoxicillin 500 mg PO TID 09/28/23 09/28/23 History Gabapentin [Neurontin] 100 mg PO QID PRN 09/28/23 09/28/23 History HYDROcodone/APAP 10-325MG [[place] 1 tab PO QID PRN 09/28/23 09/28/23 History 10-325] INSULIN LISPRO (humaLOG) [humaLOG] 8 units SQ AC-TID 09/28/23 09/28/23 History INSULIN LISPRO (humaLOG) [humaLOG] See Protocol SQ AC-TID 09/28/23 09/28/23 History Insulin Glargine [Lantus Vial] 30 unit SQ HS 09/28/23 09/28/23 History Magnesium Oxide [Mag-Ox] 400 mg PO DAILY 09/28/23 09/28/23 History amLODIPine [Norvasc] 10 mg PO DAILY 09/28/23 09/28/23 History lisinopriL [Zestril] 20 mg PO DAILY 09/28/23 09/28/23 History methocarbamoL [Robaxin] 500 mg PO QID PRN 09/28/23 09/28/23 History Allergies Allergy/AdvReac Type Severity Reaction Status Date / Time vancomycin AdvReac kidney Verified 09/28/23 07:20 problems Surgical - Exam Vital Signs Temp Pulse Resp BP Pulse Ox 98.3 F 89 18 147/88 98 09/28/23 04:23 09/28/23 04:23 09/28/23 04:23 09/28/23 04:23 09/28/23 04:23 Results - Labs 09/28/23 04:38 09/28/23 04:38 Abnormal Lab Results - Last 24 Hours (Table) 09/28/23 09/28/23 09/28/23 Range/Units 04:38 04:38 04:38 RBC 3.40 L (3.80-5.40) m/uL Hgb 9.8 L (11.4-16.0) gm/dL Hct 29.5 L (34.0-46.0) % Chloride 111 H (98-107) mmol/L Carbon Dioxide 21 L (22-30) mmol/L BUN 35 H (7-17) mg/dL Creatinine 1.11 H (0.52-1.04) mg/dL Glucose 165 H (74-99) mg/dL Albumin 3.1 L (3.5-5.0) g/dL Stool Occult Blood Positive H (Negative) Diabetes panel 09/28/23 Range/Units 04:38 Sodium 137 (137-145) mmol/L Potassium 4.8 (3.5-5.1) mmol/L Chloride 111 H (98-107) mmol/L Carbon Dioxide 21 L (22-30) mmol/L BUN 35 H (7-17) mg/dL Creatinine 1.11 H (0.52-1.04) mg/dL Glucose 165 H (74-99) mg/dL Calcium 9.0 (8.4-10.2) mg/dL AST 17 (14-36) U/L ALT 8 (4-34) U/L Alkaline Phosphatase 120 (38-126) U/L Total Protein 6.5 (6.3-8.2) g/dL Albumin 3.1 L (3.5-5.0) g/dL Calcium panel 09/28/23 Range/Units 04:38 Calcium 9.0 (8.4-10.2) mg/dL Albumin 3.1 L (3.5-5.0) g/dL Pituitary panel 09/28/23 Range/Units 04:38 Sodium 137 (137-145) mmol/L Potassium 4.8 (3.5-5.1) mmol/L Chloride 111 H (98-107) mmol/L Carbon Dioxide 21 L (22-30) mmol/L BUN 35 H (7-17) mg/dL Creatinine 1.11 H (0.52-1.04) mg/dL Glucose 165 H (74-99) mg/dL Calcium 9.0 (8.4-10.2) mg/dL Adrenal panel 09/28/23 Range/Units 04:38 Sodium 137 (137-145) mmol/L Potassium 4.8 (3.5-5.1) mmol/L Chloride 111 H (98-107) mmol/L Carbon Dioxide 21 L (22-30) mmol/L BUN 35 H (7-17) mg/dL Creatinine 1.11 H (0.52-1.04) mg/dL Glucose 165 H (74-99) mg/dL Calcium 9.0 (8.4-10.2) mg/dL Total Bilirubin 0.3 (0.2-1.3) mg/dL AST 17 (14-36) U/L ALT 8 (4-34) U/L Alkaline Phosphatase 120 (38-126) U/L Total Protein 6.5 (6.3-8.2) g/dL Albumin 3.1 L (3.5-5.0) g/dL
[2023-09-28] MEDS: PANTOPRAZOLE 40 MG/10 ML VIAL IVP SCH ×2 (14:49→21:05)
[2023-09-28] MEDS: HYDROcodone/APAP 10-325MG 1 EACH TAB PO PRN (14:52)
--- NOTE | 2023-09-28 15:17 | P.HPIM ---
History of Present Illness H&P Date: 09/28/23 History of present illness; 37 year old female who presented to the emergency department with abdominal pain, nausea/vomiting with blood in her stool and vomiting. She awoke this morning with the urge to have a bowel movement and proceeded to have a bowel movement with red blood in the toilet. Additionally, she had an episode where she vomited blood while making her way to the bathroom, which she also describes as having been a bright red in color. She also reports having had 2 episodes where she feels as though she may have passed out during this time. Her pain was localized to the right lower quadrant, which was then followed by the nausea and vomiting, "fire engine red" colored blood twice and a soft bowel movement with which she noted " cranberry juicecranberry juice" colored blood in the toilet. States that currently the pain spreads across the entirity of her lower abdomen." Her Hgb 9.8, platelets 414,000. She had a CT Abdomen/Pelvis done which showed diverticulosis of the left side and sigmoid colon without any signs of diverticulitis. She has had no further episodes of nausea, vomiting or a bowel movement since arriving in the emergency department. Initial lab work done in the ER showed Hbg 9.8, Hct 29.5, BUN 35, Cr 1.11, Glucose 165, Albumin 3.1 and positive stool occult blood. CT Abdomen/Pelvis showed no CT evidence for acute appendicitis, no acute findings seen compatible for patient's symptoms of right lower quadrant abdominal pain. Diverticula throughout the left and sigmoid colon without CT evidence of diverticulitis. Patient admitted to internal medicine service REVIEW OF SYSTEMS: CONSTITUTIONAL: No fever, no malaise, no fatigue. HEENT: No recent visual problems or hearing problems. Denied any sore throat. CARDIOVASCULAR: No chest pain, orthopnea, PND, no palpitations, no syncope. PULMONARY: No shortness of breath, no cough, no hemoptysis. GASTROINTESTINAL: See stated above in HPI NEUROLOGICAL: No headaches, no weakness, no numbness. HEMATOLOGICAL: Denies any bleeding or petechiae. GENITOURINARY: Denies any burning micturition, frequency, or urgency. MUSCULOSKELETAL/RHEUMATOLOGICAL: Denies any joint pain, swelling, or any muscle pain. ENDOCRINE: Denies any polyuria or polydipsia. The rest of the 14-point review of systems is negative. PHYSICAL EXAMINATION: GENERAL: The patient is alert and oriented x3, not in any acute distress. Well developed, well nourished. HEENT: Pupils are round and equally reacting to light. EOMI. No scleral icterus. No conjunctival pallor. Normocephalic, atraumatic. No pharyngeal erythema. No thyromegaly. CARDIOVASCULAR: S1 and S2 present. No murmurs, rubs, or gallops. PULMONARY: Chest is clear to auscultation, no wheezing or crackles. ABDOMEN: Soft, nondistended, normoactive bowel sounds. lower abdominal tenderness. MUSCULOSKELETAL: No joint swelling or deformity. EXTREMITIES: No cyanosis, clubbing, or pedal edema. Left foot in a wrap and brace. NEUROLOGICAL: Gross neurological examination did not reveal any focal deficits. SKIN: No rashes. Assessment and plan #Acute GI Bleed with bright red blood with stools and emesis - Patient scheduled for EGD and colonoscopy on Sunday with Dr. Michele - Rule out/in upper vs. lower GI bleed - Monitor hemoglobin; transfuse for less than 7 hgb - Monitor signs and symptoms of bleeding - Placed on Protonix 40mg IV BID #Diabetes - Will continue her NovoLog, Trulicity and her Lantus is switched to Levemir in facility - Accuchecks ordered Q6 to monitor her glucose #Chronic Wound - Charcot's diabetic foot - Currently undergoing surgical attempt to preserve her foot Monitor vital signs Monitor CBC Monitor CMP Labs and medication were reviewed. Continue with symptomatic treatment. Resume home medication. Monitor labs and vitals. DVT and GI prophylaxis. Further recommendations as per clinical course of the patient Dictation was produced using [employer] dictation software. please excuse any grammatical, word or spelling errors. Past Medical History Past Medical History: Asthma, Cancer, Diabetes Mellitus, Hyperlipidemia, Hypertension, Osteoarthritis (OA) Additional Past Medical History / Comment(s): Migraines. HX OVARIAN CA. Abdominal Pain- vomiting and diarrhea, ON/OFF. RECENT BLOOD IN URINE X2.; umbilical hernia History of Any Multi-Drug Resistant Organisms: None Reported Date of last positivie culture/infection: 08/11/22 MDRO Source:: Right Foot Past Surgical History: Section, Cholecystectomy, Orthopedic Surgery Additional Past Surgical History / Comment(s): Rt Oophorectomy, EGD, colonoscopy, toes amputated (second, fifth on left; fifth toe on right) Past Anesthesia/Blood Transfusion Reactions: No Reported Reaction Past Psychological History: No Psychological Hx Reported Smoking Status: Never smoker Past Alcohol Use History: None Reported Past Drug Use History: Marijuana - Past Family History Mother Family Medical History: No Reported History Medications and Allergies Home Medications Medication Instructions Recorded Confirmed Type Dulaglutide [Trulicity] 0.75 mg SQ MO 06/30/22 09/28/23 History Loratadine [Claritin] 10 mg PO DAILY 08/11/22 09/28/23 History Amoxicillin 500 mg PO TID 09/28/23 09/28/23 History Gabapentin [Neurontin] 100 mg PO QID PRN 09/28/23 09/28/23 History HYDROcodone/APAP 10-325MG [[place] 1 tab PO QID PRN 09/28/23 09/28/23 History 10-325] INSULIN LISPRO (humaLOG) [humaLOG] 8 units SQ AC-TID 09/28/23 09/28/23 History INSULIN LISPRO (humaLOG) [humaLOG] See Protocol SQ AC-TID 09/28/23 09/28/23 History Insulin Glargine [Lantus Vial] 30 unit SQ HS 09/28/23 09/28/23 History Magnesium Oxide [Mag-Ox] 400 mg PO DAILY 09/28/23 09/28/23 History amLODIPine [Norvasc] 10 mg PO DAILY 09/28/23 09/28/23 History lisinopriL [Zestril] 20 mg PO DAILY 09/28/23 09/28/23 History methocarbamoL [Robaxin] 500 mg PO QID PRN 09/28/23 09/28/23 History Allergies Allergy/AdvReac Type Severity Reaction Status Date / Time vancomycin AdvReac kidney Verified 09/28/23 07:20 problems Physical Exam Vitals: Vital Signs Temp Pulse Pulse Resp BP BP Pulse Ox 09/28/23 13:40 98.8 F 73 17 137/76 98 09/28/23 10:00 68 18 121/76 97 09/28/23 09:30 75 18 141/84 98 09/28/23 09:00 79 18 124/72 97 09/28/23 08:30 75 18 113/75 98 09/28/23 08:00 75 18 120/68 97 09/28/23 07:30 77 18 115/66 95 09/28/23 07:00 82 16 137/64 97 09/28/23 06:30 87 16 131/68 98 09/28/23 06:20 98 15 131/68 98 09/28/23 06:10 78 17 131/68 96 09/28/23 06:00 76 13 141/71 98 09/28/23 05:50 79 19 141/71 97 09/28/23 05:40 79 21 147/88 98 09/28/23 05:30 80 18 147/88 98 09/28/23 05:20 77 18 147/88 98 09/28/23 05:10 147/88 09/28/23 05:00 147/88 09/28/23 04:50 85 19 147/88 98 09/28/23 04:40 88 16 147/88 96 09/28/23 04:35 85 16 147/88 98 09/28/23 04:23 98.3 F 89 18 147/88 98 Intake and Output 09/27/23 09/28/23 09/28/23 22:59 06:59 14:59 Other: Weight 107.501 kg 107.501 kg Results CBC & Chem 7: 09/28/23 04:38 09/28/23 04:38 Labs: Abnormal Lab Results - Last 24 Hours (Table) 09/28/23 09/28/23 09/28/23 Range/Units 04:38 04:38 04:38 RBC 3.40 L (3.80-5.40) m/uL Hgb 9.8 L (11.4-16.0) gm/dL Hct 29.5 L (34.0-46.0) % Chloride 111 H (98-107) mmol/L Carbon Dioxide 21 L (22-30) mmol/L BUN 35 H (7-17) mg/dL Creatinine 1.11 H (0.52-1.04) mg/dL Glucose 165 H (74-99) mg/dL POC Glucose (mg/dL) (70-110) mg/dL Albumin 3.1 L (3.5-5.0) g/dL Stool Occult Blood Positive H (Negative) 09/28/23 Range/Units 12:35 RBC (3.80-5.40) m/uL Hgb (11.4-16.0) gm/dL Hct (34.0-46.0) % Chloride (98-107) mmol/L Carbon Dioxide (22-30) mmol/L BUN (7-17) mg/dL Creatinine (0.52-1.04) mg/dL Glucose (74-99) mg/dL POC Glucose (mg/dL) 148 H (70-110) mg/dL Albumin (3.5-5.0) g/dL Stool Occult Blood (Negative)
[2023-09-28 17:24] LABS: Glucose,Whole Blood 164 mg/dL (70-110)
[2023-09-28 20:46] LABS: Glucose,Whole Blood 177 mg/dL (70-110)
[2023-09-28] MEDS: INSULIN DETEMIR (LEVEMIR) 100 UNIT/ML SYR SQ SCH (21:05)
[2023-09-28] MEDS: MORPHINE SULFATE 4 MG/ML SYRINGE IV PRN (22:16)
[2023-09-28] MEDS: ONDANSETRON 4 MG/2 ML VIAL IVP PRN (22:17)
[2023-09-29 02:26] LABS: Glucose,Whole Blood 108 mg/dL (70-110)
[2023-09-29 06:19] LABS: Glucose,Whole Blood 105 mg/dL (70-110)
[2023-09-29] MEDS: lisinopriL 20 MG TAB PO SCH (08:13)
[2023-09-29 09:40] LABS: HCT 25.2 % (37.2-46.3); MCH 28.3 pg (27.0-32.0); MCHC 31.7 g/dL (32.0-37.0); Mean Platelet Volume 10.9 FL (9.5-12.2); NRBC Per 100 WBC 0 X 10*3/uL (0.00-0.01); Platelet Count 337 X 10*3/uL (140-440); RBC 2.83 X 10*6/uL (4.10-5.20); RDW 13.5 % (11.5-14.5); WBC 7.04 X 10*3/uL (4.50-10.00)
[2023-09-29 09:55] LABS: BUN/Creat Ratio 30.09 Ratio (12.00-20.00); Blood Urea Nitrogen 33.1 mg/dL (9.0-27.0); Calcium 8.6 mg/dL (8.7-10.3); Carbon Dioxide 19.9 mmol/L (21.6-31.8); Chloride 111 mmol/L (96-109); Glucose 78 mg/dL (70-110); Potassium 5.2 mmol/L (3.5-5.5); Sodium 138 mmol/L (135-145)
--- NOTE | 2023-09-29 11:36 | P.PN ---
Subjective Progress Note Date: 09/29/23 37 year old female who presented to the emergency department with abdominal pain, nausea/vomiting with blood in her stool and vomiting. She awoke this morning with the urge to have a bowel movement and proceeded to have a bowel movement with red blood in the toilet. Additionally, she had an episode where s he vomited blood while making her way to the bathroom, which she also describes as having been a bright red in color. She also reports having had 2 episodes where she feels as though she may have passed out during this time. Her pain was localized to the right lower quadrant, which was then followed by the nausea and vomiting, "fire engine red" colored blood twice and a soft bowel movement with which she noted " cranberry juicecranberry juice" colored blood in the toilet. States that currently the pain spreads across the entirity of her lower abdomen." Her Hgb 9.8, platelets 414,000. She had a CT Abdomen/Pelvis done which showed diverticulosis of the left side and sigmoid colon without any signs of diverticulitis. She has had no further episodes of nausea, vomiting or a bowel movement since arriving in the emergency department. Initial lab work done in the ER showed Hbg 9.8, Hct 29.5, BUN 35, Cr 1.11, Glucose 165, Albumin 3.1 and positive stool occult blood. CT Abdomen/Pelvis showed no CT evidence for acute appendicitis, no acute findings seen compatible for patient's symptoms of right lower quadrant abdominal pain. Diverticula throughout the left and sigmoid colon without CT evidence of diverticulitis. 09/28 -patient seen at bedside today. Glucose POC as of 6:17 AM was 105, patient received 30 units of Levemir and 2 units of NovoLog at 9:05 PM on 09/27. She did receive 4 mg of morphine at 10:16 PM on 09/27 for discomfort as well as 4 mg of Zofran. She states she had her first bowel movement last night since the incident where she saw the blood in her stool, states she thinks she saw some blood with her bowel movement today, however states if there was it was not very much. Seems to be improving however patient's hemoglobin dropped from 9.8 on 09/27 to 8.0 today on 09/28. Will need to be monitored closely. She is resting comfortably in bed, mentioned she still has some lower abdominal pain and discomfort but otherwise has no current complaints. Labs drawn today - Hgb 8.0, Hct 25.2, MCHC 31.7, BUN 33.1, calcium 8.6 REVIEW OF SYSTEMS: CONSTITUTIONAL: No fever, no malaise,. CARDIOVASCULAR: No chest pain, no palpitations, no syncope. PULMONARY: No shortness of breath, no cough, GASTROINTESTINAL: No diarrhea, no nausea, no vomiting, no abdominal pain. NEUROLOGICAL: No headaches, no weakness, PHYSICAL EXAMINATION: GENERAL: The patient is alert and oriented x3, not in any acute distress. Well developed, well nourished. HEENT: Pupils are round and equally reacting to light. EOMI. No scleral icterus. No conjunctival pallor. Normocephalic, atraumatic. No pharyngeal erythema. No thyromegaly. CARDIOVASCULAR: S1 and S2 present. No murmurs, rubs, or gallops. PULMONARY: Chest is clear to auscultation, no wheezing or crackles. ABDOMEN: Soft, nontender, nondistended, normoactive bowel sounds. No palpable organomegaly. MUSCULOSKELETAL: No joint swelling or deformity. EXTREMITIES: No cyanosis, clubbing, or pedal edema. Left foot in a wrap and brace. NEUROLOGICAL: Gross neurological examination did not reveal any focal deficits. Awake, alert, oriented x3. SKIN: No rashes. Assessment and plan #Acute GI Bleed with bright red blood with stools and emesis - Patient scheduled for EGD and colonoscopy on Sunday with Dr. Michele - Rule out/in upper vs. lower GI bleed - Monitor hemoglobin; transfuse for less than 7 hgb - Monitor signs and symptoms of bleeding - Placed on Protonix 40mg IV BID #Diabetes - Will continue her NovoLog, Trulicity and her Lantus is switched to Levemir in facility - Accuchecks ordered Q6 to monitor her glucose #Chronic Wound - Charcot's diabetic foot - Currently undergoing surgical attempt to preserve her foot Monitor vital signs Monitor CBC Monitor BMP In regards to acute anemia,continue to monitor H&H transfuse for hemodynamic instability or hemoglobin less than 7 Labs and medication were reviewed. Continue with symptomatic treatment. Resume home medication. Monitor labs and vitals. DVT and GI prophylaxis. Further re commendations as per clinical course of the patient Dictation was produced using dragon dictation software. please excuse any grammatical, word or spelling errors. Objective - Vital Signs Vital signs: Vital Signs Temp 98.7 F 09/29/23 02:00 Pulse 65 09/29/23 02:00 Resp 16 09/29/23 02:00 BP 130/79 09/29/23 02:00 Pulse Ox 98 09/29/23 02:00 FiO2 Intake & Output 09/28/23 09/29/23 09/29/23 18:59 06:59 18:59 Intake Total 480 Balance 480 Weight 107.501 kg Intake: Oral 480 Other: Voiding Method Bedside Commode # Voids 2 # Bowel Movements 1 - Labs CBC & Chem 7: 09/29/23 04:07 09/29/23 04:07 Labs: Abnormal Lab Results - Last 24 Hours (Table) 09/28/23 09/28/23 09/28/23 Range/Units 12:35 17:22 20:45 POC Glucose (mg/dL) 148 H 164 H 177 H (70-110) mg/dL
[2023-09-29 12:10] LABS: Glucose,Whole Blood 194 mg/dL (70-110)
--- NOTE | 2023-09-29 15:58 | P.PN ---
Progress Note - Text Progress Note Date: 09/29/23 CHIEF COMPLAINT: GI Bleed HISTORY OF PRESENT ILLNESS: NAEO PHYSICAL EXAM: VITAL SIGNS: Reviewed. GENERAL: no acute distress. ABDOMEN: Soft. Nondistended. Non-tender NEUROLOGIC: Alert and oriented. Cranial nerves II through XII grossly intact. ASSESSMENT: 1. Acute GI bleed with bright red stools and bright red blood in emesis 2. Possible diverticular bleed PLAN: -Patient scheduled for EGD and colonoscopy on Sunday with Dr. Michele -Prince for regular diet -Continue to monitor hemoglobin -Continue to monitor for any signs or symptoms of bleeding -Change Protonix to IV
[2023-09-29 17:16] LABS: Glucose,Whole Blood 132 mg/dL (70-110)
[2023-09-29 20:53] LABS: Glucose,Whole Blood 180 mg/dL (70-110)
[2023-09-30 06:00] LABS: Glucose,Whole Blood 95 mg/dL (70-110)
[2023-09-30 07:41] LABS: Glucose,Whole Blood 97 mg/dL (70-110)
[2023-09-30] MEDS: PEG 3350 (236 GM/BTL) + LYTES 4,000 ML BOTTLE PO ONE (08:10)
--- NOTE | 2023-09-30 10:36 | P.PN ---
Subjective Progress Note Date: 09/30/23 Patient main stable. She is currently starting her bowel prep. On exam vital signs are stable. Abdomen soft. Patient scheduled for endoscopy in the a.m. Objective - Vital Signs Vital signs: Vital Signs Temp 98.0 F 09/30/23 07:00 Pulse 71 09/30/23 07:00 Resp 14 09/30/23 07:00 BP 156/96 09/30/23 07:00 Pulse Ox 99 09/30/23 07:00 FiO2 Intake & Output 09/29/23 09/30/23 09/30/23 18:59 06:59 18:59 Intake Total 338 Balance 338 Intake: Oral 338 Other: Voiding Method Bedside Commode Bedside Commode Bedside Commode # Voids 3 2 - Labs CBC & Chem 7: 09/29/23 04:07 09/29/23 04:07 Labs: Abnormal Lab Results - Last 24 Hours (Table) 09/29/23 09/29/23 09/29/23 Range/Units 12:09 17:14 20:51 POC Glucose (mg/dL) 194 H 132 H 180 H (70-110) mg/dL
[2023-09-30 12:20] LABS: Glucose,Whole Blood 123 mg/dL (70-110)
--- NOTE | 2023-09-30 16:53 | P.PN ---
Subjective Progress Note Date: 09/30/23 Patient is evaluated in follow up today on the medical floor. Continues to report blood in the stool. Also reports episode of epistaxis and having some sinus tenderness on the right side. Her nose bleed did spontaneously resolve. No headache. Her hemoglobin was not checked today. REVIEW OF SYSTEMS: CONSTITUTIONAL: No fever, no malaise,. CARDIOVASCULAR: No chest pain, no palpitations, no syncope. PULMONARY: No shortness of breath, no cough, GASTROINTESTINAL: No diarrhea, no nausea, no vomiting, no abdominal pain. NEUROLOGICAL: No headaches, no weakness, PHYSICAL EXAMINATION: GENERAL: The patient is alert and oriented x3, not in any acute distress. Well developed, well nourished. HEENT: Pupils are round and equally reacting to light. EOMI. No scleral icterus. No conjunctival pallor. Normocephalic, atraumatic. No pharyngeal erythema. No thyromegaly. CARDIOVASCULAR: S1 and S2 present. No murmurs, rubs, or gallops. PULMONARY: Chest is clear to auscultation, no wheezing or crackles. ABDOMEN: Soft, nontender, nondistended, normoactive bowel sounds. No palpable organomegaly. MUSCULOSKELETAL: No joint swelling or deformity. EXTREMITIES: No cyanosis, clubbing, or pedal edema. Left foot in a wrap and brace. NEUROLOGICAL: Gross neurological examination did not reveal any focal deficits. Awake, alert, oriented x3. SKIN: No rashes. Assessment and Plan Acute GI bleed with bright red blood per rectum and emesis Diabetes Mellitus type 2 Chronic charcot foot and diabetic wound to the left foot. Hx of asthma with no acute exacerbations Hypertension Hyperlipidemia, hx Hx migraines GI prophylaxis Full Code Plan Patient scheduled to undergo EGD and Colonoscopy on Sunday with Dr. Michele Continue to monitor hemoglobin and for signs of continued bleeding Consider dose of Afrin if patient continues with epistaxis. Transfuse PRBC for hemoglobin less than 7 Patient to follow up at [place] for her bilateral charcot foot and wounds supposed to be getting surgery on Sunday of this week Continue accuchecks ACHS and sliding scale insulin The impression and plan of care has been dictated by Geena Cooley, Nurse Practitioner as directed. Dr. Priyanka MD I have performed a history and physical examination and medical decision making of this patient, discussed the same with the dictator, and agree with the dictators assessment and plan as written, documented as a scribe. Based on total visit time, I have performed more than 50% of this visit. Objective - Vital Signs Vital signs: Vital Signs Temp 98.2 F 09/30/23 15:00 Pulse 76 09/30/23 15:00 Resp 16 09/30/23 15:00 BP 164/97 09/30/23 15:00 Pulse Ox 99 09/30/23 15:00 FiO2 Intake & Output 09/29/23 09/30/23 09/30/23 18:59 06:59 18:59 Intake Total 338 485 Balance 338 485 Intake: Oral 338 485 Other: Voiding Method Bedside Commode Bedside Commode Bedside Commode # Voids 3 2 2 - Labs CBC & Chem 7: 09/29/23 04:07 09/29/23 04:07 Labs: Abnormal Lab Results - Last 24 Hours (Table) 09/29/23 09/29/23 09/30/23 Range/Units 17:14 20:51 12:19 POC Glucose (mg/dL) 132 H 180 H 123 H (70-110) mg/dL Assessment and Plan Time with Patient: Less than 30
[2023-09-30 17:26] LABS: Glucose,Whole Blood 106 mg/dL (70-110)
[2023-09-30 19:51] LABS: Glucose,Whole Blood 138 mg/dL (70-110)
[2023-10-01 06:02] LABS: Glucose,Whole Blood 120 mg/dL (70-110)
[2023-10-01 06:48] LABS: HCT 32.6 % (34.0-46.0); HGB 10.6 gm/dL (11.4-16.0); MCH 28.6 pg (25.0-35.0); MCHC 32.6 g/dL (31.0-37.0); MCV 87.9 fL (80.0-100.0); Mean Platelet Volume 7.6; Platelet Count 381 k/uL (150-450); RBC 3.71 m/uL (3.80-5.40); RDW 14.1 % (11.5-15.5); WBC 7.1 k/uL (3.8-10.6)
[2023-10-01 07:34] LABS: African American GFR (CKD) >90 (>60 ml/min/1.73 sqM); Anion Gap 5 mmol/L; Blood Urea Nitrogen 13 mg/dL (7-17); Calcium 9.4 mg/dL (8.4-10.2); Carbon Dioxide 21 mmol/L (22-30); Chloride 111 mmol/L (98-107); Glucose 107 mg/dL (74-99); Non-African American GFR(CKD) >90 (>60 ml/min/1.73 sqM); Potassium 4.8 mmol/L (3.5-5.1); Sodium 137 mmol/L (137-145)
[2023-10-01] MEDS: PATIENT'S OWN (Dulaglutide [Trulicity] 0.75 MG/0.5 ML Each) SQ SCH (07:53)
[2023-10-01 09:05] VITALS: RESP 16
[2023-10-01 12:19] LABS: Glucose,Whole Blood 89 mg/dL (70-110)
[2023-10-01] MEDS ORDERED: fentaNYL (PF) 50 MCG/ML 2 ML AMP ONE (12:38)
[2023-10-01] MEDS ORDERED: ONDANSETRON 4 MG/2 ML VIAL ONE (12:38)
[2023-10-01] MEDS ORDERED: PROPOFOL 10 MG/ML 20 ML VIAL IV ONE (12:38)
[2023-10-01] MEDS ORDERED: LIDOCAINE 2% (PF) 20 MG/ML 5 ML VIAL ONE (12:38)
[2023-10-01] MEDS: LACTATED RINGERS 1,000 ML IV ONE (12:41)
--- NOTE | 2023-10-01 13:17 | P.OP ---
Date of Procedure: 10/01/23 Preoperative Diagnosis: Abdominal pain GI bleed Postoperative Diagnosis: Mild antral gastritis Normal colon Procedure(s) Performed: EGD Colonoscopy Anesthesia: MAC Surgeon: Kelvin Michele Pathology: other (Antrum) Condition: stable Disposition: PACU Description of Procedure: The patient was placed on the endoscopy table in the lateral position. She received IV sedation. The gastro/oropharynx passed in the esophagus and the stomach. Scope was then placed through the pylorus. The first and second portion of the duodenum appeared normal. Scope was then brought back to the antrum this appeared mildly inflamed. A biopsy was performed. The scope was then retroflexed and the Mainer of the stomach appeared normal. The GE junction was at 40 cm. The distal esophagus appeared normal. The proximal esophagus appeared normal. Scope withdrawn for the patient. Next digital rectal exam was performed. This revealed no abnormalities. The patient had poor colon prep. There is a large amount liquid stool seen in the colon. The colonoscope was then advanced. The scope was placed into the right colon. Due to the poor prep the colonoscope could not be advanced. Scope was withdrawn. The visualized right colon, transverse colon and descending and sigmoid colon appeared normal however this is a very poor prep with limited view of the mucosa. There is no blood seen in the colon. The scope was brought back to the rectum this appeared normal. Scope withdrawn for the patient.
--- NOTE | 2023-10-01 14:17 | P.PN ---
Subjective Progress Note Date: 10/01/23 CHIEF COMPLAINT: GI bleed HISTORY OF PRESENT ILLNESS: Patient initially scheduled for EGD and colonoscopy today. She was having bright red blood per rectum and had blood in her emesis. She completed the [employer] bowel prep but was not having bowel movements. She reports that she is now having bowel movements. PHYSICAL EXAM: VITAL SIGNS: Reviewed. GENERAL: Well-developed in no acute distress. ABDOMEN: Soft. Nondistended. NEUROLOGIC: Alert and oriented. Cranial nerves II through XII grossly intact. ASSESSMENT: 1. Acute GI bleed with bright red stools and bright red blood in emesis 2. Possible diverticular bleed PLAN: -Patient scheduled for EGD and colonoscopy today with Dr. Michele Physician Farm Equipment Engineer note has been reviewed by physician. Signing provider agrees with the documented findings, assessment, and plan of care. Objective - Vital Signs Vital signs: Vital Signs Temp 98.9 F 10/01/23 07:00 Pulse 76 10/01/23 07:00 Resp 16 10/01/23 07:00 BP 168/96 10/01/23 07:00 Pulse Ox 99 10/01/23 07:00 FiO2 Intake & Output 09/30/23 10/01/23 10/01/23 18:59 06:59 18:59 Intake Total 817 Balance 817 Intake: Oral 817 Other: Voiding Method Bedside Commode Bedside Commode Bedside Commode # Voids 2 2 # Bowel Movements 1 - Labs CBC & Chem 7: 10/01/23 06:19 10/01/23 06:19 Labs: Abnormal Lab Results - Last 24 Hours (Table) 09/30/23 10/01/23 10/01/23 Range/Units 19:50 06:01 06:19 RBC 3.71 L (3.80-5.40) m/uL Hgb 10.6 L (11.4-16.0) gm/dL Hct 32.6 L (34.0-46.0) % Chloride (98-107) mmol/L Carbon Dioxide (22-30) mmol/L Glucose (74-99) mg/dL POC Glucose (mg/dL) 138 H 120 H (70-110) mg/dL 10/01/23 Range/Units 06:19 RBC (3.80-5.40) m/uL Hgb (11.4-16.0) gm/dL Hct (34.0-46.0) % Chloride 111 H (98-107) mmol/L Carbon Dioxide 21 L (22-30) mmol/L Glucose 107 H (74-99) mg/dL POC Glucose (mg/dL) (70-110) mg/dL
--- NOTE | 2023-10-01 14:47 | P.DS ---
Providers Date of admission: 09/28/23 06:33 Attending physician: Guadalupe Albarran Consults: 09/28/23 06:33 Consult Physician Urgent Consulting Provider: Kimberly Byrnes Consult Reason/Comments: GI bleeding Do you want consulting provider notified?: Yes 09/28/23 08:15 Consult Physician Routine Consulting Provider: Kelvin Michele Consult Reason/Comments: abdominal pain Do you want consulting provider notified?: Already Contacted Primary care physician: [facility] Course: Discharge diagnoses; #Acute GI Bleed with bright red blood with stools and emesis - Patient scheduled for EGD and colonoscopy on Sunday (09/30) with Dr. Michele - Rule out/in upper vs. lower GI bleed - Monitor hemoglobin; transfuse for less than 7 hgb - Monitor signs and symptoms of bleeding - Placed on Protonix 40mg IV BID #Diabetes - Will continue her NovoLog, Trulicity and her Lantus is switched to Levemir in facility - Accuchecks ordered Q6 to monitor her glucose #Chronic Wound - Charcot's diabetic foot - Currently undergoing surgical attempt to preserve her foot # Diabetic neuropathy, Charcot's foot Hospital course; 37 year old female who presented to the emergency department with abdominal pain, nausea/vomiting with blood in her stool and vomiting. She awoke this morning with the urge to have a bowel movement and proceeded to have a bowel movement with red blood in the toilet. Additionally, she had an episode where she vomited blood while making her way to the bathroom, which she also describes as having been a bright red in color. She also reports having had 2 episodes where she feels as though she may have passed out during this time. Her pain was localized to the right lower quadrant, which was then followed by the nausea and vomiting, "fire engine red" colored blood twice and a soft bowel movement with which she noted " cranberry juicecranberry juice" colored blood in the toilet. States that currently the pain spreads across the entirity of her lower abdomen." Her Hgb 9.8, platelets 414,000. She had a CT Abdomen/Pelvis done which showed diverticulosis of the left side and sigmoid colon without any signs of diverticulitis. She has had no further episodes of nausea, vomiting or a bowel movement since arriving in the emergency department. Initial lab work done in the ER showed Hbg 9.8, Hct 29.5, BUN 35, Cr 1.11, Glucose 165, Albumin 3.1 and positive stool occult blood. CT Abdomen/Pelvis showed no CT evidence for acute appendicitis, no acute findings seen compatible for patient's symptoms of right lower quadrant abdominal pain. Diverticula throughout the left and sigmoid colon without CT evidence of diverticulitis. 09/28 -patient seen at bedside today. Glucose POC as of 6:17 AM was 105, patient received 30 units of Levemir and 2 units of NovoLog at 9:05 PM on 09/27. She did receive 4 mg of morphine at 10:16 PM on 09/27 for discomfort as well as 4 mg of Zofran. She states she had her first bowel movement last night since the incident where she saw the blood in her stool, states she thinks she saw some blood with her bowel movement today, however states if there was it was not very much. Seems to be improving however patient's hemoglobin dropped from 9.8 on 09/27 to 8.0 today on 09/28. Will need to be monitored closely. She is resting comfortably in bed, mentioned she still has some lower abdominal pain and discomfort but otherwise has no current complaints. Labs drawn today - Hgb 8.0, Hct 25.2, MCHC 31.7, BUN 33.1, calcium 8.6 09/30 - patient seen at bedside today. States she is feeling pretty good, however states she did not have her first bowel movement since beginning the prep for her colonoscopy until this morning. She had 2 bowel movements this morning, both of which according to her had "not much", if any, blood in them. Serum glucose this morning 107. Patient given her 30 units of Levemir last night at 8:27 PM. Patient scheduled to complete EGD and colonoscopy today. Scope was completed today, first and second portion of the duodenum appeared normal. The antrum looked mildly inflamed. biopsy was taken. The digital rectal exam was performed revealing no abnormalities. The patient had a poor colon prep, no blood seen in the colon, although the view was limited. She is having a procedure done tomorrow, 10/01, at [facility] in [place] to remove the cage on her left foot. PHYSICAL EXAMINATION: GENERAL: The patient is alert and oriented x3, not in any acute distress. Well developed, well nourished. HEENT: Pupils are round and equally reacting to light. EOMI. No scleral icterus. No conjunctival pallor. Normocephalic, atraumatic. No pharyngeal erythema. No thyromegaly. CARDIOVASCULAR: S1 and S2 present. No murmurs, rubs, or gallops. PULMONARY: Chest is clear to auscultation, no wheezing or crackles. ABDOMEN: Soft, nontender, nondistended, normoactive bowel sounds. No palpable organomegaly. MUSCULOSKELETAL: No joint swelling or deformity. EXTREMITIES: No cyanosis, clubbing, or pedal edema. NEUROLOGICAL: Gross neurological examination did not reveal any focal deficits. SKIN: No rashes. Dictation was produced using [employer] (formerly [employer]) dictation software. please excuse any grammatical, word or spelling errors. Dr. Priyanka MD I have performed a history and physical examination and medical decision making of this patient, discussed the same with the the resident, and agree with the assessment and plan as written. I performed brief physical exam. Patient Condition at Discharge: Good Plan - Discharge Summary Discharge Rx Participant: Yes New Discharge Prescriptions: New Pantoprazole Sodium [Protonix] 20 mg PO BID 7 Days #14 tab Continue Loratadine [Claritin] 10 mg PO DAILY lisinopriL [Zestril] 20 mg PO DAILY INSULIN LISPRO (humaLOG) [humaLOG] See Protocol SQ AC-TID methocarbamoL [Robaxin] 500 mg PO QID PRN PRN Reason: Muscle Spasm HYDROcodone/APAP 10-325MG [Hudson 10-325] 1 tab PO QID PRN PRN Reason: Pain amLODIPine [Norvasc] 10 mg PO DAILY Dulaglutide [Trulicity] 0.75 mg SQ MO INSULIN LISPRO (humaLOG) [humaLOG] 8 units SQ AC-TID Magnesium Oxide [Mag-Ox] 400 mg PO DAILY Insulin Glargine [Lantus Vial] 30 unit SQ HS Gabapentin [Neurontin] 100 mg PO QID PRN PRN Reason: Pain Amoxicillin 500 mg PO TID Discharge Medication List Dulaglutide [Trulicity] 0.75 mg SQ MO 06/30/22 [History] Loratadine [Claritin] 10 mg PO DAILY 08/11/22 [History] Amoxicillin 500 mg PO TID 09/28/23 [History] Gabapentin [Neurontin] 100 mg PO QID PRN 09/28/23 [History] HYDROcodone/APAP 10-325MG [Hudson 10-325] 1 tab PO QID PRN 09/28/23 [History] INSULIN LISPRO (humaLOG) [humaLOG] 8 units SQ AC-TID 09/28/23 [History] INSULIN LISPRO (humaLOG) [humaLOG] See Protocol SQ AC-TID 09/28/23 [History] Insulin Glargine [Lantus Vial] 30 unit SQ HS 09/28/23 [History] Magnesium Oxide [Mag-Ox] 400 mg PO DAILY 09/28/23 [History] amLODIPine [Norvasc] 10 mg PO DAILY 09/28/23 [History] lisinopriL [Zestril] 20 mg PO DAILY 09/28/23 [History] methocarbamoL [Robaxin] 500 mg PO QID PRN 09/28/23 [History] Pantoprazole Sodium [Protonix] 20 mg PO BID 7 Days #14 tab 10/01/23 [Rx] Follow up Appointment(s)/Referral(s): Kimberly Byrnes MD [STAFF PHYSICIAN] - 1 Week (Call to schedule colonoscopy for GI bleed within next 1-2 weeks) Tracie Beach MD [Primary Care Provider] - 1-2 days Patient Instructions/Handouts: Gastrointestinal Bleeding (DC), Abdominal Pain (ED) Discharge Disposition: HOME SELF-CARE
[2023-10-01 15:13] VITALS: TEMP 98.2
[2023-10-01 15:15] VITALS: PULSE 81
[2023-10-01 15:26] VITALS: BP 152/87
== END 2023-10-01 15:35 | disposition home or self-care (01) ==
LOC: EC 04:22 → 6NMEDSUR 06:33
PROVIDERS: ADMIT Hospitalist; ATTEND Hospitalist
DX: K29.51 Unspecified chronic gastritis with bleeding (principal); E78.5 Hyperlipidemia, unspecified; I10 Essential (primary) hypertension; E11.610 Type 2 diabetes mellitus with diabetic neuropathic arthropathy; J45.909 Unspecified asthma, uncomplicated; G43.909 Migraine, unspecified, not intractable, without status migrainosus; E11.40 Type 2 diabetes mellitus with diabetic neuropathy, unspecified; E66.9 Obesity, unspecified; Z68.35 Body mass index [BMI] 35.0-35.9, adult; Z85.43 Personal history of malignant neoplasm of ovary; Z89.422 Acquired absence of other left toe(s); Z89.421 Acquired absence of other right toe(s); Z90.49 Acquired absence of other specified parts of digestive tract; Z79.899 Other long term (current) drug therapy; Z79.4 Long term (current) use of insulin; Z79.85 Long-term (current) use of injectable non-insulin antidiabetic drugs; Z79.84 Long term (current) use of oral hypoglycemic drugs; Z88.1 Allergy status to other antibiotic agents
CPT/HCPCS: 96376 ×5; 96361 ×2; 96374; 96375; 99285; 36415; 86900; 86901; 88305; 80053; 80048 ×2; 83605; 84484; 85025; 85027 ×2; 85610; 85730; 86850; 82272; 81025; 74176; 45378; 43239; G0378 ×4; J2270 ×2; J2405 ×4; J3010; J2704; J2001; J2470 ×4